=== PATIENT | male | born 1935 | race Caucasian/White ===

== ENCOUNTER 2018-01-05 09:30 | Day surgery (SDC) | payer MEDICARE, SELFPAY ==
--- NOTE | 2018-01-04 12:53 | W.PIPPEYE ---
History of Present Illness Chief Complaint: Progressive decreased vision, both eyes Narrative: The patient is an 82-year-old male who presented with complaints of progressive decreased vision in both eyes at both distance and near. He has difficulty reading and watching television. On examination he was noted to have visual acuity of 20/50 in each eye in the presence of moderate nuclear and cortical cataracts OU. He also has significant disc cupping OU. The option of cataract surgery was offered to the patient and he wished to proceed. The patient desires cataract surgery in both eyes on the same day. The risks of bilateral sequential same-day cataract surgery were discussed with the patient. Understanding the risks, he wished to proceed. [facility] Medical History Nuclear cataract of both eyes (Acute) Cortical cataract of both eyes (Acute) Social History Smoking/Tobacco Use Status: Never Meds Home Medications Medication Instructions Recorded Confirmed Type levothyroxine 88 mcg PO DAILY 12/31/17 12/31/17 History aspirin 325 mg PO DAILY 01/01/18 01/01/18 History Allergies Allergy/AdvReac Type Severity Reaction Status Date / Time No Known Allergies Allergy Unverified 06/07/14 00:18 Exam OCULAR EXAM:: Visual acuity at distance: 20/50 right eye, 20/50 left eye. Pupils: Pupils equal, round, and reactive without afferent pupillary defect IOP: 16 OD, 15 OS Extraocular Motility: Normal Pertinent Slit Lamp Findings: Pupils dilate to 5 mm OU. 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 2+ nuclear with 3+ cortical cataract is present OD. 2+ nuclear/cortical cataract is present OS. 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 Dilated Funduscopic Examination: Disc cupping is 0.85 OD, 0.7 OS. The optic nerves have good color. Retinal vasculature shows marketed AV nicking. The right macula is normal. There is a trace epiretinal membrane in the left eye with mild pigmentary changes. Peripheral retina is normal OU. BRIGHTNESS ACUITY TESTING (BAT):: Off right eye 20/50, left eye 20/50. Low: Right eye 20/60, left eye 20/25. Medium: Right eye 20/80, left eye 20/40. High: Right eye 20/125, left eye 20/60. Assessment and Plan (1) Cortical cataract of both eyes: Current visit: No Status: Acute Assessment: Visually significant bilateral cortical cataracts with desire for bilateral sequential same-day cataract surgery Plan: Bilateral sequential same-day cataract surgery under local anesthesia with MAC (2) Nuclear cataract of both eyes: Current visit: No Status: Acute Assessment: Visually significant bilateral nuclear cataracts with desire for bilateral sequential same-day cataract surgery Plan: Bilateral sequential same-day cataract surgery under local anesthesia with MAC Note: NOTE:: The details of the planned surgery, including the risks, indications,limitations,expectations,outcome and possible complications were explained to the patient. The patient understands the complications including, but not limited to: infection, hemorrhage, posterior dislocation of the lens or nuclear fragments which may require the intervention of a vitreoretinal surgeon, possible loss of the eye, or from anesthetic complications. The patient has been made aware of the option of not having surgery, that vision following surgery may not be equal to that prior to surgery, and that the planned surgery may not achieve the intended results. Following this discussion, which the patient appeared to understand, the patient wishes to proceed with cataract surgery with lens implantation of the affected eye to improve and maximize vision. In addition, the risks of bilateral same-day sequential cataract surgery was discussed with the patient, and understanding the risks he wished to proceed. Intracameral moxifloxacin will be used for antibiotic prophylaxis, as well as a postoperative topical combination of moxifloxacin/dexamethasone.
[2018-01-05 09:53] VITALS: BP 133/74; PULSE 73; RESP 16; TEMP 35.6; O2SAT 94
[2018-01-05] MEDS: Tetracaine 0.5% 4 ML BTL OU ×4 (10:03→11:03)
[2018-01-05] MEDS: Lactated Ringers 1,000 ML 30 ML IV (10:35)
[2018-01-05] MEDS: Lidocaine 2% Jelly 6 ML SYR ×2 (11:03→11:49)
[2018-01-05] MEDS: Balanced Salt Soln.-PLUS 500 ML BAG ×2 (11:12→11:48)
[2018-01-05] MEDS: Lidocaine 1% Pres-Free 5 ML VIAL ×2 (11:12→11:48)
[2018-01-05] MEDS: Povidone-Iodine Ophth 30 ML BTL ×2 (11:20→11:49)
--- NOTE | 2018-01-05 12:08 | W.PM.DSUDISC ---
Discharge Plan Discharge Details Reason For Visit: CATARACT OU Attending Provider: Onel De La Cruz Primary Care Provider: Philip Manning Home Meds and New Rx's Prescriptions: No Action levothyroxine 88 mcg Capsule 88 mcg PO DAILY RF: 0 aspirin 325 mg Tablet,Delayed Release (Dr/Ec) 325 mg PO DAILY RF: 0 Discharge Instructions Stand Alone Forms: Post-op Topical Cataract, Kassie Hugo (DSU) DS: Diagnosis Discharge Diagnosis (1) Cortical cataract of both eyes: Status: Resolved (2) Nuclear cataract of both eyes: Status: Resolved (3) Status post cataract extraction and insertion of intraocular lens of right eye: Status: Chronic (4) Status post cataract extraction and insertion of intraocular lens of left eye: Status: Chronic
--- NOTE | 2018-01-05 12:09 | W.PM.OP ---
Date of service: 01/05/18 Time of Service: 12:09 Operative Note PRE-OP DIAGNOSIS: Cataract, both eyes POST-OP DIAGNOSIS: same PROCEDURE: Immediately sequential bilateral cataract extraction using phacoemulsification with intraocular lens implants SURGEON: Onel De La Cruz ANESTHESIA: MAC and local (sub-tenon's anesthetic infiltration) PATHOLOGY: none sent COMPLICATIONS: None Patient was transported to: same day Patient's condition: stable Implants: Harshad and Harshad Vision / [employer] Tecnis ZCB00 Indications: Progressive decreased vision due to cataract, both eyes Procedure Description: CATARACT SURGERY OPERATIVE REPORT PREOPERATIVE DIAGNOSIS: Bilateral nuclear/cortical cataract, symptomatic, with desire for same day immediately sequential bilateral cataract surgery POSTOPERATIVE DIAGNOSIS: Same OPERATION: Immediately sequential bilateral cataract extraction using phacoemulsification with posterior chamber intraocular lens implant, both eyes IOL OS: IOL Pullboat Engineer/Model: J&J Vision / ANGELICA Tecnis ZCB00 IOL Power: + 23.50 diopters IOL Serial Number: [id number] Optic Diameter: 6.0mm Haptic/Overall Diameter: 13.0mm PHACO INFO OS: Chalo Centurion Vision System with OZil and Active Fluidics Cumulative Dispersed Energy (CDE): 7.03 seconds IOL OD: IOL Pullboat Engineer/Model: J&J Vision / ANGELICA Tecnis ZCB00 IOL Power: + 23.50 diopters IOL Serial Number: [id number] Optic Diameter: 6.0mm Haptic/Overall Diameter: 13.0mm PHACO INFO OD: Chalo [employer]ion Vision System with OZil and Active Fluidics Cumulative Dispersed Energy (CDE): 4.07 seconds SURGEON: Onel De La Cruz MD, N[place]HOLE ANESTHESIA: Monitored Anesthesia Care (MAC), with local sub-tenon's anesthetic infiltration COMPLICATIONS: None SPECIMENS: None INDICATIONS FOR PROCEDURE: The patient is an 82-year-old male with history of bilateral nuclear and cortical cataracts. He was noted to have significant symptoms related to his cataracts and desired cataract surgery and attempt to improve and maximize his vision. In addition, he desired bilateral same-day sequential cataract surgery. Understanding the risks inherent in bilateral same-day surgery, he wished to proceed. PROCEDURE: The correct surgical eye(s) were identified and marked as the left and right eye and the pupils were dilated in the preoperative area using mydriatics and cycloplegics. The dilated pupil size was 5.5 mm in each eye. The patient elected to proceed without IV or oral sedation. The patient was brought to the operating room where cardiopulmonary monitoring was instituted and surgical time-out was performed, confirming the correct operative eye sequence and IOL power, which happens to be the same for each eye. Topical anesthesia was administered and ophthalmic povidone-iodine 5% was instilled into the conjunctival fornices of the left eye. Lidocaine gel was applied to the cornea and the tiarra-ocular area was prepped with Betadine 10% solution and draped in the usual sterile fashion for intraocular surgery. Steri-strips were used to cover the lashes and lid margins and an adhesive eye drape was placed. Care was taken to isolate the lashes and lid margins under the Steri-strips and adhesive eye drape. A lid speculum was placed between the lids of the operative eye and the Walter-Lam operating microscope was maneuvered into position. Ravinder scissors were then used to make a conjunctival buttonhole approximately 6mm posterior to the limbus in the inferonasal quadrant. Blunt dissection was carried out to expose bare sclera, and a blunt-tipped sub-tenon?s anesthesia cannula was introduced and passed posteriorly along the globe where non-preserved plain lidocaine was injected into posterior sub-Tenon?s space. A sideport knife was used to make a paracentesis port at the 12:00 postion and the anterior chamber was filled with Healon GV. A 2.4mm keratome knife was used to create a half-thickness groove at the limbus and then to construct a three-plane near-clear corneal tunnel extending 2.0mm into clear cornea at the 3:00 position. A flap was raised on the anterior capsule and capsulorhexis forceps were used to complete a continuous curvilinear capsulorhexis of 5.0mm. Balanced salt solution was then used to perform cortical cleaving hydrodissection and nuclear hydrodelineation until the lens could be freely rotated within the capsular bag. The lens nucleus was then disassembled and removed within the capsular bag and iris plane using phacoemulsification. Residual cortical material was removed using the 45-degree angled silicone I/A tip with 0.3mm port. The posterior capsule was carefully polished to remove as much residual lens epithelial cells as safely possible. The capsular bag was then inflated and the anterior chamber deepened with viscoelastic. The lens implant described above was inserted into the capsular bag using the ANGELICA [place] Injector. A Kuglen hook was used to dial the IOL into position. Residual viscoelastic was then removed first from posterior to the IOL, then from the anterior chamber using the I/A handpiece. The lens implant was noted to center nicely within the capsular bag. The incisions were stromally hydrated, and the anterior chamber was reformed using BSS. Then 0.4cc of moxifloxacin 1.5mg/ml were injected into the capsular bag and anterior chamber. The incisions were checked with a Weck spear and found to be secure. Several drops of ophthalmic povidone-iodine 5% were then applied to the eye followed by two drops of Imprimis combination moxifloxacin/dexamethasone solution. The drapes were removed and a clear plastic protective eye shield was placed over the eye. Attention was then directed to the right eye, where an entirely new set of instruments, medications, viscoelatics, fluids, drapes, gowns, gloves were used as if it was a completely different I have a completely different patient. Topical anesthesia was administered to the right eye and ophthalmic povidone-iodine 5% was instilled into the conjunctival fornices. Lidocaine gel was applied to the cornea and the tiarra-ocular area was prepped with Betadine 10% solution and draped in the usual sterile fashion for intraocular surgery. Steri-strips were used to cover the lashes and lid margins and an adhesive eye drape was placed. Care was taken to isolate the lashes and lid margins under the Steri-strips and adhesive eye drape. A lid speculum was placed between the lids of the right ye and the Walter-Lam operating microscope was maneuvered into position. Ravinder scissors were then used to make a conjunctival buttonhole approximately 6mm posterior to the limbus in the inferonasal quadrant. Blunt dissection was carried out to expose bare sclera, and a blunt-tipped sub-tenon?s anesthesia cannula was introduced and passed posteriorly along the globe where non-preserved plain lidocaine was injected into posterior sub-Tenon?s space. A sideport knife was used to make a paracentesis port at the 7:00 postion and the anterior chamber was filled with Healon GV. A 2.4mm keratome knife was used to create a half-thickness groove at the limbus and then to construct a three-plane near-clear corneal tunnel extending 2.0mm into clear cornea at the 10;00 position. A flap was raised on the anterior capsule and capsulorhexis forceps were used to complete a continuous curvilinear capsulorhexis of 5.0. 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 Balanced salt solution was then used to perform cortical cleaving hydrodissection and nuclear hydrodelineation until the lens could be freely rotated within the capsular bag. The lens nucleus was then disassembled and removed within the capsular bag and iris plane using phacoemulsification. Residual cortical material was removed using the 45-degree angled silicone I/A tip with 0.3mm port. The posterior capsule was carefully polished to remove as much residual lens epithelial cells as safely possible. The capsular bag was then inflated and the anterior chamber deepened with viscoelastic. The lens implant described above was inserted into the capsular bag using the ANGELICA [place] Injector. A Kuglen hook was used to dial the IOL into position. Residual viscoelastic was then removed first from posterior to the IOL, then from the anterior chamber using the I/A handpiece. The lens implant was noted to center nicely within the capsular bag. The incisions were stromally hydrated, and the anterior chamber was reformed using BSS. Then 0.4cc of moxifloxacin 1.5mg/ml were injected into the capsular bag and anterior chamber. The incisions were checked with a Weck spear and found to be secure. Several drops of ophthalmic povidone-iodine 5% were then applied to the eye followed by two drops of Imprimis combination moxifloxacin/dexamethasone solution. The drapes were removed and a clear plastic protective eye shield was placed over the eye. The patient was then returned to Same Day Surgery in stable condition.
--- NOTE | 2018-01-05 12:13 | ROE_ITS ---
Date of service: 01/05/18 Time of Service: 12:09 Operative Note PRE-OP DIAGNOSIS: Cataract, both eyes POST-OP DIAGNOSIS: same PROCEDURE: Immediately sequential bilateral cataract extraction using phacoemulsification with intraocular lens implants SURGEON: Onel De La Cruz ANESTHESIA: MAC and local (sub-tenon's anesthetic infiltration) PATHOLOGY: none sent COMPLICATIONS: None Patient was transported to: same day Patient's condition: stable Implants: Harshad and Harshad Vision / [employer] Tecnis ZCB00 Indications: Progressive decreased vision due to cataract, both eyes Procedure Description: CATARACT SURGERY OPERATIVE REPORT PREOPERATIVE DIAGNOSIS: Bilateral nuclear/cortical cataract, symptomatic, with desire for same day immediately sequential bilateral cataract surgery POSTOPERATIVE DIAGNOSIS: Same OPERATION: Immediately sequential bilateral cataract extraction using phacoemulsification with posterior chamber intraocular lens implant, both eyes IOL OS: IOL Bowling Ball Mold Assembler/Model: J&J Vision / ANGELICA Tecnis ZCB00 IOL Power: + 23.50 diopters IOL Serial Number: [id number] Optic Diameter: 6.0mm Haptic/Overall Diameter: 13.0mm PHACO INFO OS: Chalo [employer] Vision System with OZil and Active Fluidics Cumulative Dispersed Energy (CDE): 7.03 seconds IOL OD: IOL Bowling Ball Mold Assembler/Model: J&J Vision / ANGELICA Tecnis ZCB00 IOL Power: + 23.50 diopters IOL Serial Number: [id number] Optic Diameter: 6.0mm Haptic/Overall Diameter: 13.0mm PHACO INFO OD: Chalo [employer] Vision System with OZil and Active Fluidics Cumulative Dispersed Energy (CDE): 4.07 seconds SURGEON: Onel De La Cruz MD, NICHOLE ANESTHESIA: Monitored Anesthesia Care (MAC), with local sub-tenon's anesthetic infiltration COMPLICATIONS: None SPECIMENS: None INDICATIONS FOR PROCEDURE: The patient is an 82-year-old male with history of bilateral nuclear and cortical cataracts. He was noted to have significant symptoms related to his cataracts and desired cataract surgery and attempt to improve and maximize his vision. In addition, he desired bilateral same-day sequential cataract surgery. Understanding the risks inherent in bilateral same-day surgery, he wished to proceed. PROCEDURE: The correct surgical eye(s) were identified and marked as the left and right eye and the pupils were dilated in the preoperative area using mydriatics and cycloplegics. The dilated pupil size was 5.5 mm in each eye. The patient elected to proceed without IV or oral sedation. The patient was brought to the operating room where cardiopulmonary monitoring was instituted and surgical time-out was performed, confirming the correct operative eye sequence and IOL power, which happens to be the same for each eye. Topical anesthesia was administered and ophthalmic povidone-iodine 5% was instilled into the conjunctival fornices of the left eye. Lidocaine gel was applied to the cornea and the tiarra-ocular area was prepped with Betadine 10% solution and draped in the usual sterile fashion for intraocular surgery. Steri -strips were used to cover the lashes and lid margins and an adhesive eye drape was placed. Care was taken to isolate the lashes and lid margins under the Steri -strips and adhesive eye drape. A lid speculum was placed between the lids of the operative eye and the Walter-Lam operating microscope was maneuvered into position. Ravinder scissors were then used to make a conjunctival buttonhole approximately 6mm posterior to the limbus in the inferonasal quadrant. Blunt dissection was carried out to expose bare sclera, and a blunt-tipped sub-tenon? s anesthesia cannula was introduced and passed posteriorly along the globe where non-preserved plain lidocaine was injected into posterior sub-Tenon?s space. A sideport knife was used to make a paracentesis port at the 12:00 postion and the anterior chamber was filled with Healon GV. A 2.4mm keratome knife was used to create a half-thickness groove at the limbus and then to construct a three-plane near-clear corneal tunnel extending 2.0mm into clear cornea at the 3:00 position. A flap was raised on the anterior capsule and capsulorhexis forceps were used to complete a continuous curvilinear capsulorhexis of 5.0mm. Balanced salt solution was then used to perform cortical cleaving hydrodissection and nuclear hydrodelineation until the lens could be freely rotated within the capsular bag. The lens nucleus was then disassembled and removed within the capsular bag and iris plane using phacoemulsification. Residual cortical material was removed using the 45-degree angled silicone I/A tip with 0.3mm port. The posterior capsule was carefully polished to remove as much residual lens epithelial cells as safely possible. The capsular bag was then inflated and the anterior chamber deepened with viscoelastic. The lens implant described above was inserted into the capsular bag using the ANGELICA [place] Injector. A Kuglen hook was used to dial the IOL into position. Residual viscoelastic was then removed first from posterior to the IOL, then from the anterior chamber using the I/A handpiece. The lens implant was noted to center nicely within the capsular bag. The incisions were stromally hydrated , and the anterior chamber was reformed using BSS. Then 0.4cc of moxifloxacin 1.5mg/ml were injected into the capsular bag and anterior chamber. The incisions were checked with a Weck spear and found to be secure. Several drops of ophthalmic povidone-iodine 5% were then applied to the eye followed by two drops of Imprimis combination moxifloxacin/dexamethasone solution. The drapes were removed and a clear plastic protective eye shield was placed over the eye. Attention was then directed to the right eye, where an entirely new set of instruments, medications, viscoelatics, fluids, drapes, gowns, gloves were used as if it was a completely different I have a completely different patient. Topical anesthesia was administered to the right eye and ophthalmic povidone- iodine 5% was instilled into the conjunctival fornices. Lidocaine gel was applied to the cornea and the tiarra-ocular area was prepped with Betadine 10% solution and draped in the usual sterile fashion for intraocular surgery. Steri -strips were used to cover the lashes and lid margins and an adhesive eye drape was placed. Care was taken to isolate the lashes and lid margins under the Steri -strips and adhesive eye drape. A lid speculum was placed between the lids of the right ye and the Walter-Alm operating microscope was maneuvered into position. Ravinder scissors were then used to make a conjunctival buttonhole approximately 6mm posterior to the limbus in the inferonasal quadrant. Blunt dissection was carried out to expose bare sclera, and a blunt-tipped sub-tenon? s anesthesia cannula was introduced and passed posteriorly along the globe where non-preserved plain lidocaine was injected into posterior sub-Tenon?s space. A sideport knife was used to make a paracentesis port at the 7:00 postion and the anterior chamber was filled with Healon GV. A 2.4mm keratome knife was used to create a half-thickness groove at the limbus and then to construct a three-plane near-clear corneal tunnel extending 2.0mm into clear cornea at the 10;00 position. A flap was raised on the anterior capsule and capsulorhexis forceps were used to complete a continuous curvilinear capsulorhexis of 5.0. 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 Balanced salt solution was then used to perform cortical cleaving hydrodissection and nuclear hydrodelineation until the lens could be freely rotated within the capsular bag. The lens nucleus was then disassembled and removed within the capsular bag and iris plane using phacoemulsification. Residual cortical material was removed using the 45-degree angled silicone I/A tip with 0.3mm port. The posterior capsule was carefully polished to remove as much residual lens epithelial cells as safely possible. The capsular bag was then inflated and the anterior chamber deepened with viscoelastic. The lens implant described above was inserted into the capsular bag using the ANGELICA [place] Injector. A Kuglen hook was used to dial the IOL into position. Residual viscoelastic was then removed first from posterior to the IOL, then from the anterior chamber using the I/A handpiece. The lens implant was noted to center nicely within the capsular bag. The incisions were stromally hydrated , and the anterior chamber was reformed using BSS. Then 0.4cc of moxifloxacin 1.5mg/ml were injected into the capsular bag and anterior chamber. The incisions were checked with a Weck spear and found to be secure. Several drops of ophthalmic povidone-iodine 5% were then applied to the eye followed by two drops of Imprimis combination moxifloxacin/dexamethasone solution. The drapes were removed and a clear plastic protective eye shield was placed over the eye. The patient was then returned to Same Day Surgery in stable condition.
[2018-01-05 13:05] VITALS: BP 116/66; PULSE 70; RESP 20; TEMP 37.2; O2SAT 94
== END 2018-01-05 13:01 | disposition home or self-care (01) ==
LOC: SUR 09:32
PROVIDERS: PCP Family Medicine Adult Medicine; Visit Provider Ophthalmology
PROC: (CPT 66984; principal; 2018-01-05 12:30)
DX: H25.813 Combined forms of age-related cataract, bilateral (principal); I10 Essential (primary) hypertension
CPT/HCPCS: 66984; V2632

== ENCOUNTER 2018-03-13 13:28 | Emergency (ER) | payer MEDICARE, SELFPAY ==
[2018-03-13 13:34] VITALS: BP 139/89; PULSE 83; RESP 24; TEMP 36.5; O2SAT 97
--- NOTE | 2018-03-13 13:45 | DI.RAD_ITS ---
SYMPTOMS/DIAGNOSIS: SHORTNESS OF BREATH, COUGHING X 3 WEEKS CHEST X-RAY, AP AND LATERAL: Comparison is 02/07/12. The heart size and pulmonary vasculature are within normal limits. The patient has an aortic valve replacement. 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 No evidence of a superimposed pneumonia or congestive heart failure is seen. No gross effusions or pneumothoraces are identified. Degenerative changes are seen in the spine. IMPRESSION: No acute pulmonary process.
--- NOTE | 2018-03-13 13:54 | ED.GENADUL_ITS ---
Discharge Plan Disposition Patient Disposition: HOME Discharge Details Chief Complaint: Chest Pain Primary Care Provider: Philip Manning ED Provider: Carlyn Lucas Home Meds and New Rx's Prescriptions: Continued levothyroxine 88 mcg Capsule 88 mcg PO DAILY RF: 0 aspirin 325 mg Tablet,Delayed Release (Dr/Ec) 325 mg PO DAILY RF: 0 ciprofloxacin HCl 500 mg Tablet 1 tab PO DAILY RF: 0 prednisone 10 mg Tablets,Dose Pack RF: 0 Breo Ellipta 100-25 mcg/dose Blister With Device 1 inh INHALATION DAILY RF: 0 Discharge Data Discharge Date/Time-TO BE ENTERED AT DEPARTURE: 03/13/18 18:28 Medical Decision Making <Dimitrios Najera NP - Last Filed: 03/22/18 21:45> Patient presenting to the emergency department for chief complaint of chest pain. Patient states that this is been going on now for a couple days now. He reports that he took some antacid this morning thinking it would help his symptoms but this did not improve. Patient was encouraged by family members to come to the emergency department for evaluation. Patient does state that he is recently been not been on prednisone for his pulmonary fibrosis but denies any difficulty breathing compared to baseline. Physical exam is unremarkable and nondiagnostic but plan to draw troponin and rule out ACS.. There is concern for this being more of a gastritis and GERD type issue given the patient has been on prednisone for multiple days now and has history of gastritis. Patient given GI cocktail pending results Review of labs show a nonspecific leukocytosis and electrolyte abnormalities along with an increase of BUN/creatinine may be attributed to some dehydration the patient states he has not been eating or drinking as much since the onset of what he initially thought was heartburn. Chest x-ray shows no acute abnormalities. Patient was agreeable to second troponin. Patient ordered a 500 mL bolus for concern of dehydration. Pending repeat troponin test care of patient was signed out to Carlyn CATES. Patient did state some improvement after GI cocktail and reduction of discomfort. ECG Data Attestation: I personally reviewed and interpreted this ECG (s) as follows: Prior ECG tracings: available for review Interpretation: sinus rhythm , rate 69, RBBB, no acute ischemic ST changes <LOAN Yan - Last Filed: 03/14/18 00:08> Care was transition to myself rom Arturo Najera NP with repeat troponin pending. Initial laboratory workup significant for possible dehydration, unknown baseline for the patient. He has history of pulmonary fibrosis, aortic valve replacement. He initially reported some neck that he had been having symptoms for the past few days. However, will speak with family currently this is been waxing and waning over the past several months. Sounds to be much increased with food intake. Has been symptom-free since being here. Was given bolus while here. Patient is also begun on a recent prednisone course for his pulmonary fibrosis. [employer] was concerned that htis may have been associated with g astritis, GERD increasing from prednisone. He does report that this is been helping with his cough and shortness of breath. He is on home oxygen. Per [employer], initial EKG was significant for right bundle branch block which is unchanged from previous. Repeat troponin remains less than 0.02. I reevaluated the patient and spoke with the patient is family regarding concerns, laboratory evaluation. Again, we went over the history and I agree with [employer] assessment that this is likely stemming from gastric source. He reports that he has discussed beginning omeprazole with his primary care as they have been concerned with this previously. He has not done this as of yet. Advised that he begin the omeprazole. Encouraged hydration. He was given very strict return precautions and advised to follow-up with his primary care next week. I did advise if symptoms persist he may need a EGD versus continued cardiac workup. All other questions and concerns were addressed and they are in agreement with this plan. He is able to return with new or worsening symptoms HPI <Dimitrios Najera NP - Last Filed: 03/22/18 21:45> General Mode of arrival: ambulatory . Date/Time Provider Initiated Documentation: 03/13/18 13:45 . Limitations to Documentation: no limitations . Information obtained by: patient . History of Present Illness 82 year old M presents to the emergency department with the chief complaint of chest pain, heartburn, described as mild, with intensity rated at 1. Quality is described as burning and aching, and is localized to the chest. Patient reports no radiation. Patient started experiencing this day(s) (2) and it has been constant. No relieving factors improve symptom(s), Patient did receive the following treatments prior to arrival, other (Antacid) Related Data Home Medications Medication Instructions Recorded Confirmed levothyroxine 88 mcg PO DAILY 12/31/17 03/13/18 aspirin 325 mg PO DAILY 01/01/18 03/13/18 Breo Ellipta 1 inh INHALATION DAILY 03/13/18 03/13/18 ciprofloxacin HCl 1 tab PO DAILY 03/13/18 03/13/18 prednisone 03/13/18 Allergies Allergy/AdvReac Type Severity Reaction Status Date / Time No Known Allergies Allergy Unverified 03/13/18 14:17 General Stated Complaint: Chest Pain SHAHRIAR: 2 Review of Systems <Dimitrios Najera NP - Last Filed: 03/22/18 21:45> Constitutional Denies chills, Denies fever(s) and Reports malaise Cardiovascular Reports as per HPI, Reports chest pain, Denies chest pain with activity, Denies syncope, Denies irregular heart rhythm, Denies palpitations and Reports dyspnea on exertion Respiratory Denies chest congestion, Denies excessive phlegm production and Reports dyspnea on exertion Gastrointestinal Denies abdominal pain, Reports heartburn, Denies nausea and Denies vomiting Neurologic Denies syncope Psychiatric Denies anxiety Endocrine Denies palpitations PFSH <Dimitrios Najera NP - Last Filed: 03/22/18 21:45> Medical History Hypothyroidism (Chronic) Pulmonary fibrosis (Acute) Hypertension (Chronic) Cortical cataract of both eyes (Resolved) Nuclear cataract of both eyes (Resolved) Surgical History Aortic valve replaced (Acute) Status post cataract extraction and insertion of intraocular lens of left eye (Chronic 01/05/18) Status post cataract extraction and insertion of intraocular lens of right eye (Chronic 01/05/18) Social History Smoking/Tobacco Use Status: Never Exam <Dimitrios Najera NP - Last Filed: 03/22/18 21:45> Const General: cooperative, healthy appearing, comfortable, no acute distress, not diaphoretic and not ill appearing Nutritional Appearance: average body habitus Orientation: alert, awake and oriented x3 Limitations: mental status not altered Neck Neck: normal visual inspection, full ROM, trachea midline, supple and no anterior neck swelling Thyroid: thyroid normal Carotids: normal carotid upstroke and no bruits Chest Chest: normal inspection of the chest Resp Effort & Inspection: normal respiratory effort, able to speak in complete sentences, respiratory effort not decreased, no grunting and not labored Auscultation: rhonchi right upper and right lower Cardio Jugular venous pressure: no JVD Palpation: normal PMI Rate: regular rate Rhythm: regular rhythm Heart Sounds: S1 normal, S2 normal, no click, no gallops, no murmurs and no rubs Bruits: no abdominal aortic bruits and no carotid bruits Pulses: radial pulses present bilaterally 2+ GI Inspection: normal to inspection Palpation: soft, no aortic enlargement, no pulsatile masses and nontender Auscultation: normal bowel sounds Skin General skin exam: no rashes or lesions noted Neuro General: alert, awake, oriented x3, tone normal and moves all extremities Course <Dimitrios Najera NP - Last Filed: 03/22/18 21:45> Vital Signs Temperature 36.5 C 03/13/18 13:34 Pulse 83 03/13/18 13:34 Respiratory Rate 24 03/13/18 13:34 Blood Pressure 139/89 03/13/18 13:34 Pulse Oximetry 97 03/13/18 13:34 Temperature 36.5 C 03/13/18 13:34 Temperature Source Temporal Artery Scan 03/13/18 13:34 Pulse 83 03/13/18 13:34 Respiratory Rate 24 03/13/18 13:34 Blood Pressure 139/89 03/13/18 13:34 Pulse Oximetry 97 03/13/18 13:34 Oxygen Delivery Method Nasal Cannula 03/13/18 13:34 Oxygen Flow Rate 2 03/13/18 13:34 Sign Out <Dimitrios Najera NP - Last Filed: 03/22/18 21:45> Sign Out Data: Sign Out Comment: Patient signed out to Carlyn CATES for follow-up of second troponin, and reassessment and disposition as needed. High concern of gastritis/heartburn due to prednisone use and patient stating not taking meds with food. Otherwise patient states asymptomatic at time of signout Last updated by Dimitrios Najera NP at 03/13/18 16:42
[2018-03-13 14:03] LABS: Abs Immature Grans 0.07 k/cumm (0.0-0.09); Absolute Basophil Count 0.01 k/cumm (0.0-0.2); Absolute Eosinophil Count 0.01 k/cumm (0.0-0.7); Absolute Neutrophil Count 11.49 k/cumm (1.2-6.7); Basophils % 0.1; Eosinophils % 0.1; HCT 46.2 % (40.0-50.0); HGB 14.5 g/dL (13.5-17.5); Immature Grans % 0.5; Lymphocytes % 6.3; Mean Corp. HGB Concentration 31.4 g/dL (32.0-36.0); Mean Corpuscular Hemoglobin 27.9 pg (27.0-33.0); Mean Platelet Volume 8.7 fL (8.0-11.0); Monocytes % 3.1; Neutrophils % 89.9; Platelet Count 361 x1000/uL (130-400); RBC 5.19 m/cumm (4.50-6.00); RBC Distribution Width 15.2 % (11.8-14.1); White Blood Cell Count 12.78 k/cumm (4.4-10.8)
[2018-03-13 14:05] LABS: Absolute Lymphocyte Count 0.81 k/cumm (1.2-3.4)
[2018-03-13 14:16] LABS: INR 1.1 (0.9-1.1); Prothrombin Time 10.6 sec (9.3-11.0)
[2018-03-13 14:23] LABS: ALT 26 U/L (12-78); AST 27 U/L (15-37); Albumin 2.9 g/dL (3.4-5.0); Alkaline Phosphatase 140 U/L (46-116); Anion Gap 6.1 mmol/L (3-11); BUN 34 mg/dL (7-18); Bilirubin, Total 0.3 mg/dL (0.2-1.0); CO2 31.9 mmol/L (21.0-32.0); CREATININE 1.33 mg/dL (0.70-1.30); Calcium 8.9 mg/dL (8.5-10.1); Chloride 97 mmol/L (98-107); Estimated GFR 51.48 (mL/min/1.73m2); Glucose 139 mg/dL (70-100); NT-proBNP 312 pg/mL; Potassium 5.2 mmol/L (3.5-5.1); Sodium 135 mmol/L (136-145)
[2018-03-13 14:28] LABS: Troponin I < 0.02 ng/mL (0.00-0.06)
--- NOTE | 2018-03-13 14:34 | NUR.NOTE ---
patient medicated per [employer] order Nursing Note:
[2018-03-13 15:24] VITALS: PULSE 72; RESP 20; O2SAT 96
[2018-03-13 15:30] VITALS: PULSE 68; RESP 15; O2SAT 95
[2018-03-13 15:31] VITALS: BP 108/66; PULSE 66; PULSE 82; RESP 19; O2SAT 96
--- NOTE | 2018-03-13 15:34 | NUR.NOTE ---
patient reports chest burning is improved from intervention Nursing Note:
[2018-03-13 15:40] VITALS: PULSE 68; RESP 26; O2SAT 96
[2018-03-13] MEDS: Normal Saline 500 ML IV (16:36)
--- NOTE | 2018-03-13 16:37 | NUR.NOTE ---
patient mediicated per MD order Nursing Note:
[2018-03-13 17:57] LABS: Troponin I < 0.02 ng/mL (0.00-0.06)
[2018-03-13 18:15] VITALS: BP 151/83; PULSE 80; RESP 18; O2SAT 96
--- NOTE | 2018-03-13 18:16 | NUR.NOTE ---
IV dc'd per PA order, patient to be discharged home with daughter Nursing Note:
== END 2018-03-13 18:28 | disposition home or self-care (01) ==
PROVIDERS: Nurse Practitioner Family; Emergency Provider Physician Assistant; PCP Family Medicine Adult Medicine
DX: R07.9 Chest pain, unspecified (principal); I45.10 Unspecified right bundle-branch block; I10 Essential (primary) hypertension
CPT/HCPCS: 36415; 80053; 93005; 96360; 99285; 71046; 83735; 83880; 84484; 85025; 85610; 85730; 93010; 99284

== ENCOUNTER 2019-12-31 07:50 | Emergency (ER) | payer MEDICARE, SELFPAY ==
[2019-12-31 07:57] VITALS: BP 174/90; PULSE 78; RESP 20; TEMP 36.4; O2SAT 96
--- NOTE | 2019-12-31 08:13 | ED.GENADUL_ITS ---
Discharge Plan Disposition Patient Disposition: AGAINST MEDICAL ADVICE Condition: Stable Discharge Details Clinical Impression: Epistaxis Primary Care Provider: Philip Manning ED Provider: Rajinder Grajeda Home Meds and New Rx's Prescriptions: No Action aspirin 325 mg tablet,delayed release (DR/EC) 81 mg PO DAILY RF: 0 omeprazole 20 mg capsule,delayed release(DR/EC) 20 mg PO DAILY RF: 0 Stiolto Respimat 2.5-2.5 mcg/actuation Mist 1 spray INHALATION DAILY RF: 0 baclofen 5 mg tablet 5 mg PO DAILY RF: 0 levothyroxine 88 mcg Capsule 88 mcg PO DAILY RF: 0 ciprofloxacin HCl 500 mg Tablet 1 tab PO DAILY RF: 0 prednisone 10 mg Tablets,Dose Pack 10 mg PO DAILY RF: 0 Medical Decision Making 84 yo male on aspirin no other blood thinners comes in after he started to have spontaneous epistaxis out of the right nare this morning aroud 630. Denies any trauma, fevers, chest pain, headache or dyspnea. Has bright red blood coming out of the right nare and entire anterior nare is hyperemic. After 15 minutes of holding pressure had no relief and did not feel afrin was going to control the bleed so after discussion and consent I placed a rhino rocket with successful cessation of bleeding, will monitor here. shortly after placing rhino rocket he started to have oozing out of the left nose, no visible bleeding noted on exam but even after pressure and nose blowing had definitive bleeding coming out of the left nose. He consents to having another rhino rocket placed in other nose, will have nursing place on tele and will evaluate for anemic and thromboyctopenia. BP now 127/[address] rivera from ENT at [facility] who recommends observing in the ED and attempting removal of one rhino rocket and if successful can be d/c'd, but if unsuccessful to call back. Will continue to monitor remains hd stable patient still had oozing from the left nare after removal. I recommended I replace the packing but he declined and is requesting d/c. He does not want to wait for me to speak with ENT and doesn't want another packing, he understands risks of leaving including and disability that could be permanent and has the capacity to make his own decisions. HE understands if bleeding doesn't stop or if he changes his mind he should be seen in the emergency department Differential Diagnosis Differential Diagnosis: epistaxis, anterior nosebleed, posterior nosebleed HPI General Mode of arrival: ambulatory . Date/Time Provider Initiated Documentation: 12/31/19 07:57 . Limitations to Documentation: no limitations . Information obtained by: patient . History of Present Illness 84 year old M presents to the emergency department with the chief complaint of nosebleed, described as moderate, No relieving factors improve symptom(s), No exacerbating factors reported . Patient did receive the following treatments prior to arrival, none Related Data Home Medications Medication Instructions Recorded Confirmed levothyroxine 88 mcg PO DAILY 12/31/17 12/31/19 ciprofloxacin HCl 1 tab PO DAILY 03/13/18 12/31/19 prednisone 10 mg PO DAILY 03/13/18 12/31/19 aspirin 325 mg tablet,delayed 81 mg PO DAILY tab 02/22/19 12/31/19 release baclofen 5 mg PO DAILY 12/31/19 12/31/19 omeprazole 20 mg PO DAILY 12/31/19 12/31/19 tiotropium-olodaterol [Stiolto 1 spray INHALATION DAILY 12/31/19 12/31/19 Respimat] Allergies Allergy/AdvReac Type Severity Reaction Status Date / Time No Known Allergies Allergy Unverified 12/31/19 08:13 General Stated Complaint: Epistaxis SHAHRIAR: 2 Review of Systems All systems reviewed & are unremarkable except as noted in HPI and below Constitutional Constitutional: Denies chills and Denies fever(s) Cardiovascular Cardiovascular: Denies chest pain and Denies dyspnea Respiratory Respiratory: Denies cough and Denies dyspnea Gastrointestinal Gastrointestinal: Denies abdominal pain, Denies nausea and Denies vomiting Musculoskeletal Musculoskeletal: Denies joint swelling [facility] Medical History (Updated 12/31/19 @ 12:17 by Rajinder Grajeda MD) Cortical cataract of both eyes Hypertension Hypothyroidism Nuclear cataract of both eyes Pulmonary fibrosis Surgical History (Updated 02/22/19 @ 09:46 by Roselyn Harrell RN, RN) Aortic valve replaced (~05/21/16) History of lung biopsy (~2005) Status post cataract extraction and insertion of intraocular lens of left eye (01/05/18) Status post cataract extraction and insertion of intraocular lens of right eye (01/05/18) Family History (Updated 02/22/19 @ 09:48 by Roselyn Harrell RN, RN) Father No problems noted. Mother Myocardial infarction Social History (Updated 02/22/19 @ 09:49 by Roselyn Harrell RN, RN) Smoking/Tobacco Use Status: Former Tobacco Use Quit Date: 02/17/09 Smoking risk assessment performed?: Yes Drug use: Never Do you feel safe at home: Yes Do you feel safe in your relationship?: Yes Exam Const General: no acute distress Orientation: alert HENMT Head: normal to inspection Ears: external ears normal General nose exam: epistaxis Mouth: moist mucous membranes Eyes General: appearance normal, both eyes and all related structures Neck Neck: normal visual inspection Resp Effort & Inspection: normal respiratory effort and able to speak in complete sentences Cardio Rate: regular rate Skin General skin exam: no rashes or lesions noted Neuro General: patient alert and patient oriented x3 Extrem General: normal to inspection Psych Mental Status: mental status grossly normal Course Vital Signs Vital signs: Vital Signs Temperature 36.4 C L 12/31/19 07:57 Pulse 78 12/31/19 07:57 Respiratory Rate 12/31/19 07:57 Blood Pressure 174/90 H 12/31/19 07:57 Pulse Oximetry 96 12/31/19 07:57 Temperature 36.4 C L 12/31/19 07:57 Temperature Source Skin 12/31/19 07:57 Pulse 78 12/31/19 07:57 Respiratory Rate 12/31/19 07:57 Blood Pressure 174/90 H 12/31/19 07:57 Blood Pressure Position Sitting 12/31/19 07:57 Pulse Oximetry 96 12/31/19 07:57 Oxygen Delivery Method Room Air 12/31/19 07:57 Oxygen Flow Rate 0 12/31/19 07:57 Procedures Epistaxis Control Time Out Performed: Yes Nostril: right Direct Inspection: yes Clots Removed by: blowing nose Device Inserted: other (rhino rocket 7.5cm)
[2019-12-31] MEDS: Tranexamic Acid 1,000 MG/10 ML VIAL 1000 MG (08:20)
[2019-12-31 09:16] LABS: Abs Immature Grans 0.03 10^3/uL (0.0-0.06); Absolute Basophil Count 0.09 10^3/uL (0.0-0.2); Absolute Eosinophil Count 0.37 10^3/uL (0.0-0.7); Absolute Lymphocyte Count 1.54 10^3/uL (1.2-3.4); Absolute Monocyte Count 0.89 10^3/uL (0.1-0.8); Absolute Neutrophil Count 5.51 10^3/uL (1.2-6.7); Basophils % 1.1; Eosinophils % 4.4; HCT 49.1 % (40.0-50.0); HGB 15.5 g/dL (13.5-17.5); Immature Grans % 0.4; Lymphocytes % 18.3; MCH 30.2 pg (27.0-33.0); MCHC 31.6 % (32.0-36.0); MCV 95.7 fL (80-95); MPV 9.3 fL (8.0-11.0); Monocytes % 10.6; Neutrophils % 65.2; Nucleated RBC 0 %; Platelet Count 244 10^3/uL (130-400); RBC 5.13 10^6/uL (4.36-5.78); RDW 12.6 % (11.8-14.1); WBC 8.43 10^3/uL (4.4-10.8)
[2019-12-31 09:34] LABS: INR 1.1 (0.9-1.1); PTT Activated 23.9 sec (21.0-27.5); Prothrombin Time 10.7 sec (9.3-11.0)
[2019-12-31] MEDS: Oxymetazolone 0.05% SPRAY 15 ML BTL NS (11:49)
[2019-12-31 12:30] VITALS: BP 125/80; PULSE 75; RESP 16; O2SAT 95
== END 2019-12-31 13:00 | disposition left against medical advice (07) ==
PROVIDERS: Emergency Provider Emergency Medicine; PCP Family Medicine Adult Medicine
DX: R04.0 Epistaxis (principal); I10 Essential (primary) hypertension; Z53.29 Procedure and treatment not carried out because of patient's decision for other reasons; Z79.82 Long term (current) use of aspirin
CPT/HCPCS: 30901; 36415; 99283; 85025; 85610; 85730; 99281

== ENCOUNTER 2021-03-30 02:15 | Outpatient (CLI) | payer MEDICARE, SELFPAY ==
[2021-03-30 08:39] LABS: HCT 52.8 % (40.0-50.0); HGB 16.5 g/dL (13.5-17.5); MCH 29.7 pg (27.0-33.0); MCHC 31.3 % (32.0-36.0); MPV 9.6 fL (8.0-11.0); Platelet Count 157 10^3/uL (130-400); RBC 5.56 10^6/uL (4.36-5.78); RDW 13.2 % (11.8-14.1); RDW-SD 46.1 fL; WBC 9.82 10^3/uL (4.4-10.8)
[2021-03-30 09:43] LABS: ALT 33 U/L (16-63); AST 33 U/L (15-37); Albumin 3.5 g/dL (3.4-5.0); Alkaline Phosphatase 138 U/L (46-116); Anion Gap 4.8 mmol/L (3-11); BUN 22 mg/dL (7-18); Bilirubin, Total 0.6 mg/dL (0.2-1.0); CO2 33.2 mmol/L (21.0-32.0); CREATININE 0.9 mg/dL (0.70-1.30); Calcium 8.8 mg/dL (8.5-10.1); Calculated LDL 141 mg/dL (<100); Chloride 103 mmol/L (98-107); Cholesterol 226 mg/dL (<200); Glucose 83 mg/dL (74-106); HDL Cholesterol 69 mg/dL (40-60); Potassium 4.2 mmol/L (3.5-5.1); Sodium 141 mmol/L (136-145); TSH (W/Ref FT4) 5.81 uIU/mL (0.36-3.74); Total Protein 7.3 g/dL (6.4-8.2); Triglyceride 84 mg/dL (<150)
[2021-03-30 10:02] LABS: FREE T4 1.12 ng/dL (0.76-1.46)
== END 2021-03-30 02:16 | disposition home or self-care (01) ==
LOC: LBO 02:15
PROVIDERS: PCP Nurse Practitioner; Visit Provider Nurse Practitioner
DX: I10 Essential (primary) hypertension (principal); E03.9 Hypothyroidism, unspecified; E78.2 Mixed hyperlipidemia
CPT/HCPCS: 36415; 80053; 80061; 85027; 84439; 84443

== ENCOUNTER 2021-09-19 15:24 | Outpatient (REF) | payer MEDICARE, SELFPAY ==
[2021-09-19 20:18] LABS: ALT 24 U/L (16-63); AST 28 U/L (15-37); Albumin 3.3 g/dL (3.4-5.0); Alkaline Phosphatase 136 U/L (46-116); Anion Gap 3.8 mmol/L (3-11); BUN 29 mg/dL (7-18); Bilirubin, Total 0.3 mg/dL (0.2-1.0); CO2 30.2 mmol/L (21.0-32.0); CREATININE 1.4 mg/dL (0.70-1.30); Calcium 8.7 mg/dL (8.5-10.1); Chloride 103 mmol/L (98-107); Estimated GFR 48.16 (mL/min/1.73m2); Glucose 163 mg/dL (74-106); Potassium 4.8 mmol/L (3.5-5.1); Sodium 137 mmol/L (136-145); TSH (W/Ref FT4) 0.51 uIU/mL (0.36-3.74); Total Protein 6.8 g/dL (6.4-8.2)
== END 2021-09-19 15:25 | disposition home or self-care (01) ==
LOC: LBN 15:24
PROVIDERS: PCP Nurse Practitioner; Visit Provider Nurse Practitioner
DX: E03.9 Hypothyroidism, unspecified (principal); I10 Essential (primary) hypertension; E78.00 Pure hypercholesterolemia, unspecified; K52.9 Noninfective gastroenteritis and colitis, unspecified; D64.9 Anemia, unspecified; J84.10 Pulmonary fibrosis, unspecified
CPT/HCPCS: 80053; 84443

== ENCOUNTER 2021-10-22 08:09 | Inpatient (IN) | payer MEDICARE, SELFPAY ==
[2021-10-22] VITALS (55 sets, daily range): BP systolic 103–133; BP diastolic 62–87; PULSE 77–185; RESP 1–54; TEMP 35.6–37.2; O2SAT 90–99
--- NOTE | 2021-10-22 08:00 | RT.EKG_ITS ---
APPROVED REPORT Exam: Resting ECG Reason for Exam: sob Patient Location: E HR:109 bpm ECG Measurements Heart Rate 109 AXIS MN 162 P 21 QRSd 134 QRS -12 QT 367 T 30 QTc 463 Conclusion Sinus tachycardia. Atrial premature complexes.. Left atrial enlargement. Right bundle branch block-old
--- NOTE | 2021-10-22 08:26 | ED.GENADUL_ITS ---
Discharge Plan Disposition Patient Disposition: [facility] INPATIENT Condition: Stable Discharge Details Clinical Impression: Pneumonia Admit Date/Time: 10/22/21 12:27 Admit Provider: Autumn Keller Attending Provider: Autumn Keller Primary Care Provider: Josie Singh ED Provider: Rosalinda Barrientos Medical Decision Making 86-year-old male presents to the ER with chief complaint of cough shortness of breath which is worsened over the last couple of days. Patient reports productive cough. He does have some scattered expiratory wheezes bilaterally, he is got some 3+ pitting edema to his bilateral lower extremities which he reports is chronic for him. Denies any chest pain or abdominal pain. He also has a history of chronic diarrhea. Past medical history includes pulmonary fibrosis, hiatal hernia with GERD, anemia, hyperlipidemia, hypothyroidism, aortic valve replacement, hypertension. Cardiac work-up ordered including serial troponins, proBNP due to pitting edema of the lower extremities and shortness of breath, chest x-ray and COVID testing. CBC shows no leukocytosis, absolute neutrophils 6.89, carbon dioxide 33.0 BUN 24 creatinine 1.2 GFR 58, glucose 148, proBNP is 1921, COVID is pending at this time. Initial troponin is slightly elevated 73. 40 mg furosemide IV ordered due to the proBNP greater than thousand. Azithromycin and Rocephin IV ordered. Will consider admission for pneumonia and CHF. Discussed results with patient and family who verbalized understanding. I did discuss my recommendation for admission for IV antibiotics and further care due to his comorbidities elevated troponin and pulmonary fibrosis. CT chest noted below, questionable fungal balls see impression. 11:00: Hospitalist paged [phone]: Spoke with Dr. Keller regarding patient who will come eval patient in ED after second troponin. Medical Records Medical records reviewed: Yes I reviewed the patient's medical records. Imaging Data Radiologic Study: Imaging: X-Ray Radiologist's impression: Clinical indication: Shortness of breath TECHNIQUE: Imaging protocol: Radiologic exam of the chest. Views: 1 view. COMPARISON: CR XR CHEST 2V PA LATERAL 03/13/2018 1:58 PM FINDINGS: Lungs: Scattered hazy airspace infiltrates are seen in the mid lungs bilaterally and right lower lung, more pronounced since the prior study. There is redemonstration of bilateral pulmonary fibrosis. Pleural spaces: Calcified pleural plaque is noted at the left lung base. There is a small right pleural effusion or pleural thickening. No evidence of pneumothorax. There is biapical pleural thickening. Heart/Mediastinum: The heart size is borderline mildly enlarged. Bones/joints: Sternotomy wires are again noted. IMPRESSION: 1. Pulmonary fibrotic changes with worsening opacities in the mid lungs and right lower lung concerning for superimposed pneumonia since the prior study. 2. Small right pleural effusion or pleural thickening. Thank you for allowing us to participate in the care of your patient. Dictated and Authenticated by: Kevin Hooper MD Radiologic Study #2: Imaging: CT Scan Radiologist's impression: XR PORTABLE CHEST AP 10/22/2021 8:32 AM FINDINGS: Lungs: Subpleural and basilar predominant honeycombing throughout both lungs. Reticular abnormalities and traction bronchiectasis. Several solid opacities identified within the areas of honeycombing within the lung base with index 2.1 x 1.9 cm opacity noted on series 3, image 439. Findings are suggestive of fungal balls. Pleural spaces: Unremarkable. No pneumothorax. No pleural effusion. Heart: Coronary artery calcifications present. The heart appears borderline enlarged. No pericardial effusion. Lymph nodes: Prominent mediastinal lymph nodes. Index 1.3 x 1 cm precarinal node noted on series 3, image 215. Evaluation for hilar adenopathy is limited in the absence of IV contrast. No axillary adenopathy. Vasculature: Moderate atherosclerotic calcification of the aorta and its branches. Dilated pulmonary arteries with the main pulmonary artery measuring 3.6 cm in diameter. Diaphragm: Large hiatal hernia. Bones/joints: Mild compression deformities of T8 and L1. Soft tissues: Unremarkable. IMPRESSION: 1. Interstitial lung disease with usual interstitial pneumonitis (UIP) pattern. Differential diagnosis for etiology includes idiopathic pulmonary fibrosis or secondary underlying systemic diseases such as connective tissue disease. 2. Scattered solid opacities identified within areas of honeycombing in the lung bases suggestive of fungal balls, possibly aspergillomas. 3. Nonspecific prominent mediastinal lymph nodes. 4. Mild compression deformities of T8 and L1. 5. Dilated pulmonary arteries which can be seen in the setting of pulmonary hypertension. Thank you for allowing us to participate in the care of your patient. Dictated and Authenticated by: Abe Sanchez MD Lab Data Lab results reviewed: Yes I reviewed the patient's lab results. Labs: 10/22/21 10:45 Blood Blood Culture - Pending 10/22/21 08:58 Blood Blood Culture - Pending Laboratory Tests Range/Units 10/22/21 10/22/21 10/22/21 08:54 08:54 08:58 WBC (4.4-10.8) 10^3/uL 8.30 RBC (4.36-5.78) 10^6/uL 5.26 Hgb (13.5-17.5) g/dL 15.7 Hct (40.0-50.0) % 50.0 MCV (80-95) fL 95 MCH (27.0-33.0) pg 29.8 MCHC (32.0-36.0) % 31.4 L RDW (11.8-14.1) % 14.8 H Plt Count (130-400) 10^3/uL 142 MPV (8.0-11.0) fL 9.5 Immature Gran % 0.0 Neutrophils % 74.0 Band Neutrophils % 9 Lymphocytes % 7.0 Monocytes % 9.0 Eosinophils % 1.0 Basophils % 0.0 Nucleated RBC % (0.0-0.3) % 0.0 Absolute Neutrophils (1.2-6.7) 10^3/uL 6.89 H Absolute Lymphocytes (1.2-3.4) 10^3/uL 0.58 L Absolute Monocytes (0.1-0.8) 10^3/uL 0.75 Absolute Eosinophils (0.0-0.7) 10^3/uL 0.08 Absolute Basophils (0.0-0.2) 10^3/uL 0.00 RBC Morphology Normal Sodium (136-145) mmol/L 139 Potassium (3.5-5.1) mmol/L 4.0 Chloride (98-107) mmol/L 102 Carbon Dioxide (21.0-32.0) mmol/L 33.0 H Anion Gap (3-11) mmol/L 4.0 BUN (7-18) mg/dL 24 H Creatinine (0.70-1.30) mg/dL 1.2 Est GFR (CKD-EPI 2020) (mL/min/1.73m2) 58.89 Glucose (74-106) mg/dL 148 H Calcium (8.5-10.1) mg/dL 8.7 Total Bilirubin (0.2-1.0) mg/dL 1.2 H AST (15-37) U/L 41 H ALT (16-63) U/L 34 Alkaline Phosphatase (46-116) U/L 122 H Troponin I (<or=60) ng/L NT-Pro-B Natriuret Pep (<300) pg/mL Total Protein (6.4-8.2) g/dL 7.5 Albumin (3.4-5.0) g/dL 3.1 L COVID-19 Source Nasopharynx SARS-CoV-2 (PCR) (Negative) Negative Influenza Type A (PCR) (Negative) Negative Influenza Type B (PCR) (Negative) Negative RSV (PCR) (Negative) Negative Range/Units 10/22/21 08:58 WBC (4.4-10.8) 10^3/uL RBC (4.36-5.78) 10^6/uL Hgb (13.5-17.5) g/dL Hct (40.0-50.0) % MCV (80-95) fL MCH (27.0-33.0) pg MCHC (32.0-36.0) % RDW (11.8-14.1) % Plt Count (130-400) 10^3/uL MPV (8.0-11.0) fL Immature Gran % Neutrophils % Band Neutrophils % Lymphocytes % Monocytes % Eosinophils % Basophils % Nucleated RBC % (0.0-0.3) % Absolute Neutrophils (1.2-6.7) 10^3/uL Absolute Lymphocytes (1.2-3.4) 10^3/uL Absolute Monocytes (0.1-0.8) 10^3/uL Absolute Eosinophils (0.0-0.7) 10^3/uL Absolute Basophils (0.0-0.2) 10^3/uL RBC Morphology Sodium (136-145) mmol/L Potassium (3.5-5.1) mmol/L Chloride (98-107) mmol/L Carbon Dioxide (21.0-32.0) mmol/L Anion Gap (3-11) mmol/L BUN (7-18) mg/dL Creatinine (0.70-1.30) mg/dL Est GFR (CKD-EPI 2020) (mL/min/1.73m2) Glucose (74-106) mg/dL Calcium (8.5-10.1) mg/dL Total Bilirubin (0.2-1.0) mg/dL AST (15-37) U/L ALT (16-63) U/L Alkaline Phosphatase (46-116) U/L Troponin I (<or=60) ng/L 73 H* NT-Pro-B Natriuret Pep (<300) pg/mL 1921 H Total Protein (6.4-8.2) g/dL Albumin (3.4-5.0) g/dL COVID-19 Source SARS-CoV-2 (PCR) (Negative) Influenza Type A (PCR) (Negative) Influenza Type B (PCR) (Negative) RSV (PCR) (Negative) HPI General Mode of arrival: wheelchair . Date/Time Provider Initiated Documentation: 10/22/21 08:09 . Limitations to Documentation: no limitations . Information obtained by: patient, RN notes reviewed and old records reviewed . HPI Narrative: 86-year-old male presents to the ER with chief complaint of cough shortness of breath which is worsened over the last couple of days. Patient reports productive cough. He does have some scattered expiratory wheezes bilaterally, he is got some 3+ pitting edema to his bilateral lower extremities which he reports is chronic for him. Denies any chest pain or abdominal pain. He also has a history of chronic diarrhea. Past medical history includes pulmonary fibrosis, hiatal hernia with GERD, anemia, hyperlipidemia, hypothyroidism, aortic valve replacement, hypertension. Related Data Home Medications Medication Instructions Recorded Confirmed omeprazole 20 mg capsule,delayed 20 mg PO DAILY #90 caps 04/16/21 10/22/21 release levothyroxine 100 mcg tablet 100 mcg PO DAILY #90 tabs 04/19/21 10/22/21 prednisone 20 mg tablet 20 mg PO DAILY 06/14/21 10/22/21 sulfamethoxazole 800 1 tab PO .COMPLEX Prophylaxis 06/14/21 10/22/21 mg-trimethoprim 160 mg tablet Oxygen 09/19/21 calcium polycarbophil 625 mg 625 mg PO TID 10/22/21 10/22/21 tablet (FiberCon) tiotropium 2.5 mcg-olodaterol 2.5 2 puff inhalation DAILY 10/22/21 10/22/21 mcg/actuation mist for inhalation (Stiolto Respimat) Previous Rx's Medication Instructions Recorded omeprazole 20 mg capsule,delayed 20 mg PO DAILY #90 caps 04/16/21 release levothyroxine 100 mcg tablet 100 mcg PO DAILY #90 tabs 04/19/21 Allergies Allergy/AdvReac Type Severity Reaction Status Date / Time No Known Allergies Allergy Verified 10/22/21 08:25 General Stated Complaint: RespSymp SHAHRIAR: 2 Review of Systems All systems reviewed & are unremarkable except as noted in HPI and below Cardiovascular Cardiovascular: Reports dyspnea Respiratory Respiratory: Reports cough, Reports excessive phlegm production and Reports dyspnea PFSH All Active Problems (Updated 10/22/21 @ 09:15 by Rosalinda Barrientos NP) Pneumonia (Acute) Pulmonary fibrosis, unspecified (Acute ~07/2021) 08/09/21 Dr Cam Pulmonology, [facility] Chronic diarrhea (Acute ~03/2021) 04/12/21 [facility]. Oscar WANG Sciatica (Acute) Hiatal hernia with GERD without esophagitis (Acute) Carpal tunnel syndrome (Acute) Mixed hyperlipidemia (Acute) Testicular hypofunction (Acute) Anemia (Chronic) Sensorineural hearing loss of both ears (Acute) Hypothyroidism (Chronic) Pulmonary fibrosis (Acute) Aortic valve replaced (Acute ~05/21/16) Hypertension (Chronic) Status post cataract extraction and insertion of intraocular lens of left eye (Chronic 01/05/18) Status post cataract extraction and insertion of intraocular lens of right eye (Chronic 01/05/18) Optic disc cupping (Chronic) Epiretinal membrane (ERM) of left eye (Chronic) Hypertensive retinopathy, grade 2 (Chronic) Medical History Cortical cataract of both eyes Nuclear cataract of both eyes Surgical History H/O colonoscopy (~12/2019) Heart valve replaced (~05/2016) Aortic valve History of lung biopsy (~2005) Family History Father Heart attack Social History Smoking/Tobacco Use Status: Former Tobacco Use Quit Date: 02/17/09 Tobacco: How many years used: 3 Smoking risk assessment performed?: Yes Alcohol Intake: never Drug use: Never Substance use type: does not use Adopted: No Foster care: No Household members: family Housing: house Number of Children: 4 number of grandchildren: 17 Communication Needs: Hard of Hearing Do you need help understanding health information?: Often Sexually active: No What is your relationship status?: Panel score (0-1 are the most socially isolated patients): 0 Ceci/Yazidism: Buddhist Do you feel safe at home: Yes Do you feel safe in your relationship?: Yes Exam Narrative Exam Narrative: Constitutional: Alert and oriented x3. Appears stated age. Normal body habitus. Head: Normocephalic, no trauma. Eyes: Pupils PERRL, Red reflex noted, EOM's intact. Eyelids symmetrical without lesions, discharge, or swelling. ENT: Bilateral TM's WNL, External ear normal to inspection, no mastoid TTP, swelling, or erythema, Nasal turbinates WNL, no nasal discharge. Normal dentition, Posterior pharynx WNL, no exudate. Chest: RRR, Normal S1, S2, distal pulses intact. Resp: Scattered expiratory wheezes bilaterally. Abdomen: Soft, non-distended, Normoactive bowel sounds all 4 quads. Musculoskeletal: 5/5 strength to all four extremities. Skin: No suspicious rashes or lesions. Capillary refill less than 2 sec. bilateral 3+ pitting edema in the lower extremities. Neurologic: Cranial nerves II-XII intact. Alert and oriented x 3. Motor: No deficits noted. Sensory: Intact bilaterally all 4 extremities. Reflexes: DTR's intact bilaterally.. Hematologic/Lymphatic: No ecchymosis, no lymphadenopathy. Course Vital Signs Vital signs: Vital Signs Temperature 37.2 C 10/22/21 08:19 Pulse 108 H 10/22/21 08:19 Respiratory Rate 10/22/21 08:19 Blood Pressure 133/86 10/22/21 08:19 Pulse Oximetry 90 L 10/22/21 08:19 Temperature 37.2 C 10/22/21 08:19 Temperature Source Temporal Artery Scan 10/22/21 08:19 Pulse 108 H 10/22/21 08:19 Respiratory Rate 10/22/21 08:19 Blood Pressure 133/86 10/22/21 08:19 Blood Pressure Position Sitting 10/22/21 08:19 Pulse Oximetry 90 L 10/22/21 08:19 Oxygen Delivery Method Nasal Cannula 10/22/21 08:19 Oxygen Flow Rate 3 10/22/21 08:19 Lab/Test Results Lab/Test Results: 10/22/21 08:24 Blood Blood Culture - Pending 10/22/21 08:24 Blood Blood Culture - Pending
--- NOTE | 2021-10-22 08:52 | DI.RAD_ITS ---
Exam(s) XR PORTABLE CHEST AP EXAM: XR PORTABLE CHEST AP CLINICAL HISTORY: SOB, PUI, Productive cough TECHNIQUE: 2D digital imaging was performed. COMPARISON: CR XR CHEST 2V PA LATERAL from 03/13/2018 FINDINGS: LUNGS: There are underlying fibrotic changes. There are superimposed infiltrates seen in both upper and lower lobes. There is significant left apical pleural thickening. Pleural plaques are are noted at the diaphragm. HEART: Aortic valve prosthesis. Heart size within normal limits. AORTA: Normal. BONES: Unremarkable for age. Soft tissues: Unremarkable. IMPRESSION: Bilateral infiltrates superimposed on chronic fibrotic changes. DATA REPOSITORY: RADIATION DOSE DELIVERED:
[2021-10-22] MEDS: methylPREDNISolone SUCC 125 MG VIAL IVP (09:07)
[2021-10-22] MEDS: Albuterol/Ipratropium 3 ML UPD VIAL UPD ×4 (09:07→23:47)
--- NOTE | 2021-10-22 09:09 | DI.VRAD_ITS ---
PROCEDURE INFORMATION: Exam: XR Chest Exam date and time: 10/22/2021 8:32 AM Age: 86 years old Clinical indication: Shortness of breath TECHNIQUE: Imaging protocol: Radiologic exam of the chest. Views: 1 view. COMPARISON: CR XR CHEST 2V PA LATERAL 03/13/2018 1:58 PM FINDINGS: Lungs: Scattered hazy airspace infiltrates are seen in the mid lungs bilaterally and right lower lung, more pronounced since the prior study. There is redemonstration of bilateral pulmonary fibrosis. Pleural spaces: Calcified pleural plaque is noted at the left lung base. There is a small right pleural effusion or pleural thickening. No evidence of pneumothorax. There is biapical pleural thickening. Heart/Mediastinum: The heart size is borderline mildly enlarged. Bones/joints: Sternotomy wires are again noted. IMPRESSION: 1. Pulmonary fibrotic changes with worsening opacities in the mid lungs and right lower lung concerning for superimposed pneumonia since the prior study. 2. Small right pleural effusion or pleural thickening. Dictated and Authenticated by: Kevin Hooper MD. Ordering:KATARNIA Tellez MD
[2021-10-22 09:12] LABS: Abs Immature Grans 0.04 10^3/uL (0.0-0.06); Absolute Monocyte Count 0.75 10^3/uL (0.1-0.8); HGB 15.7 g/dL (13.5-17.5); MCH 29.8 pg (27.0-33.0); MCHC 31.4 % (32.0-36.0); MCV 95 fL (80-95); MPV 9.5 fL (8.0-11.0); Platelet Count 142 10^3/uL (130-400); RBC 5.26 10^6/uL (4.36-5.78); RDW 14.8 % (11.8-14.1); RDW-SD 52.4 fL
[2021-10-22 09:29] LABS: ALT 34 U/L (16-63); AST 41 U/L (15-37); Albumin 3.1 g/dL (3.4-5.0); Alkaline Phosphatase 122 U/L (46-116); BUN 24 mg/dL (7-18); Bilirubin, Total 1.2 mg/dL (0.2-1.0); CREATININE 1.2 mg/dL (0.70-1.30); Calcium 8.7 mg/dL (8.5-10.1); Chloride 102 mmol/L (98-107); Estimated GFR 58.89 (mL/min/1.73m2); Glucose 148 mg/dL (74-106); Sodium 139 mmol/L (136-145); Total Protein 7.5 g/dL (6.4-8.2)
[2021-10-22] MEDS: Furosemide 40 MG/4 ML VIAL IVP (09:30)
[2021-10-22 09:33] LABS: Absolute Eosinophil Count 0.08 10^3/uL (0.0-0.7); Absolute Lymphocyte Count 0.58 10^3/uL (1.2-3.4); Absolute Neutrophil Count 6.89 10^3/uL (1.2-6.7); Bands % 9; Diff Comment Manual Differential; RBC Morphology Normal
[2021-10-22 09:36] LABS: NT-proBNP 1921 pg/mL (<300)
[2021-10-22 09:38] LABS: Troponin I 73 ng/L (<or=60)
[2021-10-22 09:47] LABS: COVID-19 PCR Negative (Negative); Influenza A PCR Negative (Negative); Influenza B PCR Negative (Negative); RSV PCR Negative (Negative)
[2021-10-22 09:49] LABS: Source Nasopharynx
--- NOTE | 2021-10-22 10:20 | DI.CT_ITS ---
Exam(s) CT CHEST WO EXAM: CT CHEST WO CLINICAL HISTORY: SOB, Hx of pulmonary fibrosis TECHNIQUE: Imaging Protocol: Axial computed tomography images with coronal and sagittal reformatted images were created and reviewed CONTRAST MATERIAL: Noncontrast COMPARISON: CR XR CHEST 2V PA LATERAL from 03/13/2018 CR,XR XR PORTABLE CHEST AP from 10/22/2021 FINDINGS: Tracheobronchial tree: Traction bronchiectasis. No mucous plugging. Mediastinum and Celeste: Prominent pulmonary arteries. Dilated pulmonary arteries consistent with pulmo nary hypertension. Pulmonary parenchyma: Severe fibrotic changes with honeycombing bilaterally, greater peripherally as well as traction bronchiectasis. Focal areas of scarring peripherally in the upper lobes. Nodules s een in the bilateral lower lobes, right greater than left within cystic spaces could represent fungus balls. The largest measures 2.1 cm. Pleura: No effusion or pneumothorax. Calcified pleural plaques bilaterally. Heart: The left atrium is mildly dilated. coronary artery calcifications are seen. Aorta: Thoracic aorta non-dilated. Atherosclerotic changes. Aortic valve prosthesis. Upper abdomen: Moderate size hiatal hernia. Lymph nodes: Mildly prominent. Could be reactive. Bones: Sternal wires. Degenerative changes in the thoracic spine. Mild midthoracic and lower thorac ic compression fractures. Tubes, Catheters, and Lines: None Soft tissues: Unremarkable. IMPRESSION: Changes of severe pulmonary fibrosis with traction bronchiectasis. The cystic spaces are greatest in the lower lobes where there are multiple nodules seen, greatest in the right lower lobe which could resent aspergillomas. RADIATION DOSE DELIVERED: 462.04mGy.cm Total DLP DATA REPOSITORY: All CT scans at this facility are submitted to the National Radiology Data Registry (NRDR) Dose Index Registry (DIR) with the [employer] (A[employer]). RADIATION OPTIMIZATION: All CT scans at this facility use at least one of these dose optimization te chniques: automated exposure control; mA and/or kV adjustment per patient size (includes targeted exa ms where dose is matched to clinical indication); or iterative reconstruction.
[2021-10-22] MEDS: AZITHROMYCIN 500 MG in Normal Saline 250 ML 250 MG IVPB (10:38)
--- NOTE | 2021-10-22 10:53 | DI.VRAD_ITS ---
PROCEDURE INFORMATION: Exam: CT Chest Without Contrast; Diagnostic Exam date and time: 10/22/2021 10:15 AM Age: 86 years old Clinical indication: Shortness of breath; Patient HX: HX of pulmonary fibrosis TECHNIQUE: Imaging protocol: Diagnostic computed tomography of the chest without contrast. 3D rendering (Not supervised by radiologist): MIP and/or 3D reconstructed images were created by the technologist. Radiation optimization: All CT scans at this facility use at least one of these dose optimization techniques: automated exposure control; mA and/or kV adjustment per patient size (includes targeted exams where dose is matched to clinical indication); or iterative reconstruction. COMPARISON: XR PORTABLE CHEST AP 10/22/2021 8:32 AM FINDINGS: Lungs: Subpleural and basilar predominant honeycombing throughout both lungs. Reticular abnormalities and traction bronchiectasis. Several solid opacities identified within the areas of honeycombing within the lung base with index 2.1 x 1.9 cm opacity noted on series 3, image 439. Findings are suggestive of fungal balls. Pleural spaces: Unremarkable. No pneumothorax. No pleural effusion. Heart: Coronary artery calcifications present. The heart appears borderline enlarged. No pericardial effusion. Lymph nodes: Prominent mediastinal lymph nodes. Index 1.3 x 1 cm precarinal node noted on series 3, image 215. Evaluation for hilar adenopathy is limited in the absence of IV contrast. No axillary adenopathy. Vasculature: Moderate atherosclerotic calcification of the aorta and its branches. Dilated pulmonary arteries with the main pulmonary artery measuring 3.6 cm in diameter. Diaphragm: Large hiatal hernia. Bones/joints: Mild compression deformities of T8 and L1. Soft tissues: Unremarkable. IMPRESSION: 1. Interstitial lung disease with usual interstitial pneumonitis (UIP) pattern. Differential diagnosis for etiology includes idiopathic pulmonary fibrosis or secondary underlying systemic diseases such as connective tissue disease. 2. Scattered solid opacities identified within areas of honeycombing in the lung bases suggestive of fungal balls, possibly aspergillomas. 3. Nonspecific prominent mediastinal lymph nodes. 4. Mild compression deformities of T8 and L1. 5. Dilated pulmonary arteries which can be seen in the setting of pulmonary hypertension. Dictated and Authenticated by: Abe Sanchez MD. Ordering:KATARINA Tellez MD
[2021-10-22 12:22] LABS: Troponin I 72 ng/L (<or=60)
[2021-10-22 12:27] LABS: Lab Add On Test DONE
[2021-10-22 13:00] LABS: Procalcitonin 0.1 ng/mL
--- NOTE | 2021-10-22 13:08 | HPE_ITS ---
Date of service: 10/22/21 Time of Service: 13:09 Assessment and Plan Assessment and plan (1) Pneumonia: Status: Acute Assessment and plan: while procalcitonin is negative, the patient appears to have purulent sputum and findings of PNA (possibly fungal) on CT. Before receiving antifungal medications, he is already feeling better. Will hold off on starting voriconazole until evaluation by pulmonology tomorrow. Will continue ceftriaxone initiated in the ED, substitute azithromycin with doxycycline (the patient had previously had diarrhea on azithromycin). Increase prednisone to 40 mg PO daily (normally on 20 mg PO daily). Will check urine for strep and legionella, sputum for mycoplasma, as well as obtain Fungitell, aspergillus PCR, sputum culture. Encourage pulmonary toilet. 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 Echo in 07/08 w/ preserved LVEF and well functioning bioprosthetic aortic valve. Will need a repeat echo, but not available at our facility next week. Could be done as outpatient. keep on tele. S/p furosemide 40 mg IV x 1 in the ED - will monitor UOP. (4) Chronic respiratory failure with hypoxia: Status: Chronic Assessment and plan: As above (5) Pulmonary fibrosis, unspecified: Status: Chronic Assessment and plan: As above Increase dose of prednisone to 40 mg PO daily. (6) Hypothyroidism: Status: Chronic Assessment and plan: Check TSH. Continue levothyroxine at outpatient dose. (7) DVT prophylaxis: Status: Acute Assessment and plan: SC enoxaparin (8) Discharge planning issues: Status: Acute Assessment and plan: DNR/DNI as per my conversation with the patient witnessed by his daughter History of Present Illness History of Present Illness Chief Complaint: shortness of breath and productive cough Narrative: Mr Galindo is an 86 year old male with PMHx of chronic hypoxic respiratory failure due to pulmonary fibrosis, normally on 3L of O2 prn, as well as h/o bioprosthetic AVR ([facility] [place]), hypothyroidism, GERD, who presented to [facility] ED today c/o shortness of breath for about 24-48 hrs, accompanied by productive cough with creamy/yellow sputum. He denies fevers/chills. A couple of children residing at his house were sick about a week ago. 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 He notes that his lower extremities became swollen about a year ago. He does not think that he has had an ultrasound of his legs. He did have an echo at [facility] [place] in 07/08, showing LVEF of 70-75% without segmental wall motion abnormalities, RV was normal in size. RV function was normal. His bioprosthetic aortic valve appeared to be functioning normally. There was no evidence of pulmonary hypertension on that echo. In the ED, he was noted to require his baseline 3L of O2 by [place]. He did appear tachypneic and tachycardic (though HRs of 180s recorded in the ED were an error - T waves were being interpreted as QRSs by the software). He has been in sinus arrhythmia. He denied chest pain. He received solumedrol, empiric azithromycin/ceftriaxone, and bronchodilators with significant improvement in his sx. He also received furosemide 40 mg IV x 1. His noncontrast CT of the c hest is c/w interstitial lung disease as well as scattered pulmonary opacities within areas of honeycombing with possibility of fungal balls. Dilated pulmonary arteries were also noted. [facility]ista dmission was requested. The patient does see pulmonology at [facility]. Review of Systems All systems reviewed & are unremarkable except as noted in HPI and below PFSH All Active Problems (Updated 10/22/21 @ 15:32 by Autumn Keller MD) Edema of both lower extremities (Acute) Discharge planning issues (Acute) DVT prophylaxis (Acute) Chronic respiratory failure with hypoxia (Chronic) Pneumonia (Acute) Pulmonary fibrosis, unspecified (Chronic ~07/2021) 08/09/21 Dr Cam Pulmonology, [facility] Chronic diarrhea (Acute ~03/2021) 04/12/21 [facility]. Oscar WANG Sciatica (Acute) Hiatal hernia with GERD without esophagitis (Acute) Carpal tunnel syndrome (Acute) Mixed hyperlipidemia (Acute) Testicular hypofunction (Acute) Anemia (Chronic) Sensorineural hearing loss of both ears (Acute) Hypothyroidism (Chronic) Pulmonary fibrosis (Acute) Aortic valve replaced (Acute ~05/21/16) Hypertension (Chronic) Status post cataract extraction and insertion of intraocular lens of left eye (Chronic 01/05/18) Status post cataract extraction and insertion of intraocular lens of right eye (Chronic 01/05/18) Optic disc cupping (Chronic) Epiretinal membrane (ERM) of left eye (Chronic) Hypertensive retinopathy, grade 2 (Chronic) Medical History (Updated 10/22/21 @ 15:32 by Autumn Keller MD) Cortical cataract of both eyes Malaria Nuclear cataract of both eyes Surgical History (Updated 10/22/21 @ 15:09 by Autumn Keller MD) H/O colonoscopy (~12/2019) H/O esophagogastroduodenoscopy Heart valve replaced (~05/2016) Aortic valve History of lung biopsy (~2005) Family History (Updated 10/22/21 @ 15:10 by Autumn Keller MD) Father Heart attack Mother Heart attack Daughter Cancer Hodgkin's Lymphoma Grandson Cancer synovial sarcoma Social History (Updated 10/22/21 @ 15:11 by Autumn Keller MD) Smoking/Tobacco Use Status: Former Tobacco Use Quit Date: 02/17/09 Tobacco: How many years used: 3 Smoking risk assessment performed?: Yes Alcohol Intake: never Drug use: Never Substance use type: does not use Adopted: No Foster care: No Household members: family Housing: house Number of Children: 4 number of grandchildren: 17 Communication Needs: Hard of Hearing Do you need help understanding health information?: Often Sexually active: No What is your relationship status?: Panel score (0-1 are the most socially isolated patients): 0 Ceci/Zoroastrianism: Tenriism Do you feel safe at home: Yes Do you feel safe in your relationship?: Yes Meds Allergies and Home Medications Allergies Allergy/AdvReac Type Severity Reaction Status Date / Time No Known Allergies Allergy Verified 10/22/21 08:25 Home Medications Medication Instructions Recorded Confirmed Type omeprazole 20 mg capsule,delayed 20 mg PO DAILY #90 caps 04/16/21 10/22/21 Rx release levothyroxine 100 mcg tablet 100 mcg PO DAILY #90 tabs 04/19/21 10/22/21 Rx prednisone 20 mg tablet 20 mg PO DAILY 06/14/21 10/22/21 History sulfamethoxazole 800 1 tab PO .COMPLEX Prophylaxis 06/14/21 10/22/21 History mg-trimethoprim 160 mg tablet Oxygen 09/19/21 History calcium polycarbophil 625 mg 625 mg PO DIRECTED 10/22/21 10/22/21 History tablet (FiberCon) guaifenesin 600 mg tablet, 600 mg PO BID PRN PRN Cough 10/22/21 10/22/21 History extended release 12 hr (Mucinex) tiotropium 2.5 mcg-olodaterol 2.5 2 puff inhalation DAILY 10/22/21 10/22/21 History mcg/actuation mist for inhalation (Stiolto Respimat) Exam Narrative Exam Narrative: General: Very pleasant elderly male who is not having respiratory distress at the time of my exam, receiving nebulizer treatment, A&Ox3, NAD Neurological: A&Ox3, no focal deficits Psychiatric: Appropriate speech pattern/content Skin: Visible skin intact HEENT: Atraumatic, normocephalic, EOMI, dry MM, clear oropharynx, no submandibular or cervical lymphadenopathy, no goiter, + distended neck veins Cardiovascular: RRR with occasional pauses, no m/r/g Lungs: crackles about 1/2 up of B lung cooper Gastrointestinal: soft, nontender, nondistended Genitourinary: deferred Extremities: 2+ BLE pitting edema up to the knees. Results Imaging Additional studies: CXR: Bilateral infiltrates superimposed on chronic fibrotic changes. CT chest w/o contrast: 1. Interstitial lung disease with usual interstitial pneumonitis (UIP) pattern. Differential diagnosis for etiology includes idiopathic pulmonary fibrosis or secondary underlying systemic diseases such as connective tissue disease. 2. Scattered solid opacities identified within areas of honeycombing in the lung bases suggestive of fungal balls, possibly aspergillomas. 3. Nonspecific prominent mediastinal lymph nodes. 4. Mild compression deformities of T8 and L1. 5. Dilated pulmonary arteries which can be seen in the setting of pulmonary hypertension. EKG: ST, RBBB, HR 109, no acute ischemia Labs Result diagrams: 10/22/21 08:54 10/22/21 08:54 Labs: Laboratory Results - last 24 hr 10/22/21 10/22/21 10/22/21 08:54 08:54 08:58 WBC 8.30 RBC 5.26 Hgb 15.7 Hct 50.0 MCV 95 MCH 29.8 MCHC 31.4 L RDW 14.8 H Plt Count 142 MPV 9.5 Immature Gran % 0.0 Neutrophils % 74.0 Band Neutrophils % 9 Lymphocytes % 7.0 Monocytes % 9.0 Eosinophils % 1.0 Basophils % 0.0 Nucleated RBC % 0.0 Absolute Neutrophils 6.89 H Absolute Lymphocytes 0.58 L Absolute Monocytes 0.75 Absolute Eosinophils 0.08 Absolute Basophils 0.00 RBC Morphology Normal Sodium 139 Potassium 4.0 Chloride 102 Carbon Dioxide 33.0 H Anion Gap 4.0 BUN 24 H Creatinine 1.2 Est GFR (CKD-EPI 2020) 58.89 Glucose 148 H Calcium 8.7 Total Bilirubin 1.2 H AST 41 H ALT 34 Alkaline Phosphatase 122 H Troponin I NT-Pro-B Natriuret Pep Total Protein 7.5 Albumin 3.1 L Procalcitonin COVID-19 Source Nasopharynx SARS-CoV-2 (PCR) Negative Influenza Type A (PCR) Negative Influenza Type B (PCR) Negative RSV (PCR) Negative Add-On Test Request 10/22/21 10/22/21 10/22/21 08:58 11:55 11:55 WBC RBC Hgb Hct MCV MCH MCHC RDW Plt Count MPV Immature Gran % Neutrophils % Band Neutrophils % Lymphocytes % Monocytes % Eosinophils % Basophils % Nucleated RBC % Absolute Neutrophils Absolute Lymphocytes Absolute Monocytes Absolute Eosinophils Absolute Basophils RBC Morphology Sodium Potassium Chloride Carbon Dioxide Anion Gap BUN Creatinine Est GFR (CKD-EPI 2020) Glucose Calcium Total Bilirubin AST ALT Alkaline Phosphatase Troponin I 73 H* 72 H* NT-Pro-B Natriuret Pep 1921 H Total Protein Albumin Procalcitonin COVID-19 Source SARS-CoV-2 (PCR) Influenza Type A (PCR) Influenza Type B (PCR) RSV (PCR) Add-On Test Request DONE 10/22/21 11:55 WBC RBC Hgb Hct MCV MCH MCHC RDW Plt Count MPV Immature Gran % Neutrophils % Band Neutrophils % Lymphocytes % Monocytes % Eosinophils % Basophils % Nucleated RBC % Absolute Neutrophils Absolute Lymphocytes Absolute Monocytes Absolute Eosinophils Absolute Basophils RBC Morphology Sodium Potassium Chloride Carbon Dioxide Anion Gap BUN Creatinine Est GFR (CKD-EPI 2020) Glucose Calcium Total Bilirubin AST ALT Alkaline Phosphatase Troponin I NT-Pro-B Natriuret Pep Total Protein Albumin Procalcitonin 0.1 COVID-19 Source SARS-CoV-2 (PCR) Influenza Type A (PCR) Influenza Type B (PCR) RSV (PCR) Add-On Test Request Last Vital Signs Temp 37.2 C 10/22/21 08:19 Pulse 96 H 10/22/21 12:45 Resp 25 H 10/22/21 12:45 BP 103/68 10/22/21 12:45 Pulse Ox 97 10/22/21 11:31
[2021-10-22] MEDS: Enoxaparin 40 MG/0.4 ML SYR SC (14:15)
[2021-10-22] MEDS: Normal Saline Flush 10 ML SYR IVP ×2 (15:25→20:56)
[2021-10-22] MEDS: Normal Saline 500 ML 30 ML IV (15:25)
[2021-10-22] MEDS: guaiFENesin 600 MG TABCR PO (20:56)
[2021-10-23] VITALS (8 sets, daily range): BP systolic 112–141; BP diastolic 63–91; PULSE 80–100; RESP 15–20; TEMP 36.5–36.8; O2SAT 94–98
--- NOTE | 2021-10-23 | DI.US_ITS ---
Exam(s) US EXTREMITY VENOUS BI EXAM: US EXTREMITY VENOUS BI CLINICAL HISTORY: edema BLEs, rule out DVT. TECHNIQUE: Bilateral lower extremity venous ultrasound performed using grayscale, color-flow, and sp ectral Doppler analysis. COMPARISON: No exams were available for comparison FINDINGS: The bilateral common femoral, femoral and popliteal veins demonstrate normal compressibility, augment ation, and color Doppler. The posterior tibial veins are patent. The saphenofemoral junctions are unr emarkable. There is no evidence of a Coughlin's cyst. Bilateral lower extremity edema. IMPRESSION: 1. No evidence of a right lower extremity DVT. 2. No evidence of a left lower extremity DVT. DATA REPOSITORY:
[2021-10-23] MEDS: Levothyroxine 100 MCG TAB PO (05:32)
[2021-10-23] MEDS: Albuterol/Ipratropium 3 ML UPD VIAL UPD ×3 (05:32→23:53)
[2021-10-23 06:30] LABS: HCT 43.7 % (40.0-50.0); HGB 13.8 g/dL (13.5-17.5); MCH 29.7 pg (27.0-33.0); MCHC 31.6 % (32.0-36.0); MCV 94 fL (80-95); MPV 10.7 fL (8.0-11.0); Platelet Count 148 10^3/uL (130-400); RBC 4.65 10^6/uL (4.36-5.78); RDW-SD 51.9 fL; WBC 8.67 10^3/uL (4.4-10.8)
[2021-10-23 06:51] LABS: Anion Gap 7.9 mmol/L (3-11); BUN 33 mg/dL (7-18); CO2 28.1 mmol/L (21.0-32.0); CREATININE 1.3 mg/dL (0.70-1.30); Calcium 8.5 mg/dL (8.5-10.1); Chloride 103 mmol/L (98-107); Glucose 167 mg/dL (74-106); Magnesium 1.8 mg/dL (1.8-2.4); PHOSPHORUS 3.4 mg/dL (2.6-4.7); Potassium 3.9 mmol/L (3.5-5.1); Sodium 139 mmol/L (136-145); TSH 0.23 uIU/mL (0.36-3.74)
[2021-10-23 07:20] LABS: Absolute Lymphocyte Count 0.35 10^3/uL (1.2-3.4); Absolute Monocyte Count 0.35 10^3/uL (0.1-0.8); Absolute Neutrophil Count 7.98 10^3/uL (1.2-6.7); Bands % 2; Diff Comment Manual Differential; RBC Morphology Normal
[2021-10-23] MEDS: DOXYCYCLINE 100 MG in Normal Saline 100 ML IVPB ×2 (08:16→20:24)
[2021-10-23] MEDS: cefTRIAXone 2 GM/50 ML BAG IVPB (08:16)
[2021-10-23] MEDS: predniSONE 20 MG TAB 40 MG PO (08:17)
[2021-10-23] MEDS: Omeprazole 20 MG CAPCR PO (08:17)
[2021-10-23] MEDS: guaiFENesin 600 MG TABCR PO ×2 (08:17→20:25)
[2021-10-23] MEDS: Tiotropium/Olodaterol 10 PUFF INHALER 2 PUFF IH (09:05)
[2021-10-23] MEDS: Sulfameth/Trimeth DS TAB 1 TAB PO (09:47)
--- NOTE | 2021-10-23 14:56 | W.PM.PROGNOT ---
Date of Service Date of service: 10/23/21 Time of Service: 14:56 Assessment and Plan Assessment and plan (1) Pneumonia: Status: Acute Assessment and plan: Present on admission, improving. Discussed with Dr Segura: will continue current abx, steroids, nebs. Will not start antifungals at this time. Will need repeat imaging to ensure resolution of disease and will need fungal studies follow up. No indication for bronchoscopy at this time. Check exercise oximetry. Encourage pulmonary toilet. 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 Obtaining POCUS echo today. Echo in 07/08 w/ preserved LVEF and well functioning bioprosthetic aortic valve. Will need a repeat formal echo, but not available at our facility next week. Could be done as outpatient. keep on tele. S/p furosemide 40 mg IV x 1 in the ED, appears near euvolemic at this time. (4) Chronic respiratory failure with hypoxia: Status: Chronic Assessment and plan: As above On 2L of O2 by [place] at this time, which is actually better than his baseline of 3L. Will check ambulatory pulse ox. (5) Pulmonary fibrosis, unspecified: Status: Chronic Assessment and plan: As above Continue prednisone 40 mg daily. Will need a taper on d/c. Follow up with pulmonology as outpatient. (6) Hypothyroidism: Status: Chronic Assessment and plan: TSH low - effectively hyperthyroid. WIll hold synthroid and have TSH rechecked in 2 weeks. (7) DVT prophylaxis: Status: Acute Assessment and plan: SC enoxaparin (8) Discharge planning issues: Status: Acute Assessment and plan: DNR/DNI as per my conversation with the patient witnessed by his daughter Anticipate discharge home tomorrow. Subjective Subjective Interval history since last seen: Ashly feels quite a bit better today. He is less short of breath. No dizziness, chest pain, nausea. Evaluated by pulmonology: will not require bronchoscopy or antifungal coverage since he is doing so much better. Exam Narrative Exam Narrative: General: A&Ox3, NAD, sitting comfortably in a chair, no dyspnea/tachypnea, on 2L of O2 by [place] HEENT: EOMI, MMM Cardiovascular: RRR with occasional pauses, no m/r/g Lungs: crackles about 1/2 up of B lung cooper Gastrointestinal: soft, nontender, nondistended Genitourinary: deferred Extremities: 2+ BLE pitting edema up to the knees. Objective Last Vital Signs Temp 36.8 C 10/23/21 09:38 Pulse 100 H 10/23/21 09:38 Resp 18 10/23/21 09:38 BP 122/69 10/23/21 09:38 Pulse Ox 96 10/23/21 09:38 Laboratory Results - last 24 hr 10/23/21 10/23/21 05:28 05:28 WBC 8.67 RBC 4.65 Hgb 13.8 Hct 43.7 MCV 94 MCH 29.7 MCHC 31.6 L RDW 15.0 H Plt Count 148 MPV 10.7 Immature Gran % 0.0 Neutrophils % 90.0 Band Neutrophils % 2 Lymphocytes % 4.0 Monocytes % 4.0 Eosinophils % 0.0 Basophils % 0.0 Nucleated RBC % 0.0 Absolute Neutrophils 7.98 H Absolute Lymphocytes 0.35 L Absolute Monocytes 0.35 Absolute Eosinophils 0.00 Absolute Basophils 0.00 RBC Morphology Normal Sodium 139 Potassium 3.9 Chloride 103 Carbon Dioxide 28.1 Anion Gap 7.9 BUN 33 H Creatinine 1.3 Est GFR (CKD-EPI 2020) 53.50 Glucose 167 H Calcium 8.5 Phosphorus 3.4 Magnesium 1.8 TSH 0.23 L
[2021-10-23] MEDS: Enoxaparin 40 MG/0.4 ML SYR SC (15:37)
--- NOTE | 2021-10-23 16:12 | PDOC.CMIN ---
- If Service Date Differs Date of service: 10/23/21 Time of Service: 16:12 Care Management Initial Assess REASON FOR HOSPITALIZATION:: Pneumonia, ILD, CHF, R/O aspergiollomas PAST MEDICAL HISTORY/PAST SURGICAL HISTORY:: Medical History (Updated 10/22/21 @ 15:32 by Autumn Keller MD). Cortical cataract of both eyes. Malaria. Nuclear cataract of both eyes. Surgical History (Updated 10/22/21 @ 15:09 by Autumn Keller MD). H/O colonoscopy (~12/2019). H/O esophagogastroduodenoscopy. Heart valve replaced (~05/2016). Aortic valve. History of lung biopsy (~2005) PREVIOUS FUNCTIONAL STATUS/SOCIAL/FAMILY SUPPORTS:: Oniel is and resides in [place], alone, though his daughter lives next door. He is independent at baseline in the community. CURRENT FUNCTIONAL STATUS:: Oniel was lying in bed, his daughter in a chair at his bedside. Dr. Garza was present, preparing for a point of care ultrasound. CM continues to follow. Has patient been provided with info about the portal/API?: Yes Did the patient sign up for the portal?: Yes CODE STATUS:: DNR/DNI INSURANCE COVERAGE / FINANCIAL ISSUES:: Medicare. AARP CURRENT HOME/COMMUNITY SERVICES/EQUIPMENT:: Baseline 3L O2. PRIMARY CARE PHYSICIAN:: Josie Singh POTENTIAL DISCHARGE NEEDS:: Follow up appointments. PATIENT/FAMILY EDUCATION NEEDS:: Review discharge instructions, discuss Ask Me Three. ANTICIPATED BARRIERS TO DISCHARGE:: None identified. TRANSPORTATION:: Via private vehicle with daughter. PLAN:: Oniel continues to be closely monitored and treated; CM continues to follow. No additional services anticipated at this time, Oniel will return home, follow up with outpatient providers and transport via private vehicle with his daughter.
--- NOTE | 2021-10-23 17:26 | W.PULMCON ---
General Date Of Service Date of service: 10/23/21 Time of Service: 12:15 Reason for Consult: Abnormal chest CT Assessment and Plan Assessment and plan (1) Hypersensitivity pneumonitis: Status: Acute (2) Pneumonia: Status: Acute (3) Chronic respiratory failure with hypoxia: Status: Chronic Assessment and plan: This is an 86 yo man with Grant's Lung chronic hypersensitivity pneumonitis and presumed progression on chronic steroids who is admitted for a pneumonia. He feels remarkably better with antibiotic treatment. I do not think that he does have a fungal infection as with the increase in steroid dosing he would have most certainly worsened. It is possible this is a fibrosis ball as can be seen in these scenarios. Clinically he has a pneumonia as he has improved with treatment. I would continue with a 7 day total course to cover CAP. I do not see a role for the chronic steroids as this increases his risks for infection. He may be eligible for OFEV, although we will ahve to discuss this further as an outpatient as he does have chronic diarrhea and we will have to see if can tolerate the OFEV as diarrhea is the most common side effect. I will order of him to have both PFT's and a repeat chest CT prior to our visit so I can have a better grasp of the extent of his pulmonary disease. Per his family and himself he is at his baseline and likely ready for discharge tomorrow. Pneumonia - can be discharged on Levaquin (total 7 day course) - I will follow up on serologies Grant's Lung - I will order chest CT and PFT's to be done prior to our follow up - wean prednisone: 40mg for 3 more days, 30mg for 3 days, 20mg for 3 days, 10mg until his visit with me - he can stop Bactrim when below 20mg of prednisone - he would like to transition care to my clinic out of ease - an appointment as been arranged with me in 6 weeks time Chronic hypoxic respiratory failure - 3LPM at night and as needed during the day - O2 sats >88% are ok History of Present Illness Narrative: This is an 86 yo man with a history of Grant's lung with progressive fibrosis on chronic prednisone who is admitted for a pneumonia. 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 Aldana) to increase his prednisone from 10mg (chronically) to 20mg. He tells me that he did not notice any improvements in his breathing with this increase and cannot really say if the prednisone affects his breathing much at all chronically. He has not had a chest CT or PFT's in a very long time, so I am unable to comment on what his baseline lung function or degree of fibrotic disease is. Per the patient he should be on 3LPM with sleep and exertion. He tells me that typically his oxygen is low 90's even without oxygen as long as he takes him time with tasks. 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 He has never been tried on anti-fibrotic therapy. They are unsure what kind of work up has been completed i nthe past but know that he has never undergone bronchoscopy. I was consulted due to an abnormal chest CT and concern for a possible fungus ball. His chest CT shows significant fibrotic lung disease that greatly affects the upper lobes, consistent with a hypersensitivity process. There are consolidations that are present within these areas of fibrosis which may represent infection, but may also be fibrosis balls. There is certainly more typical appearing pneumonia in the RLL. He has several serologies, including fungal serologies pending. Today he states that he is feeling 300% better than from hen he first came in. He has a good appetite, is breathing better and feels as though he is ready and able to go home. Review of Systems All systems reviewed & are unremarkable except as noted in HPI and below PFSH All Active Problems (Updated 10/23/21 @ 17:39 by Marla Segura MD) Hypersensitivity pneumonitis (Acute) Edema of both lower extremities (Acute) Discharge planning issues (Acute) DVT prophylaxis (Acute) Chronic respiratory failure with hypoxia (Chronic) Pneumonia (Acute) Pulmonary fibrosis, unspecified (Chronic ~07/2021) 08/09/21 Dr Cam Pulmonology, [facility] Chronic diarrhea (Acute ~03/2021) 04/12/21 [facility]. Oscar WANG Sciatica (Acute) Hiatal hernia with GERD without esophagitis (Acute) Carpal tunnel syndrome (Acute) Mixed hyperlipidemia (Acute) Testicular hypofunction (Acute) Anemia (Chronic) Sensorineural hearing loss of both ears (Acute) Hypothyroidism (Chronic) Pulmonary fibrosis (Acute) Aortic valve replaced (Acute ~05/21/16) Hypertension (Chronic) Status post cataract extraction and insertion of intraocular lens of left eye (Chronic 01/05/18) Status post cataract extraction and insertion of intraocular lens of right eye (Chronic 01/05/18) Optic disc cupping (Chronic) Epiretinal membrane (ERM) of left eye (Chronic) Hypertensive retinopathy, grade 2 (Chronic) Medical History (Updated 10/23/21 @ 17:39 by Marla Segura MD) Cortical cataract of both eyes Malaria Nuclear cataract of both eyes Surgical History (Updated 10/22/21 @ 15:09 by Autumn Keller MD) H/O colonoscopy (~12/2019) H/O esophagogastroduodenoscopy Heart valve replaced (~05/2016) Aortic valve History of lung biopsy (~2005) Family History (Updated 10/22/21 @ 15:10 by Autumn Keller MD) Father Heart attack Mother Heart attack Daughter Cancer Hodgkin's Lymphoma Grandson Cancer synovial sarcoma Social History (Updated 10/22/21 @ 15:11 by Autumn Keller MD) Smoking/Tobacco Use Status: Former Tobacco Use Quit Date: 02/17/09 Tobacco: How many years used: 3 Smoking risk assessment performed?: Yes Alcohol Intake: never Drug use: Never Substance use type: does not use Adopted: No Foster care: No Household members: family Housing: house Number of Children: 4 number of grandchildren: 17 Communication Needs: Hard of Hearing Do you need help understanding health information?: Often Sexually active: No What is your relationship status?: Panel score (0-1 are the most socially isolated patients): 0 Ceci/Christian: Confucianism Do you feel safe at home: Yes Do you feel safe in your relationship?: Yes Visit Medication and Allergies Active Medications Generic Name Dose Route Start Last Admin Trade Name Freq PRN Reason Stop Dose Admin Acetaminophen 0 mg 10/22/21 12:29 Acetaminophen 325 Mg Tab PO Q4H PRN PRN Al Hydrox/Mg Hydrox/Simethicone 30 ml 10/22/21 12:29 Mylanta Suspension 30 Ml Cup PO Q2H PRN PRN Albuterol Sulfate 2.5 mg 10/22/21 12:29 Albuterol 2.5 Mg/3 Ml Inh Soln Vial UPD Q2H PRN PRN Albuterol/Ipratropium 3 ml 10/22/21 12:00 10/23/21 14:04 Albuterol/Ipratropium 3 Ml Upd Vial UPD Not Given Q6H [facility] Calcium Polycarbophil 625 mg 10/24/21 08:30 Calcium Polycarbophil 625 Mg Tab PO [id number] MARIBEL Device 1 each 10/22/21 15:00 Inhaler, Assist Device MC DIRECTED [facility] Dimethicone/Zinc Oxide 0 gm 10/22/21 12:23 Chantal Protect Cream 142 Gm Tube TP PRN PRN Docusate Sodium 100 mg 10/22/21 12:29 Docusate Sodium 100 Mg Cap PO TID PRN PRN Enoxaparin Sodium 40 mg 10/22/21 14:00 10/23/21 15:37 Enoxaparin 40 Mg/0.4 Ml Syr SC 40 mg Q24H MARIBEL Administration Guaifenesin 600 mg 10/22/21 20:00 10/23/21 08:17 Guaifenesin 600 Mg Tabcr PO 600 mg BID MARIBEL Administration Sodium Chloride 500 mls @ 0 mls/hr 10/22/21 12:29 10/22/21 15:25 Saline 500ml Bag IV 30 mls/hr PRN PRN Administration As Directed Doxycycline Hyclate 100 mg/ 100 mls @ 100 mls/hr 10/23/21 08:00 10/23/21 09:47 Sodium Chloride IVPB Infused Q12H [facility] Infusion Ceftriaxone Sodium/Dextrose 2 gm in 50 mls @ 100 mls/hr 10/23/21 08:30 10/23/21 08:16 Rocephin IVPB 100 mls/hr DAILY [facility] Administration IV Miscellaneous Supplies 1 each 10/22/21 12:30 Iv Access IV DIRECTED [facility] Lactobacillus Acidophilus/Casei 1 cap 10/23/21 08:30 10/23/21 08:17 L. Acidophilus, Casei, Rhamnosus Cap PO 1 cap DAILY MARIBEL Administration Magnesium Hydroxide 30 ml 10/22/21 12:29 Milk Of Magnesia 30 Ml Cup PO DAILY PRN PRN Omeprazole 20 mg 10/23/21 07:30 10/23/21 08:17 Omeprazole 20 Mg Capcr PO 20 mg DAILY@0730 MARIBEL Administration Prednisone 40 mg 10/23/21 08:30 10/23/21 08:17 Prednisone 20 Mg Tab PO 40 mg DAILY MARIBEL Administration Sodium Chloride 0 ml 10/22/21 12:29 10/22/21 20:56 Normal Saline Flush 10 Ml Syr IVP 10 ml PRN PRN Administration Tiotropium [place]/Olodaterol 2 puff 10/23/21 08:30 10/23/21 09:05 Tiotropium/Olodaterol 10 Puff Inhaler IH 2 inh DAILY MARIBEL Administration Trimethoprim/Sulfamethoxazole 1 tab 10/23/21 08:30 10/23/21 09:47 Sulfameth/Trimeth Ds Tab PO 1 tab TuThSa@0830 MARIBEL Administration Allergies No Known Allergies Allergy (Verified 10/22/21 08:25) Exam Narrative Exam Narrative: Gen: NAD, normal respiratory effort, well-nourished HENT: PERRL, nasal turbinates normal without erythema or inflammation, moist oral mucosa, Mallampati 2, No LAD or JVD Chest: No respiratory distress, normal appearance of chest, clear to auscultation bilaterally, left crackles, nowheezes, normal inspiratory effort, good air movement Heart: regular rate and rhythym, no murmurs, rubs or gallops Abdomen: Non-distended, soft, non tender Extremities: No clubbing, edema, cyanosis, rashes Neuro: AAOx3 , non focal Psych: cooperative, appropriate mental affect Results Last Vital Signs Temp 36.6 C 10/23/21 15:31 Pulse 80 10/23/21 15:31 Resp 20 10/23/21 15:31 BP 141/80 H 10/23/21 15:31 Pulse Ox 96 10/23/21 15:31 Labs Result diagrams: 10/23/21 05:28 10/23/21 05:28 Labs: Laboratory Results - last 24 hr 10/23/21 10/23/21 05:28 05:28 WBC 8.67 RBC 4.65 Hgb 13.8 Hct 43.7 MCV 94 MCH 29.7 MCHC 31.6 L RDW 15.0 H Plt Count 148 MPV 10.7 Immature Gran % 0.0 Neutrophils % 90.0 Band Neutrophils % 2 Lymphocytes % 4.0 Monocytes % 4.0 Eosinophils % 0.0 Basophils % 0.0 Nucleated RBC % 0.0 Absolute Neutrophils 7.98 H Absolute Lymphocytes 0.35 L Absolute Monocytes 0.35 Absolute Eosinophils 0.00 Absolute Basophils 0.00 RBC Morphology Normal Sodium 139 Potassium 3.9 Chloride 103 Carbon Dioxide 28.1 Anion Gap 7.9 BUN 33 H Creatinine 1.3 Est GFR (CKD-EPI 2020) 53.50 Glucose 167 H Calcium 8.5 Phosphorus 3.4 Magnesium 1.8 TSH 0.23 L
--- NOTE | 2021-10-23 18:03 | W.POCUS ---
Pocus Exam Limited Cardiac Exam DATE OF EXAM: 10/23/21 TIME OF EXAM: 18:03 PROVIDER THAT PERFORMED THE STUDY: Michele Garza REASON FOR EXAM: Congestive heart failure VISUALIZED STRUCTURES: four chambers, left atrium, left ventricle, LVOT, right atrium, right ventricle, aortic valve, mitral valve, Interventricular septum and IVC VIEW OBTAINED: Apical 4-Chamber, Parasternal long-axis, Parasternal short-axis and Subxiphoid PERTINENT FINDINGS/IMPRESSION: IVC inspiratory collapsability (IVC 1.63 cm w/ 65% collapsibility) and Other normal LV size and systolic function w/ concentric LVH, normal RV size and systolic function, no pericaridal effusion, evidence for grade I diastolic dysfunction ; No pericardial effusion, No RV dilation and No RV dysfunction Exam complete
[2021-10-23 18:54] LABS: Legionella Ag Detection Urine Negative (Negative)
[2021-10-23] MEDS: Normal Saline Flush 10 ML SYR IVP (20:25)
[2021-10-24] VITALS (7 sets, daily range): BP systolic 137–155; BP diastolic 75–91; PULSE 65–98; RESP 1–22; TEMP 36–36.7; O2SAT 94–97
[2021-10-24] MEDS: Albuterol/Ipratropium 3 ML UPD VIAL UPD ×2 (05:55→12:00)
[2021-10-24 06:03] LABS: Abs Immature Grans 0.06 10^3/uL (0.0-0.06); Absolute Basophil Count 0.03 10^3/uL (0.0-0.2); Absolute Eosinophil Count 0.01 10^3/uL (0.0-0.7); Absolute Lymphocyte Count 0.51 10^3/uL (1.2-3.4); Absolute Monocyte Count 1.04 10^3/uL (0.1-0.8); Absolute Neutrophil Count 7.74 10^3/uL (1.2-6.7); Basophils % 0.3; Eosinophils % 0.1; HCT 43.6 % (40.0-50.0); HGB 14.1 g/dL (13.5-17.5); Immature Grans % 0.6; Lymphocytes % 5.4; MCH 30.1 pg (27.0-33.0); MCHC 32.3 % (32.0-36.0); MCV 93 fL (80-95); MPV 10.5 fL (8.0-11.0); Monocytes % 11.1; Neutrophils % 82.5; Platelet Count 148 10^3/uL (130-400); RBC 4.69 10^6/uL (4.36-5.78); RDW 14.8 % (11.8-14.1); RDW-SD 50.9 fL; WBC 9.39 10^3/uL (4.4-10.8)
[2021-10-24 06:20] LABS: Anion Gap 8.1 mmol/L (3-11); BUN 41 mg/dL (7-18); CO2 27.9 mmol/L (21.0-32.0); CREATININE 1.4 mg/dL (0.70-1.30); Calcium 8.8 mg/dL (8.5-10.1); Chloride 102 mmol/L (98-107); Estimated GFR 48.95 (mL/min/1.73m2); Glucose 135 mg/dL (74-106); Magnesium 1.8 mg/dL (1.8-2.4); Potassium 4.4 mmol/L (3.5-5.1); Sodium 138 mmol/L (136-145)
[2021-10-24 06:22] LABS: Hemoglobin A1C 6.4 % (<5.7)
[2021-10-24] MEDS: DOXYCYCLINE 100 MG in Normal Saline 100 ML IVPB (07:25)
[2021-10-24] MEDS: Normal Saline Flush 10 ML SYR IVP (07:26)
[2021-10-24] MEDS: Tiotropium/Olodaterol 10 PUFF INHALER 2 PUFF IH (07:57)
[2021-10-24] MEDS: Omeprazole 20 MG CAPCR PO (08:00)
[2021-10-24] MEDS: predniSONE 20 MG TAB 40 MG PO (08:01)
[2021-10-24] MEDS: cefTRIAXone 2 GM/50 ML BAG IVPB (08:01)
[2021-10-24] MEDS: guaiFENesin 600 MG TABCR PO (08:01)
[2021-10-24] MEDS: Calcium Polycarbophil 625 MG TAB PO (08:03)
--- NOTE | 2021-10-24 11:38 | DSE_ITS ---
Date of service: 10/24/21 Time of Service: 11:38 DS: Diagnosis Discharge Diagnosis (1) Hypersensitivity pneumonitis: Status: Acute (2) Pneumonia: Status: Acute (3) Chronic respiratory failure with hypoxia: Status: Chronic (4) Pulmonary fibrosis, unspecified: Status: Chronic (5) Edema of both lower extremities: Status: Acute (6) Prediabetes: Status: Acute (7) Iatrogenic hyperthyroidism: Status: Acute (8) Chronic diarrhea: Status: Acute (9) Chronic kidney disease, stage 3: Status: Acute Discharge Plan Disposition Patient Disposition: HOME Condition: Stable Discharge Details Reason For Visit: [place],ILD,CHF,?Aspergiollomas Admit Date/Time: 10/22/21 12:27 Admit Provider: Autumn Keller Attending Provider: Autumn Keller Primary Care Provider: Josie Singh [facility] Course Hospital Course: Mr Galindo is an 86 year old male with PMHx of chronic hypoxic respiratory failure on 3L of O2 prn and at night due to pulmonary fibrosis/hypersensitivity pneumonitis, who is steroid dependent, as well as h/o hypothyroidism on levothyroxine, and GERD, who was a patient on [facility] hospitalist service from 10/22/21 until 10/24/21 for acute bacterial pneumonia. He was treated with empiric ceftriaxone and doxycycline, steroids, bronchodilators. He also received a dose of furosemide 40 mg IV x 1 in the ED due to BLE edema. DVT was ruled out. The patient was evaluated by pulmonology on this admission due to possibility of a fungal pneumonia on CT. Due to the patient's rapid improvement without introduction of antifungal therapy, this was deferred. He was not felt to require a bronchoscopy. His sputum is growing yeast as well as normal rocky. Yeast is nonspecific and could reflect oral rocky contamination. Fungal studies are pending at the time of discharge. He is actually requiring less oxygen at the time of discharge as his baseline (2L of O2 by NC rather than 3L which is his baseline). He is being discharged on levofloxacin to complete a 1 week course of antibiotics. He is being discharged on a prednisone taper. He is instructed to stop taking bactrim once his prednisone dose reaches 10 mg. He is being discharged with a prescription for a nebulizer machine. His pulmonology care is being transferred to Dr Segura on discharge, and she will see him in the office in 6 weeks. His fungal studies will need to be followed up by PCP. Additionally, the patient was found to be prediabetic with an A1C of 6.4. He is being given information on dietary modifications, but is not being initiated on medications at this time. The patient did have a POCUS echocardiogram which revealed a preserved LVEF, normally functioning bioprosthetic aortic valve, and no evidence of pulmonary hypertension or RV dysfunction. His IVC was fully collapsible on the echo, and he did not appear fluid overloaded - therefore, he is not being discharged on diuretics. Finally, the patient had a TSH of 0.23. He was on levothyroxine 100 mcg daily at home. Levothyroixine is held on discharge; PCP is asked to repeat a TSH in 2-4 weeks prior to reinitiation of synthroid at a lower dose. Patient is stable for discharge home today. Care for patient as well as completion of his discharge summary on day of discharge took 60 minutes. Home Meds and New Rx's Prescriptions: New ipratropium-albuterol 0.5 mg-3 mg(2.5 mg base)/3 mL Solution For Nebulization 3 ml UPD Q6H Qty: 180 0RF Lactobacillus acidophilus Capsule 1,000 mmu cells PO DAILY Qty: 30 0RF levofloxacin 750 mg tablet 750 mg PO Q48H Qty: 2 0RF Rx Instructions: next dose 10/25/21 prednisone 10 mg tablet See Rx Instructions .ROUTE .COMPLEX Qty: 48 0RF Rx Instructions: 40 mg PO daily x 3 days, then 30 mg PO daily x 3 days, then 20 mg PO daily x 3 days, then 10 mg PO daily Continued omeprazole 20 mg capsule,delayed release(DR/EC) 20 mg PO DAILY Qty: 90 3RF (DME) Oxygen Tank See Rx Instructions .ROUTE Rx Instructions: As directed originally from Dr. Monroe, now Dr. Cam respiratory calcium polycarbophil [FiberCon] 625 mg Tablet 625 mg PO DIRECTED Rx Instructions: 3 times/week Stiolto Respimat 2.5-2.5 mcg/actuation Mist 2 puff INHALATION DAILY guaifenesin [Mucinex] 600 mg Tablet Extended Release 12hr 600 mg PO BID PRN PRN (Reason: Cough) Changed sulfamethoxazole-trimethoprim 800-160 mg tablet 1 tab PO .COMPLEX Qty: 12 0RF Rx Instructions: 1 tab PO 3 times per week; Stop once prednisone dose is 10 mg daily Discontinued levothyroxine 100 mcg tablet 100 mcg PO DAILY Qty: 90 3RF prednisone 20 mg tablet 20 mg PO DAILY Discharge Instructions Instructions: Levofloxacin (By mouth), Basic Carbohydrate Counting (DC), Meal Planning with Diabetes Exchanges (DC), Bacterial Pneumonia (DC), Prediabetes (DC) Additional Instructions: Return to the hospital with any worsening shortness of breath, with any fever, bleeding, chest pain. Finish your antibiotics (levofloxacin) as prescribed. Your first dose of levofloxacin should be tomorrow and the next one 48 hrs later. Follow prednisone taper instructions: 40 mg daily x 3 days, then 30 mg daily x 3 days, then 20 mg daily x 3 days, then 10 mg daily until your appointment with pulmonology (Dr Segura). Once your prednisone dose is 10 mg daily, you should stop taking bactrim. Do not take levothyroxine until your PCP tells you to resume it. Consider decreasing your carbohydrate intake. Stand Alone Forms: Nursing Discharge Form Referrals: Marla Segura MD [ [facility] STAFF PHYSICIAN] - 12/05/22 1:00 pm Josie Singh NP [Primary Care Provider] - Activity:: Activity as Tolerated Equipment/Supplies:: nebulizer machine Diet:: Carb Counting Discharge Orders Discharge Orders: Discharge Order (Routine); Ordered 10/24/21 Ordered By: Autumn Keller DS: Summary Time Spent with Patient providing and/or coordinating discharge services: Greater than 30 minutes Status at Discharge Functional status at discharge: independent ambulation Overall status at discharge: patient is progressing back to baseline Mental Status: mental status grossly normal Speech and Movement: speech and movement normal Mood: congruent mood Affect: normal affect Exam Narrative Exam Narrative: General: A&Ox3, NAD, sitting comfortably in a chair, no dyspnea/tachypnea, on RA when I came to see him. HEENT: EOMI, MMM Cardiovascular: RRR Lungs: basilar rales; overall better aeration B. Gastrointestinal: soft, nontender, nondistended Extremities: 1+ BLE pitting edema up to the knees, improved. Psych Mental Status: mental status grossly normal Speech and Movement: speech and movement normal Mood: congruent mood Affect: normal affect DS: Data Vitals/I&O Vitals and I&O: Vital Signs Temperature 36.0 C L 10/24/21 11:09 Temperature Source Tympanic 10/24/21 11:09 Pulse 88 10/24/21 11:09 Pulse Rhythm Regular 10/24/21 09:28 Pulse 99 H 10/22/21 12:45 Respiratory Rate 20 10/24/21 11:09 Respiratory Effort 10/24/21 09:28 Respiratory Depth Normal 10/24/21 09:28 Respiratory Pattern Normal 10/24/21 09:28 Blood Pressure 150/75 H 10/24/21 11:09 Blood Pressure Mean 76 10/22/21 12:45 Blood Pressure Position Sitting 10/22/21 08:19 Pulse Oximetry 94 10/24/21 11:09 Oxygen Delivery Method Nasal Cannula 10/24/21 11:09 Oxygen Flow Rate 2 10/24/21 11:09 Pain Level 0 10/24/21 11:09 Intake & Output 10/23/21 10/23/21 10/24/21 11:59 23:59 11:59 Intake Total 510 / 1580 1070 / 1580 540 / 540 Output Total 350 / 350 400 / 400 Balance 160 / 1230 1070 / 1230 140 / 140 Weight 77.7 kg 78 kg Intake: IV 160 / 780 620 / 780 100 / 100 Oral 350 / 800 450 / 800 440 / 440 Output: Urine 350 / 350 400 / 400 Other: Urine Color Dark Callie Yellow Urine Appearance Clear Clear Clear Urine Odor Normal Comment voided in toilet pT stated he voided in toilet. Voiding Methods Urinal Toilet Data Completed and Pending Completed studies during hospitalization [Text1]: CXR 10/22/21: Bilateral infiltrates superimposed on chronic fibrotic changes. CT chest: Changes of severe pulmonary fibrosis with traction bronchiectasis.? The cystic spaces are greatest in the lower lobes where there are multiple nodules seen, greatest in the right lower lobe which could resent aspergillomas. Venous dopplers BLEs 10/23/21: 1. No evidence of a right lower extremity DVT. 2. No evidence of a left lower extremity DVT. Labs on day of discharge: Labs from last 24 hours 10/24/21 10/24/21 10/24/21 05:21 05:21 05:21 WBC 9.39 RBC 4.69 Hgb 14.1 Hct 43.6 MCV 93 MCH 30.1 MCHC 32.3 RDW 14.8 H Plt Count 148 MPV 10.5 Immature Gran % 0.6 Neutrophils % 82.5 Lymphocytes % 5.4 Monocytes % 11.1 Eosinophils % 0.1 Basophils % 0.3 Nucleated RBC % 0.0 Absolute Neutrophils 7.74 H Absolute Lymphocytes 0.51 L Absolute Monocytes 1.04 H Absolute Eosinophils 0.01 Absolute Basophils 0.03 Sodium 138 Potassium 4.4 Chloride 102 Carbon Dioxide 27.9 Anion Gap 8.1 BUN 41 H Creatinine 1.4 H Est GFR (CKD-EPI 2020) 48.95 Glucose 135 H Hemoglobin A1c 6.4 H Calcium 8.8 Magnesium 1.8 Blastomyces Ag Result Blastomyces Ag Comment Urine Histoplasma Ag U Histoplasma Ag Index Urine Legionella Ag 10/23/21 10/23/21 10/22/21 18:10 18:10 15:50 WBC RBC Hgb Hct MCV MCH MCHC RDW Plt Count MPV Immature Gran % Neutrophils % Lymphocytes % Monocytes % Eosinophils % Basophils % Nucleated RBC % Absolute Neutrophils Absolute Lymphocytes Absolute Monocytes Absolute Eosinophils Absolute Basophils Sodium Potassium Chloride Carbon Dioxide Anion Gap BUN Creatinine Est GFR (CKD-EPI 2020) Glucose Hemoglobin A1c Calcium Magnesium Blastomyces Ag Result Pending Blastomyces Ag Comment Pending Urine Histoplasma Ag Pending U Histoplasma Ag Index Pending Urine Legionella Ag Negative Preliminary micro results at discharge 10/22/21 08:58 Blood Culture - Preliminary Blood NO GROWTH 48 HOURS 10/22/21 15:50 Sputum Culture - Preliminary Sputum Normal Rocky Fungus 10/22/21 10:45 Blood Culture - Preliminary Blood NO GROWTH 24 HOURS PFSH All Active Problems (Updated 10/24/21 @ 11:47 by Autumn Keller MD) Chronic kidney disease, stage 3 (Acute) Iatrogenic hyperthyroidism (Acute) Prediabetes (Acute) Pulmonary nodules (Acute) Hypersensitivity pneumonitis (Acute) Edema of both lower extremities (Acute) Discharge planning issues (Acute) DVT prophylaxis (Acute) Chronic respiratory failure with hypoxia (Chronic) Pneumonia (Acute) Pulmonary fibrosis, unspecified (Chronic ~07/2021) 08/09/21 Dr Cam Pulmonology, [facility] Chronic diarrhea (Acute ~03/2021) 04/12/21 [facility]. Oscar WANG Sciatica (Acute) Hiatal hernia with GERD without esophagitis (Acute) Carpal tunnel syndrome (Acute) Mixed hyperlipidemia (Acute) Testicular hypofunction (Acute) Anemia (Chronic) Sensorineural hearing loss of both ears (Acute) Hypothyroidism (Chronic) Pulmonary fibrosis (Acute) Aortic valve replaced (Acute ~05/21/16) Hypertension (Chronic) Status post cataract extraction and insertion of intraocular lens of left eye (Chronic 01/05/18) Status post cataract extraction and insertion of intraocular lens of right eye (Chronic 01/05/18) Optic disc cupping (Chronic) Epiretinal membrane (ERM) of left eye (Chronic) Hypertensive retinopathy, grade 2 (Chronic) Medical History (Updated 10/24/21 @ 11:47 by Autumn Keller MD) Cortical cataract of both eyes Malaria Nuclear cataract of both eyes Surgical History (Updated 10/22/21 @ 15:09 by Autumn Keller MD) H/O colonoscopy (~12/2019) H/O esophagogastroduodenoscopy Heart valve replaced (~05/2016) Aortic valve History of lung biopsy (~2005) Family History (Updated 10/22/21 @ 15:10 by Autumn Keller MD) Father Heart attack Mother Heart attack Daughter Cancer Hodgkin's Lymphoma Grandson Cancer synovial sarcoma Social History (Updated 10/22/21 @ 15:11 by Autumn Keller MD) Smoking/Tobacco Use Status: Former Tobacco Use Quit Date: 02/17/09 Tobacco: How many years used: 3 Smoking risk assessment performed?: Yes Alcohol Intake: never Drug use: Never Substance use type: does not use Adopted: No Foster care: No Household members: family Housing: house Number of Children: 4 number of grandchildren: 17 Communication Needs: Hard of Hearing Do you need help understanding health information?: Often Sexually active: No What is your relationship status?: Panel score (0-1 are the most socially isolated patients): 0 Ceci/Taoist: Pentecostal Do you feel safe at home: Yes Do you feel safe in your relationship?: Yes
[2021-10-24 15:09] LABS: Streptococcus Pneumoniae Ag, U Negative (Negative)
--- NOTE | 2021-10-24 16:55 | PDOC.CMDIS ---
- If Service Date Differs Date of service: 10/24/21 Time of Service: 16:55 LACE Index Scoring Tool - Questions: Length of Stay (in days): 2 Acuity (Admit via E.D.?): Yes Comorbidities: Chronic Pulmonary Disease E.D. Visits: 1 - Answers: Total Score: 8 Risk of Readmission: Low Risk Care Management Discharge Reason for Hospitalization: Pneumonia, ILD, CHF, R/O aspergiollomas Discharge Plan: Oniel will return home, with new prescriptions and directions for steroid taper. He will follow up with outpatient providers including his PCP and pulmonology and transport via private vehicle with his daughter, no additional services anticipated at this time. Patient/Family Education Needs: Review discharge instructions, discuss Ask Me Three.
[2021-10-25 01:03] LABS: Fungitell Qualitative Positive (Negative); Fungitell Quantitative Value 109 pg/mL (<60 pg/mL)
[2021-10-26 13:35] LABS: Blastomyces Ag Result Not Detected; Blastomyces Ag Value Not Detected
[2021-10-26 18:30] LABS: Mycoplasma Pneumoniae PCR Negative; Specimen source sputum
== END 2021-10-24 13:43 | disposition home or self-care (01) | DRG 194 ==
LOC: ER 12:47 → MS 13:06
PROVIDERS: Student in an Organized Health Care Education/Training Program; Admitting Provider Internal Medicine; Emergency Provider Registered Nurse Emergency; PCP Nurse Practitioner; Visit Provider Internal Medicine
DX: J18.9 Pneumonia, unspecified organism (principal); J96.11 Chronic respiratory failure with hypoxia; J67.0 Farmer's lung; J84.10 Pulmonary fibrosis, unspecified; Z95.3 Presence of xenogenic heart valve; E03.9 Hypothyroidism, unspecified; Z66 Do not resuscitate; Z99.81 Dependence on supplemental oxygen; K21.9 Gastro-esophageal reflux disease without esophagitis; K52.9 Noninfective gastroenteritis and colitis, unspecified; M54.30 Sciatica, unspecified side; K44.9 Diaphragmatic hernia without obstruction or gangrene; E78.2 Mixed hyperlipidemia; D64.9 Anemia, unspecified; H90.3 Sensorineural hearing loss, bilateral; H35.039 Hypertensive retinopathy, unspecified eye; Z87.891 Personal history of nicotine dependence; R73.03 Prediabetes; N18.30 Chronic kidney disease, stage 3 unspecified; I50.9 Heart failure, unspecified; Z79.51 Long term (current) use of inhaled steroids
CPT/HCPCS: 93308; 36415; 71250; 80048; 80053; 84145; 87040; 87305; 87449; 87637; 93005; 94618; 94640; 96365; 96367; 96375; 99285; J1650; 71045; 83036; 83735; 83880; 84100; 84443; 84484; 85025; 87070; 87205; 87385; 87581; 87899; 93010; 93970; 94664; 94667; 99223; 99233; 99239; J0456; J0696; J1940; J2930; J7512; J7620

== ENCOUNTER 2021-10-26 02:04 | Outpatient (CLI) | payer MEDICARE, SELFPAY ==
--- NOTE | 2021-11-09 16:51 | W.PFT ---
Date of service: 10/26/21 Time of Service: 15:11 Pulmonary Function Test Result Requesting Provider [place] Indications: Chronic HP Interpretation Spirometry: There is no airflow limitation. Ther eis no significant bronchodilator response. Lung Volumes: There is moderate restrictive lung disease. Diffusion Capacity: The diffusion is reduced. Airway Pressure: Normal airways resistance. Impression Moderate restrictive lung disease with a reduced diffuing capactity which is consistent with interstitial lung disease. Clinical Correlation therefore is recommended.
== END 2021-10-26 02:05 | disposition home or self-care (01) ==
LOC: RT 02:04
PROVIDERS: PCP Nurse Practitioner; Visit Provider Student in an Organized Health Care Education/Training Program
DX: J98.4 Other disorders of lung (principal); J67.8 Hypersensitivity pneumonitis due to other organic dusts
CPT/HCPCS: 94060; 94726; 94729

== ENCOUNTER 2021-11-01 09:00 | Inpatient (IN) | payer MEDICARE, SELFPAY ==
[2021-11-01] VITALS (47 sets, daily range): BP systolic 118–180; BP diastolic 76–121; PULSE 77–101; RESP 4–33; TEMP 36.3–36.7; O2SAT 88–96
--- NOTE | 2021-11-01 08:45 | RT.EKG_ITS ---
APPROVED REPORT Exam: Resting ECG Reason for Exam: DYSPNEA Patient Location: E HR:91 bpm ECG Measurements Heart Rate 91 AXIS KS 167 P 32 QRSd 144 QRS -14 QT 407 T 32 QTc 501 Conclusion Sinus rhythm...normal P axis, V-rate 60- 99 Supraventricular bigeminy...bigeminy string>4 w/ SV complexes Left atrial enlargement...P, P'>60mS, <-0.15mV V1 Right bundle branch block...QRSd>120, terminal axis(90,270) ST elevation secondary to IVCD...Multiple VCG criteria. Sinus. RBBB. No STEMI. No significant change from previous. I have reviewed and interpreted ECG and agree with software generated interpretation.
--- NOTE | 2021-11-01 09:30 | DI.RAD_ITS ---
Exam(s) XR PORTABLE CHEST AP EXAM: XR PORTABLE CHEST AP CLINICAL HISTORY: sob, r/o acute disease TECHNIQUE: 2D digital imaging was performed of the chest. One image was obtained. An AP view was ob tained. COMPARISON: CR XR CHEST 2V PA LATERAL from 03/13/2018 CR,XR XR PORTABLE CHEST AP from 10/22/2021 FINDINGS: MEDIASTINUM: Normal. HEART: Normal. There is a prosthetic valve. PULMONARY VASCULATURE: Normal. LUNGS: There are overall pulmonary chronic fibrotic changes in the lungs. Compared to the examinatio n from 10/22/2021 there do appear to be increased markings in the right lung base. No focal consolidat ing infiltrates are seen. PLEURAL SPACE: No pleural effusion or pneumothorax. BONE:Within normal limits for the patient's age. Sternal wires are present. OTHER FINDINGS:Normal. IMPRESSION: Increased lung markings in the right base compared to 10/22/2021. This is superimposed upon diffuse ch ronic pulmonary fibrosis. DATA REPOSITORY: RADIATION DOSE DELIVERED:
[2021-11-01 09:33] LABS: Absolute Eosinophil Count 0.05 10^3/uL (0.0-0.7); Absolute Lymphocyte Count 1.07 10^3/uL (1.2-3.4); Absolute Monocyte Count 0.54 10^3/uL (0.1-0.8); Absolute Neutrophil Count 14.87 10^3/uL (1.2-6.7); Basophils % 0.2; Eosinophils % 0.3; HCT 48.4 % (40.0-50.0); HGB 15.4 g/dL (13.5-17.5); Immature Grans % 1.2; Lymphocytes % 6.4; MCH 29.7 pg (27.0-33.0); MCHC 31.8 % (32.0-36.0); MCV 93 fL (80-95); Monocytes % 3.2; Neutrophils % 88.7; Platelet Count 188 10^3/uL (130-400); RBC 5.18 10^6/uL (4.36-5.78); RDW 14.5 % (11.8-14.1); RDW-SD 50.4 fL; WBC 16.77 10^3/uL (4.4-10.8)
[2021-11-01 09:40] LABS: Absolute Basophil Count 0.03 10^3/uL (0.0-0.2)
--- NOTE | 2021-11-01 09:41 | NUR.NOTE ---
Nursing Note: patient states feeling weak in the right arm, Md aware.
[2021-11-01] MEDS: methylPREDNISolone SUCC 125 MG VIAL IVP (09:48)
--- NOTE | 2021-11-01 09:53 | ED.GENADUL_ITS ---
Discharge Plan Disposition Patient Disposition: [facility] INPATIENT Condition: Fair Discharge Details Clinical Impression: Acute and chronic respiratory failure with hypoxia, COVID-19 Admit Date/Time: 11/01/21 11:59 Admit Provider: Michele Garza Attending Provider: Michele Garza Primary Care Provider: Josie Singh ED Provider: Myra Aponte Discharge Data Discharge Date/Time-TO BE ENTERED AT DEPARTURE: 11/01/21 12:59 Medical Decision Making 86-year-old male with a history of COPD, and chronic hypoxic respiratory failure on 3 L nasal cannula oxygen as needed and at night due to pulmonary fibrosis and hypersensitivity pneumonitis who is steroid-dependent with a history of hypothyroidism, GERD recently admitted to the hospital last week for pneumonia now presents for increasing shortness of breath and weakness after testing positive for COVID 4 days ago. Patient appears comfortable and nontoxic. He is speaking in full sentences. Oxygen saturation 92% on 4 L nasal cannula. He has wheezing and rhonchi through out. He has 1+ pitting edema bilateral lower extremities. Symptom presentation may be secondary to superimposed COVID on recent lab data requiring increasing respiratory support. We will continue on nasal cannula at this time as he appears to be breathing comfortably. We will give a DuoNeb and Solu-Medrol IV. Will obtain screening labs, portable chest x-ray. Labs and imaging reviewed. White blood cell count 16. Lactate 1.6. Magnesium 1.6, will replete. Troponin negative. COVID result positive. Chest x-ray reviewed and notes findings consistent with pulmonary fibrosis with increased lung markings in the right lung base. He is already taking Bactrim and Levaquin for recent pneumonia. We will hold on additional antibiotics at this time. Will consider CT chest to rule out PE. Case discussed with Dr. Dior who accepts patient for admission. Remdesivir [address] chest ordered which was negative for PE. Medical Records Medical records reviewed: Yes I reviewed the patient's medical records. Imaging Data Radiologic Study: Radiologist's impression: XR PORTABLE CHEST AP CLINICAL HISTORY:? sob, r/o acute disease TECHNIQUE:? 2D digital imaging was performed of the chest. One image was obtained.? An AP view was obtained. COMPARISON:? CR XR CHEST 2V PA ? LATERAL from 03/13/2018 CR,XR XR PORTABLE CHEST AP from 10/22/2021 FINDINGS: MEDIASTINUM: Normal.? HEART: Normal. There is a prosthetic valve. PULMONARY VASCULATURE: Normal. LUNGS: There are overall pulmonary chronic fibrotic changes in the lungs.? Compared to the examination from 10/22/2021 there do appear to be increased markings in the right lung base.? No focal consolidating infiltrates are seen. ? PLEURAL SPACE: No pleural effusion or pneumothorax. BONE:Within normal limits for the patient's age. Sternal wires are present. OTHER FINDINGS:Normal.? IMPRESSION: Increased lung markings in the right base compared to 10/22/2021.? This is superimposed upon diffuse chronic pulmonary fibrosis.? CT CHEST PE CTA CLINICAL HISTORY: ? sob, r/o PE. TECHNIQUE:? Imaging Protocol:? Axial CT angiography was performed with multi- slice acquisition and multi-planar and/or 3D reconstructions. CONTRAST MATERIAL:? Intravenous: Omnipaque 350 contrast volume:75 mL COMPARISON:? CT CT CHEST WO from 10/22/2021 FINDINGS: Tracheobronchial tree: Patent where visualized. Pulmonary parenchyma: There are now bilateral diffuse ground-glass opacities in the lungs predominantly involving the bases.? There is again seen diffuse bilateral chronic pulmonary fibrosis.? Confluent opacities are stable in the lower lobes.? Pulmonary Arteries: No evidence of filling defect to suggest pulmonary emboli. Mediastinum and Celeste: No dominant adenopathy or fluid collection.? The esophagus is unremarkable.? There is a large hiatal hernia present. Visualized thyroid gland: Unremarkable.? Pleura: Pleural calcifications are again seen bilaterally.? No pleural effusion is present.? There is no pneumothorax.? Heart: Coronary artery calcifications are present.? There is cardiomegaly.? No pericardial effusion.? There is an aortic valve replacement. Aorta: Thoracic aorta non-dilated. No evidence of dissection. There is atherosclerosis. Upper abdomen:? Unremarkable. Soft tissues: Unremarkable.? Bones: Within normal limits for the patient's age. IMPRESSION: 1. No evidence of pulmonary embolism, thoracic aortic dissection or aneurysm. 2. Bilateral diffuse ground-glass opacities which are new compared to the examination from 10/22/2021.? The findings would be consistent with atypical infections including COVID-19. 3. Results of this exam have been verbally communicated with provider. Lab Data Lab results reviewed: Yes I reviewed the patient's lab results. Labs: 11/01/21 11:30 Blood Blood Culture - Pending 11/01/21 11:25 Blood Blood Culture - Pending Laboratory Tests Range/Units 11/01/21 11/01/21 11/01/21 09:20 09:20 09:25 WBC (4.4-10.8) 10^3/uL 16.77 H RBC (4.36-5.78) 10^6/uL 5.18 Hgb (13.5-17.5) g/dL 15.4 Hct (40.0-50.0) % 48.4 MCV (80-95) fL 93 MCH (27.0-33.0) pg 29.7 MCHC (32.0-36.0) % 31.8 L RDW (11.8-14.1) % 14.5 H Plt Count (130-400) 10^3/uL 188 MPV (8.0-11.0) fL 10.0 Immature Gran % 1.2 Neutrophils % 88.7 Lymphocytes % 6.4 Monocytes % 3.2 Eosinophils % 0.3 Basophils % 0.2 Nucleated RBC % (0.0-0.3) % 0.0 Absolute Neutrophils (1.2-6.7) 10^3/uL 14.87 H Absolute Lymphocytes (1.2-3.4) 10^3/uL 1.07 L Absolute Monocytes (0.1-0.8) 10^3/uL 0.54 Absolute Eosinophils (0.0-0.7) 10^3/uL 0.05 Absolute Basophils (0.0-0.2) 10^3/uL 0.03 VBG Lactate (0.6-1.4) mmol/L Sodium (136-145) mmol/L 136 Potassium (3.5-5.1) mmol/L 3.7 Chloride (98-107) mmol/L 100 Carbon Dioxide (21.0-32.0) mmol/L 31.7 Anion Gap (3-11) mmol/L 4.3 BUN (7-18) mg/dL 22 H Creatinine (0.70-1.30) mg/dL 1.1 Est GFR (CKD-EPI 2020) (mL/min/1.73m2) 65.38 Glucose (74-106) mg/dL 75 Calcium (8.5-10.1) mg/dL 8.6 Magnesium (1.8-2.4) mg/dL 1.6 L Total Bilirubin (0.2-1.0) mg/dL 0.3 AST (15-37) U/L 45 H ALT (16-63) U/L 38 Alkaline Phosphatase (46-116) U/L 142 H Troponin I (<or=60) ng/L 59 Total Protein (6.4-8.2) g/dL 7.2 Albumin (3.4-5.0) g/dL 2.4 L COVID-19 Source Not Applicable SARS-CoV-2 (PCR) (Negative) Positive A Influenza Type A (PCR) (Negative) Negative Influenza Type B (PCR) (Negative) Negative RSV (PCR) (Negative) Negative Range/Units 11/01/21 11:30 WBC (4.4-10.8) 10^3/uL RBC (4.36-5.78) 10^6/uL Hgb (13.5-17.5) g/dL Hct (40.0-50.0) % MCV (80-95) fL MCH (27.0-33.0) pg MCHC (32.0-36.0) % RDW (11.8-14.1) % Plt Count (130-400) 10^3/uL MPV (8.0-11.0) fL Immature Gran % Neutrophils % Lymphocytes % Monocytes % Eosinophils % Basophils % Nucleated RBC % (0.0-0.3) % Absolute Neutrophils (1.2-6.7) 10^3/uL Absolute Lymphocytes (1.2-3.4) 10^3/uL Absolute Monocytes (0.1-0.8) 10^3/uL Absolute Eosinophils (0.0-0.7) 10^3/uL Absolute Basophils (0.0-0.2) 10^3/uL VBG Lactate (0.6-1.4) mmol/L 1.6 H Sodium (136-145) mmol/L Potassium (3.5-5.1) mmol/L Chloride (98-107) mmol/L Carbon Dioxide (21.0-32.0) mmol/L Anion Gap (3-11) mmol/L BUN (7-18) mg/dL Creatinine (0.70-1.30) mg/dL Est GFR (CKD-EPI 2020) (mL/min/1.73m2) Glucose (74-106) mg/dL Calcium (8.5-10.1) mg/dL Magnesium (1.8-2.4) mg/dL Total Bilirubin (0.2-1.0) mg/dL AST (15-37) U/L ALT (16-63) U/L Alkaline Phosphatase (46-116) U/L Troponin I (<or=60) ng/L Total Protein (6.4-8.2) g/dL Albumin (3.4-5.0) g/dL COVID-19 Source SARS-CoV-2 (PCR) (Negative) Influenza Type A (PCR) (Negative) Influenza Type B (PCR) (Negative) RSV (PCR) (Negative) ECG Data Attestation: I personally reviewed and interpreted this ECG (s) as follows: Interpretation: Rate of 91, sinus, right bundle branch block, no stemi, no significant change from previous EKG. HPI General Mode of arrival: ambulatory . Date/Time Provider Initiated Documentation: 11/01/21 09:03 . Limitations to Documentation: no limitations . Information obtained by: patient . HPI Narrative: Patient is an 86-year-old male with a history of COPD, and chronic hypoxic respiratory failure on 3 L nasal cannula oxygen as needed and at night due to pulmonary fibrosis and hypersensitivity pneumonitis who is steroid-dependent with a history of hypothyroidism, GERD recently admitted to the hospital last week for pneumonia now presents for increasing shortness of breath and weakness after testing positive for COVID 4 days ago. Patient states he is vaccinated for COVID. Patient states his entire family has COVID now. Patient states he was up walking to the bathroom this morning when he felt increasing shortness of breath and weakness. He states he is usually on oxygen as needed 2 to 3 L but has been on 3 L continuously for the past 2 weeks since diagnosed with pneumonia. He states he is still taking antibiotics. He states he has had intermittent productive cough. He denies any fever, chest pain, abdominal pain, vomiting, diarrhea. He states he has been eating and drinking. Related Data Home Medications Medication Instructions Recorded Confirmed omeprazole 20 mg capsule,delayed 20 mg PO DAILY #90 caps 04/16/21 11/01/21 release Oxygen 09/19/21 11/01/21 calcium polycarbophil 625 mg 625 mg PO DIRECTED 10/22/21 11/01/21 tablet (FiberCon) guaifenesin 600 mg tablet, 600 mg PO BID PRN PRN Cough 10/22/21 11/01/21 extended release 12 hr (Mucinex) tiotropium 2.5 mcg-olodaterol 2.5 2 puff inhalation DAILY 10/22/21 11/01/21 mcg/actuation mist for inhalation (Stiolto Respimat) Lactobacillus acidophilus 1,000 mmu cells PO DAILY #30 caps 10/24/21 11/01/21 ipratropium 0.5 mg-albuterol 3 mg 3 ml UPD Q6H shortness of breath 10/24/21 11/01/21 (2.5 mg base)/3 mL nebulization or breathing #180 mL soln levofloxacin 750 mg tablet 750 mg PO Q48H #2 tabs 10/24/21 11/01/21 prednisone 10 mg tablet See Rx Instructions .Route 10/24/21 11/01/21 .COMPLEX #48 tabs sulfamethoxazole 800 1 tab PO .COMPLEX Prophylaxis #12 10/24/21 11/01/21 mg-trimethoprim 160 mg tablet tabs nirmatrelvir 150 mg-ritonavir 100 See Rx Instructions PO PER PKG DIR 10/29/21 11/01/21 mg tablets in a dose pack (EUA) 5 days #20 dose pk (Paxlovid) Previous Rx's Medication Instructions Recorded omeprazole 20 mg capsule,delayed 20 mg PO DAILY #90 caps 04/16/21 release Lactobacillus acidophilus 1,000 mmu cells PO DAILY #30 caps 10/24/21 ipratropium 0.5 mg-albuterol 3 mg 3 ml UPD Q6H shortness of breath 10/24/21 (2.5 mg base)/3 mL nebulization or breathing #180 mL soln levofloxacin 750 mg tablet 750 mg PO Q48H #2 tabs 10/24/21 prednisone 10 mg tablet See Rx Instructions .Route 10/24/21 .COMPLEX #48 tabs sulfamethoxazole 800 1 tab PO .COMPLEX Prophylaxis #12 10/24/21 mg-trimethoprim 160 mg tablet tabs nirmatrelvir 150 mg-ritonavir 100 See Rx Instructions PO PER PKG DIR 10/29/21 mg tablets in a dose pack (EUA) 5 days #20 dose pk (Paxlovid) Allergies Allergy/AdvReac Type Severity Reaction Status Date / Time No Known Allergies Allergy Verified 11/01/21 09:24 General Stated Complaint: SOB SHAHRIAR: 2 Review of Systems All systems reviewed & are unremarkable except as noted in HPI and below Constitutional Constitutional: Denies chills, Denies excessive sweating, Denies fatigue, Denies fever(s), Reports weakness and Denies weight loss Eyes Eyes: Reports system reviewed and no additional complaints, except as documented and Denies blurry vision ENT Ears, Nose, Mouth, and Throat: Denies vertigo, Denies dizziness, Denies otalgia, Denies nasal congestion, Denies sore throat and Denies throat swelling Cardiovascular Cardiovascular: Denies chest pain, Denies syncope, Denies rapid heart rate and Reports dyspnea Respiratory Respiratory: Denies chest congestion, Reports cough, Denies pain on inspiration and Reports dyspnea Gastrointestinal Gastrointestinal: Denies abdominal pain, Denies diarrhea and Denies vomiting Genitourinary Genitourinary: Denies hematuria, Denies dysuria and Denies flank pain Musculoskeletal Musculoskeletal: Denies back pain and Denies joint swelling Integumentary/Breasts Skin/Breast: Denies lesions and Denies rash Neurologic Neurologic: Denies behavioral changes, Denies confusion, Denies vertigo, Denies dizziness, Denies syncope, Denies localized weakness and Reports weakness Psychiatric Psychiatric: Denies behavioral changes, Denies confusion and Denies depression Endocrine Endocrine: Denies excessive sweating and Denies fatigue Hematologic/Lymphatic Hematologic/Lymphatic: Denies easy bruising and Denies lymphadenopathy Allergic/Immunologic Allergic/Immunologic: Denies throat swelling PFSH All Active Problems (Updated 11/01/21 @ 19:52 by Michele Garza MD) DVT prophylaxis (Acute) Acute and chronic respiratory failure with hypoxia (Acute) COVID-19 (Acute) Chronic kidney disease, stage 3 (Acute) Iatrogenic hyperthyroidism (Acute) Prediabetes (Acute) Pulmonary nodules (Acute) Hypersensitivity pneumonitis (Acute) Edema of both lower extremities (Acute) Chronic respiratory failure with hypoxia (Chronic) Pneumonia (Acute) Pulmonary fibrosis, unspecified (Chronic ~07/2021) 08/09/21 Dr Cam Pulmonology, [facility] Chronic diarrhea (Acute ~03/2021) 04/12/21 [facility]. Oscar WANG Sciatica (Acute) Hiatal hernia with GERD without esophagitis (Acute) Carpal tunnel syndrome (Acute) Mixed hyperlipidemia (Acute) Testicular hypofunction (Acute) Anemia (Chronic) Sensorineural hearing loss of both ears (Acute) Hypothyroidism (Chronic) Pulmonary fibrosis (Acute) Aortic valve replaced (Acute ~05/21/16) Hypertension (Chronic) Status post cataract extraction and insertion of intraocular lens of left eye (Chronic 01/05/18) Status post cataract extraction and insertion of intraocular lens of right eye (Chronic 01/05/18) Optic disc cupping (Chronic) Epiretinal membrane (ERM) of left eye (Chronic) Hypertensive retinopathy, grade 2 (Chronic) Medical History Cortical cataract of both eyes Malaria Nuclear cataract of both eyes Surgical History H/O colonoscopy (~12/2019) H/O esophagogastroduodenoscopy Heart valve replaced (~05/2016) Aortic valve History of lung biopsy (~2005) Family History Father Heart attack Mother Heart attack Daughter Cancer Hodgkin's Lymphoma Grandson Cancer synovial sarcoma Social History Smoking/Tobacco Use Status: Former Tobacco Use Quit Date: 02/17/09 Tobacco: How many years used: 3 Smoking risk assessment performed?: Yes Alcohol Intake: never Drug use: Never Substance use type: does not use Adopted: No Foster care: No Household members: family Housing: house Number of Children: 4 number of grandchildren: 17 Communication Needs: Hard of Hearing Do you need help understanding health information?: Often Sexually active: No What is your relationship status?: Panel score (0-1 are the most socially isolated patients): 0 Ceci/Congregation: Bahai Do you feel safe at home: Yes Do you feel safe in your relationship?: Yes Exam Const General: cooperative and no acute distress Orientation: alert, awake and oriented x3 HENMT Head: normal to inspection Ears: hearing grossly normal bilaterally and external ears normal General nose exam: external nose normal Face and sinus: normal facial exam Eyes General: appearance normal, both eyes and all related structures Eyelids: eyelids normal Pupils: PERRL EOM: EOM intact bilaterally Neck Neck: normal visual inspection Lymphatic: no lymphadenopathy noted Chest Chest: normal inspection of the chest Resp Effort & Inspection: normal respiratory effort and able to speak in complete sentences Auscultation: rhonchi upper bilaterally and lower bilaterally and wheezes expiratory wheezes and inspiratory wheezes Cardio Rate: regular rate Rhythm: regular rhythm GI Inspection: normal to inspection Palpation: soft, not firm, no guarding, no hepatosplenomegaly, no masses and nontender Auscultation: hypoactive bowel sounds Skin General skin exam: no rashes or lesions noted Neuro General: patient alert and patient awake Cognition: normal cognition Speech: speech normal Gait: normal gait Motor: muscle tone normal throughout Sensory Exam: no sensory deficits noted Extrem General: normal to inspection, full ROM, capillary refill normal and edema Laterality: bilateral (1+ pitting) Psych Appearance: grossly normal Mental Status: mental status grossly normal Speech and Movement: speech and movement normal Affect: normal affect Thought Process: normal Course Vital Signs Vital signs: Vital Signs Temperature 98.0 F 11/01/21 09:06 Pulse 95 H 11/01/21 09:06 Respiratory Rate 24 11/01/21 09:06 Blood Pressure 180/102 H 11/01/21 09:06 Pulse Oximetry 93 11/01/21 09:06 Temperature 98.0 F 11/01/21 09:06 Temperature Source Skin 11/01/21 09:06 Pulse 87 11/01/21 09:46 Pulse 89 11/01/21 09:46 Respiratory Rate 28 H 11/01/21 09:46 Respiratory Effort 11/01/21 09:17 Respiratory Depth Shallow 11/01/21 09:17 Respiratory Pattern Tachypnea 11/01/21 09:17 Blood Pressure 144/87 H 11/01/21 09:46 Blood Pressure Mean 101 11/01/21 09:46 Blood Pressure Position Supine 11/01/21 09:06 Pulse Oximetry 92 11/01/21 09:46 Oxygen Delivery Method Nasal Cannula 11/01/21 09:06 Oxygen Flow Rate 5 11/01/21 09:06 Lab/Test Results Lab/Test Results: Laboratory Tests Range/Units 11/01/21 09:20 WBC (4.4-10.8) 10^3/uL 16.77 H RBC (4.36-5.78) 10^6/uL 5.18 Hgb (13.5-17.5) g/dL 15.4 Hct (40.0-50.0) % 48.4 MCV (80-95) fL 93 MCH (27.0-33.0) pg 29.7 MCHC (32.0-36.0) % 31.8 L RDW (11.8-14.1) % 14.5 H Plt Count (130-400) 10^3/uL 188 MPV (8.0-11.0) fL 10.0 Immature Gran % 1.2 Neutrophils % 88.7 Lymphocytes % 6.4 Monocytes % 3.2 Eosinophils % 0.3 Basophils % 0.2 Nucleated RBC % (0.0-0.3) % 0.0 Absolute Neutrophils (1.2-6.7) 10^3/uL 14.87 H Absolute Lymphocytes (1.2-3.4) 10^3/uL 1.07 L Absolute Monocytes (0.1-0.8) 10^3/uL 0.54 Absolute Eosinophils (0.0-0.7) 10^3/uL 0.05 Absolute Basophils (0.0-0.2) 10^3/uL 0.03
[2021-11-01 09:57] LABS: ALT 38 U/L (16-63); AST 45 U/L (15-37); Albumin 2.4 g/dL (3.4-5.0); Alkaline Phosphatase 142 U/L (46-116); Anion Gap 4.3 mmol/L (3-11); BUN 22 mg/dL (7-18); Bilirubin, Total 0.3 mg/dL (0.2-1.0); CO2 31.7 mmol/L (21.0-32.0); CREATININE 1.1 mg/dL (0.70-1.30); Calcium 8.6 mg/dL (8.5-10.1); Chloride 100 mmol/L (98-107); Estimated GFR 65.38 (mL/min/1.73m2); Glucose 75 mg/dL (74-106); Magnesium 1.6 mg/dL (1.8-2.4); Potassium 3.7 mmol/L (3.5-5.1); Sodium 136 mmol/L (136-145); Total Protein 7.2 g/dL (6.4-8.2); Troponin I 59 ng/L (<or=60)
[2021-11-01] MEDS: Albuterol/Ipratropium 3 ML UPD VIAL UPD (09:59)
[2021-11-01] MEDS: Albuterol 2.5 MG/3 ML INH SOLN VIAL UPD (09:59)
[2021-11-01] MEDS: Normal Saline Flush 10 ML SYR (10:00)
[2021-11-01 10:09] LABS: Influenza A PCR Negative (Negative); Influenza B PCR Negative (Negative); RSV PCR Negative (Negative)
[2021-11-01] MEDS: MAGNESIUM SULFATE 1 GM/100 ML BAG IVPB (10:17)
[2021-11-01 10:35] LABS: COVID-19 PCR Positive (Negative)
[2021-11-01 11:35] LABS: Lactate 1.6 mmol/L (0.6-1.4)
--- NOTE | 2021-11-01 11:45 | DI.CT_ITS ---
Exam(s) CT CHEST PE CTA EXAM: CT CHEST PE CTA CLINICAL HISTORY: sob, r/o PE. TECHNIQUE: Imaging Protocol: Axial CT angiography was performed with multi-slice acquisition and mu lti-planar and/or 3D reconstructions. CONTRAST MATERIAL: Intravenous: Omnipaque 350 contrast volume:75 mL COMPARISON: CT CT CHEST WO from 10/22/2021 FINDINGS: Tracheobronchial tree: Patent where visualized. Pulmonary parenchyma: There are now bilateral diffuse ground-glass opacities in the lungs predominant ly involving the bases. There is again seen diffuse bilateral chronic pulmonary fibrosis. Confluent opacities are stable in the lower lobes. Pulmonary Arteries: No evidence of filling defect to suggest pulmonary emboli. Mediastinum and Celeste: No dominant adenopathy or fluid collection. The esophagus is unremarkable. Th ere is a large hiatal hernia present. Visualized thyroid gland: Unremarkable. Pleura: Pleural calcifications are again seen bilaterally. No pleural effusion is present. There is no pneumothorax. Heart: Coronary artery calcifications are present. There is cardiomegaly. No pericardial effusion. There is an aortic valve replacement. Aorta: Thoracic aorta non-dilated. No evidence of dissection. There is atherosclerosis. Upper abdomen: Unremarkable. Soft tissues: Unremarkable. Bones: Within normal limits for the patient's age. IMPRESSION: 1. No evidence of pulmonary embolism, thoracic aortic dissection or aneurysm. 2. Bilateral diffuse ground-glass opacities which are new compared to the examination from 10/22/2021. The findings would be consistent with atypical infections including COVID-19. 3. Results of this exam have been verbally communicated with provider. RADIATION DOSE DELIVERED: 300.24mGy.cm Total DLP DATA REPOSITORY: All CT scans at this facility are submitted to the National Radiology Data Registry (NRDR) Dose Index Registry (DIR) with the [employer] (A[employer]). RADIATION OPTIMIZATION: All CT scans at this facility use at least one of these dose optimization te chniques: automated exposure control; mA and/or kV adjustment per patient size (includes targeted exa ms where dose is matched to clinical indication); or iterative reconstruction.
[2021-11-01 12:28] LABS: Procalcitonin < 0.1 ng/mL
[2021-11-01 12:38] LABS: C-Reactive Protein 7.03 mg/dL (0.0-0.3)
[2021-11-01 12:40] LABS: Creatine Kinase 53 U/L (39-308); LDH 563 U/L (85-227)
[2021-11-01 12:42] LABS: Prothrombin Time 9.9 sec (9.3-11.0)
[2021-11-01] MEDS: Omnipaque 350 MG/ML 100 ML BTL IJ (12:47)
[2021-11-01 12:54] LABS: Ferritin 750 ng/mL (26-388)
[2021-11-01 12:56] LABS: D-Dimer 3264 ng/mlFEU (<500)
[2021-11-01 12:59] LABS: PTT Activated 25.4 sec (21.0-27.5)
[2021-11-01] MEDS: Normal Saline Flush 10 ML SYR IVP (13:15)
[2021-11-01] MEDS: REMDESIVIR 200 MG in Normal Saline 250 ML 250 MG IVPB (13:15)
[2021-11-01] MEDS: Enoxaparin 40 MG/0.4 ML SYR SC (13:15)
--- NOTE | 2021-11-01 13:31 | W.PM.HP.N ---
Date of service: 11/01/21 Time of Service: 13:31 Assessment and Plan Assessment and plan (1) COVID-19: Status: Acute Assessment and plan: cont. Remdesivir, hold prednisone while on dexamethasone, encourage use of IS and Acapella, supportive care w/ oxygen per nasal cannula; use CPAP at night (2) Pneumonia: Status: Acute Assessment and plan: empiric Rocephin, doxycycline pending workup. empiric voriconazole; repeat sputum culture and fungitell and atypical studies, encourage pulmonary toiletry (3) Acute and chronic respiratory failure with hypoxia: Status: Acute Assessment and plan: cont. home dose of Stiolto; use scheduled Combivent and prn albuterol MDI, supportive care w/ oxygen per nasal cannula; use CPAP at night to prevent atelectasis; encourage being out of bed and mobilization and use of IS/acapella (4) Pulmonary fibrosis, unspecified: Status: Chronic (5) Hypersensitivity pneumonitis: Status: Acute Assessment and plan: prednisone taper put on hold while he is being treated for his COVID pneumonia (6) Hiatal hernia with GERD without esophagitis: Status: Acute Assessment and plan: cont. omeprazole (7) DVT prophylaxis: Status: Acute Assessment and plan: enoxaparin 40 mg SC daily History of Present Illness History of Present Illness Chief Complaint: cough, dyspnea Narrative: Mr. Galindo is a 86-year-old muñoz with history of chronic hypoxic respiratory failure uses 3 L oxygen as needed and at night due to pulmonary fibrosis and hypersensitivity pneumonitis who is steroid-dependent also has history of hypothyroidism on levothyroxine and GERD who was hospitalized from 10/22/2021 to 10/24/2021 for what was felt to be an acute bacterial pneumonia. He is treat empirically with ceftriaxone and doxycycline and steroids and bronchodilators. CT of the chest demonstrates severe fibrotic changes with honeycombing bilaterally with traction bronchiectasis and nodules seen in both lower lobes right greater than left within cystic spaces suspicious for fungal balls. Largest measured 2.1 cm. He was seen by Dr. Marla Segura from pulmonary services. See her note from 10/23/2021 for details. Because the patient improved remarkably within 24 to 48 hours of beginning antibiotics and steroids and bronchodilators he was clinically felt to have a community-acquired pneumonia. It was recommended that he continue on 7-day course of antibiotic treatment to cover for commune acquired pneumonia and therefore was discharged home on Levaquin and 750 mg daily. It was also recommended that he be prophylaxed against PJP with Bactrim until his prednisone was tapered down below 20 mg a day. Is recommended go home on a prednisone taper of 40 mg daily for 3 more days then 30 mg daily for 3 days then 20 mg daily for 3 days then 10 mg daily until he could follow-up with Dr. Segura. She plan to follow-up as an outpatient with a follow-up CT scan of his chest and pulmonary function tests and to consider him for Ofev. In the interim patient got exposed to COVID-19 from his granddaughter and her children who live with him and care for him. Patient has been vaccinated but is only had 1 booster vaccine after his primary series. He was tested 4 days ago at home with a COVID test that was positive. He was prescribed Paxlovid. Despite this he has had increasing dyspnea at rest as well as w/ minimal ADL performance and he has had increased hypoxemia w/ SPO2 below 80% w/ activity. On arrival he was able to speak in complete sentences and was not using his accessory respiratory muscles and his SPO2 was 92% on 4 lpm NC. Workup in the ER included CXR that demonstrated increased lung marking in his right lung based superimposed on diffuse chronic pulmonary fibrosis when compared to prior images from 10/22/21. CTA of his chest did not show any PE or aneurysms but bilateral diffuse ground glass opacities new compared to his prior exam from 10/22/21. Labs were remarkable for WBC 16,700 w/ incr. PMN 14,800 , lactate of 1.6, procalcitonin <0.1, CRP 7.0, LDH 563, ferritin 750, Mg 1.6. Nasal PCR confirmed SARS-COV2. He was given DuoNeb treatment and Solumedrol 125 mg and he was started on Remdesivir 200 mg while in the ER. Patient is admitted to med/surg for treatment of COVID-19 pneumonia. He will be put empirically on Rocephin and doxycycline until concommittant bacterial infecition is ruled out. During his last admission, concern was raised for possible fungal lung infection d/t his chronic immunosuppresion on prednisone. His sputum grew rare growth of fungus. He had fungal studies done including blastomyces antigen, histoplasma antigen and aspergillus antigen all which were negative. However his B-1,3-D-Glucan was positive w/ quantitative value of 109. His mycoplasma and legionella studies were negative. He was not treated w/ antifungal last admission because he responded markedly w/ iv antibiotics and was sent home on 7 days of Levaquin. Pulmonary will be re-consulted, repeat fungal studies will be ordered and he will be empirically put on antifungals. As he has COVID and hypoxemia, he is not a candidate for bronchoscopy at present. he will be continued on bactrim DS for PJP prophylaxis. Review of Systems All systems reviewed & are unremarkable except as noted in HPI and below Constitutional Constitutional: Denies chills, Denies fever(s) and Reports lethargy ENT Ears, Nose, Mouth, and Throat: Reports system reviewed and no additional complaints, except as documented Cardiovascular Cardiovascular: Reports system reviewed and no additional complaints, except as documented and Reports dyspnea Respiratory Respiratory: Reports chest congestion, Reports cough, Reports hemoptysis (occasional flecks), Reports excessive phlegm production, Reports dyspnea and Reports wheezing Gastrointestinal Gastrointestinal: Reports system reviewed and no additional complaints, except as documented Genitourinary Genitourinary: Reports system reviewed and no additional complaints, except as documented Musculoskeletal Musculoskeletal: Reports system reviewed and no additional complaints, except as documented Neurologic Neurologic: Reports system reviewed and no additional complaints, except as documented Endocrine Endocrine: Reports system reviewed and no additional complaints, except as documented Hematologic/Lymphatic Hematologic/Lymphatic: Reports system reviewed and no additional complaints, except as documented Allergic/Immunologic Allergic/Immunologic: Reports system reviewed and no additional complaints, except as documented and Reports wheezing PFSH All Active Problems (Updated 11/01/21 @ 19:52 by Michele Garza MD) DVT prophylaxis (Acute) Acute and chronic respiratory failure with hypoxia (Acute) COVID-19 (Acute) Chronic kidney disease, stage 3 (Acute) Iatrogenic hyperthyroidism (Acute) Prediabetes (Acute) Pulmonary nodules (Acute) Hypersensitivity pneumonitis (Acute) Edema of both lower extremities (Acute) Chronic respiratory failure with hypoxia (Chronic) Pneumonia (Acute) Pulmonary fibrosis, unspecified (Chronic ~07/2021) 08/09/21 Dr Cam Pulmonology, [facility] Chronic diarrhea (Acute ~03/2021) 04/12/21 [facility]. P.Peitte GANG PUSHER Sciatica (Acute) Hiatal hernia with GERD without esophagitis (Acute) Carpal tunnel syndrome (Acute) Mixed hyperlipidemia (Acute) Testicular hypofunction (Acute) Anemia (Chronic) Sensorineural hearing loss of both ears (Acute) Hypothyroidism (Chronic) Pulmonary fibrosis (Acute) Aortic valve replaced (Acute ~05/21/16) Hypertension (Chronic) Status post cataract extraction and insertion of intraocular lens of left eye (Chronic 01/05/18) Status post cataract extraction and insertion of intraocular lens of right eye (Chronic 01/05/18) Optic disc cupping (Chronic) Epiretinal membrane (ERM) of left eye (Chronic) Hypertensive retinopathy, grade 2 (Chronic) Medical History Cortical cataract of both eyes Malaria Nuclear cataract of both eyes Surgical History H/O colonoscopy (~12/2019) H/O esophagogastroduodenoscopy Heart valve replaced (~05/2016) Aortic valve History of lung biopsy (~2005) Family History Father Heart attack Mother Heart attack Daughter Cancer Hodgkin's Lymphoma Grandson Cancer synovial sarcoma Social History Smoking/Tobacco Use Status: Former Tobacco Use Quit Date: 02/17/09 Tobacco: How many years used: 3 Smoking risk assessment performed?: Yes Alcohol Intake: never Drug use: Never Substance use type: does not use Adopted: No Foster care: No Household members: family Housing: house Number of Children: 4 number of grandchildren: 17 Communication Needs: Hard of Hearing Do you need help understanding health information?: Often Sexually active: No What is your relationship status?: Panel score (0-1 are the most socially isolated patients): 0 Ceci/Hoahaoism: Oriental Orthodox Do you feel safe at home: Yes Do you feel safe in your relationship?: Yes Meds Allergies and Home Medications Allergies Allergy/AdvReac Type Severity Reaction Status Date / Time No Known Allergies Allergy Verified 11/01/21 09:24 Home Medications Medication Instructions Recorded Confirmed Type omeprazole 20 mg capsule,delayed 20 mg PO DAILY #90 caps 04/16/21 11/01/21 Rx release Oxygen 09/19/21 11/01/21 History calcium polycarbophil 625 mg 625 mg PO DIRECTED 10/22/21 11/01/21 History tablet (FiberCon) guaifenesin 600 mg tablet, 600 mg PO BID PRN PRN Cough 10/22/21 11/01/21 History extended release 12 hr (Mucinex) tiotropium 2.5 mcg-olodaterol 2.5 2 puff inhalation DAILY 10/22/21 11/01/21 History mcg/actuation mist for inhalation (Stiolto Respimat) Lactobacillus acidophilus 1,000 mmu cells PO DAILY #30 caps 10/24/21 11/01/21 Rx ipratropium 0.5 mg-albuterol 3 mg 3 ml UPD Q6H shortness of breath 10/24/21 11/01/21 Rx (2.5 mg base)/3 mL nebulization or breathing #180 mL soln levofloxacin 750 mg tablet 750 mg PO Q48H #2 tabs 10/24/21 11/01/21 Rx prednisone 10 mg tablet See Rx Instructions .Route 10/24/21 11/01/21 Rx .COMPLEX #48 tabs sulfamethoxazole 800 1 tab PO .COMPLEX Prophylaxis #12 10/24/21 11/01/21 Rx mg-trimethoprim 160 mg tablet tabs nirmatrelvir 150 mg-ritonavir 100 See Rx Instructions PO PER PKG DIR 10/29/21 11/01/21 Rx mg tablets in a dose pack (EUA) 5 days #20 dose pk (Paxlovid) Exam Narrative Exam Narrative: Elderly white male in bed alert and oriented per space time circumstance in no acute respiratory distress able to speak in full sentences wearing nasal cannula 4 and half liters per minute No accessory respiratory muscle use HEENT oropharynx without exudate no evidence of thrush. Patient has upper and lower dentures. Neck supple no JVD normal carotid pulses Lungs with diffuse bilateral fine rales Heart is regular without appreciable murmur rub Abdomen soft nontender no organomegaly no bruits Extremities trace of pitting edema orders ankles no calf swelling or tenderness no peripheral cyanosis Neurologic exam grossly intact no focal motor or sensory deficits no focal cranial nerve deficits. Results Imaging Chest x-ray: report reviewed and image reviewed CT scan - chest: report reviewed and image reviewed Labs Result diagrams: 11/01/21 09:20 11/01/21 09:20 Labs: Laboratory Results - last 24 hr 11/01/21 11/01/21 11/01/21 09:20 09:20 09:25 WBC 16.77 H RBC 5.18 Hgb 15.4 Hct 48.4 MCV 93 MCH 29.7 MCHC 31.8 L RDW 14.5 H Plt Count 188 MPV 10.0 Immature Gran % 1.2 Neutrophils % 88.7 Lymphocytes % 6.4 Monocytes % 3.2 Eosinophils % 0.3 Basophils % 0.2 Nucleated RBC % 0.0 Absolute Neutrophils 14.87 H Absolute Lymphocytes 1.07 L Absolute Monocytes 0.54 Absolute Eosinophils 0.05 Absolute Basophils 0.03 PT INR APTT D-Dimer VBG Lactate Sodium 136 Potassium 3.7 Chloride 100 Carbon Dioxide 31.7 Anion Gap 4.3 BUN 22 H Creatinine 1.1 Est GFR (CKD-EPI 2020) 65.38 Glucose 75 Calcium 8.6 Magnesium 1.6 L Ferritin Total Bilirubin 0.3 AST 45 H ALT 38 Alkaline Phosphatase 142 H Lactate Dehydrogenase Creatine Kinase Troponin I 59 C-Reactive Protein Total Protein 7.2 Albumin 2.4 L Procalcitonin COVID-19 Source Not Applicable SARS-CoV-2 (PCR) Positive A Influenza Type A (PCR) Negative Influenza Type B (PCR) Negative RSV (PCR) Negative 11/01/21 11/01/21 11/01/21 11:30 11:30 11:30 WBC RBC Hgb Hct MCV MCH MCHC RDW Plt Count MPV Immature Gran % Neutrophils % Lymphocytes % Monocytes % Eosinophils % Basophils % Nucleated RBC % Absolute Neutrophils Absolute Lymphocytes Absolute Monocytes Absolute Eosinophils Absolute Basophils PT INR APTT D-Dimer VBG Lactate 1.6 H Sodium Potassium Chloride Carbon Dioxide Anion Gap BUN Creatinine Est GFR (CKD-EPI 2020) Glucose Calcium Magnesium Ferritin 750 H Total Bilirubin AST ALT Alkaline Phosphatase Lactate Dehydrogenase 563 H Creatine Kinase 53 Troponin I C-Reactive Protein Total Protein Albumin Procalcitonin < 0.1 COVID-19 Source SARS-CoV-2 (PCR) Influenza Type A (PCR) Influenza Type B (PCR) RSV (PCR) 11/01/21 11/01/21 11:30 11:30 WBC RBC Hgb Hct MCV MCH MCHC RDW Plt Count MPV Immature Gran % Neutrophils % Lymphocytes % Monocytes % Eosinophils % Basophils % Nucleated RBC % Absolute Neutrophils Absolute Lymphocytes Absolute Monocytes Absolute Eosinophils Absolute Basophils PT 9.9 INR 1.0 APTT 25.4 D-Dimer 3264 H VBG Lactate Sodium Potassium Chloride Carbon Dioxide Anion Gap BUN Creatinine Est GFR (CKD-EPI 2020) Glucose Calcium Magnesium Ferritin Total Bilirubin AST ALT Alkaline Phosphatase Lactate Dehydrogenase Creatine Kinase Troponin I C-Reactive Protein 7.03 H Total Protein Albumin Procalcitonin COVID-19 Source SARS-CoV-2 (PCR) Influenza Type A (PCR) Influenza Type B (PCR) RSV (PCR) Last Vital Signs Temp 36.7 C 11/01/21 09:06 Pulse 101 H 11/01/21 13:08 Resp 25 H 11/01/21 12:51 BP 122/82 11/01/21 12:16 Pulse Ox 95 11/01/21 12:51
[2021-11-01] MEDS: cefTRIAXone 1 GM/50 ML BAG IVPB (14:28)
[2021-11-01] MEDS: DOXYCYCLINE 100 MG in Normal Saline 100 ML IVPB (15:28)
[2021-11-01] MEDS: Famotidine 20 MG TAB PO (21:08)
[2021-11-01] MEDS: Ipratropium/Albuterol 4 GM 120 PUFF INH IH (21:15)
[2021-11-01 22:34] LABS: Legionella Ag Detection Urine Negative (Negative)
[2021-11-02] VITALS (16 sets, daily range): BP systolic 117–174; BP diastolic 74–139; PULSE 75–91; RESP 7–22; TEMP 29–36.9; O2SAT 90–97
[2021-11-02] MEDS: DOXYCYCLINE 100 MG in Normal Saline 100 ML IVPB ×2 (02:12→16:00)
[2021-11-02] MEDS: Normal Saline Flush 10 ML SYR IVP ×2 (02:13→15:03)
[2021-11-02] MEDS: Lactobacillus Acidophilus CAP 1 CAP PO (07:48)
[2021-11-02] MEDS: Omeprazole 20 MG CAPCR PO (07:48)
[2021-11-02] MEDS: Dexamethasone 4 MG TAB 6 MG PO (07:48)
[2021-11-02 08:08] LABS: Abs Immature Grans 0.12 10^3/uL (0.0-0.06); Absolute Basophil Count 0.02 10^3/uL (0.0-0.2); Absolute Lymphocyte Count 0.54 10^3/uL (1.2-3.4); Absolute Neutrophil Count 8.82 10^3/uL (1.2-6.7); Basophils % 0.2; HCT 46.7 % (40.0-50.0); Immature Grans % 1.2; Lymphocytes % 5.5; MCH 29.5 pg (27.0-33.0); MCHC 32.1 % (32.0-36.0); MCV 92 fL (80-95); MPV 10.2 fL (8.0-11.0); Monocytes % 3.1; Platelet Count 190 10^3/uL (130-400); RBC 5.09 10^6/uL (4.36-5.78); RDW 14.4 % (11.8-14.1)
[2021-11-02] MEDS: Ipratropium/Albuterol 4 GM 120 PUFF INH IH ×4 (08:22→21:12)
[2021-11-02 08:37] LABS: ALT 31 U/L (16-63); AST 34 U/L (15-37); Albumin 2.3 g/dL (3.4-5.0); Alkaline Phosphatase 108 U/L (46-116); Anion Gap 7.8 mmol/L (3-11); BUN 23 mg/dL (7-18); Bilirubin, Total 0.3 mg/dL (0.2-1.0); C-Reactive Protein 12.66 mg/dL (0.0-0.3); CO2 29.2 mmol/L (21.0-32.0); Calcium 8.4 mg/dL (8.5-10.1); Chloride 99 mmol/L (98-107); Creatine Kinase 37 U/L (39-308); Glucose 111 mg/dL (74-106); Magnesium 1.9 mg/dL (1.8-2.4); Potassium 4.4 mmol/L (3.5-5.1); Sodium 136 mmol/L (136-145); Total Protein 6.8 g/dL (6.4-8.2)
[2021-11-02] MEDS: Docusate Sodium 100 MG CAP PO (09:32)
[2021-11-02] MEDS: Polyethylene Glycol 3350 17 GM PACKET PO (09:32)
[2021-11-02] MEDS: Sulfameth/Trimeth DS TAB 1 TAB PO (10:27)
[2021-11-02 10:32] LABS: HBs Antibody, Qual Negative (See Note); HBs Antibody, Quant <3.1 mIU/mL (See Note); Hepatitis B Core Antibody Negative (Negative); Hepatitis B surface Ag Negative (Negative); Hepatitis C Ab w Rflx HCV PCR Negative (Negative)
[2021-11-02] MEDS: Tiotropium/Olodaterol 10 PUFF INHALER 2 PUFF IH (11:56)
[2021-11-02] MEDS: REMDESIVIR 100 MG in Normal Saline 250 ML 250 MG IVPB (12:23)
--- NOTE | 2021-11-02 13:29 | PDOC.CMIN ---
- If Service Date Differs Date of service: 11/02/21 Time of Service: 13:29 Care Management Initial Assess REASON FOR HOSPITALIZATION:: COVID Pneumonia PAST MEDICAL HISTORY/PAST SURGICAL HISTORY:: Medical History . Cortical cataract of both eyes. Malaria. Nuclear cataract of both eyes. Surgical History . H/O colonoscopy (~12/2019). H/O esophagogastroduodenoscopy. Heart valve replaced (~05/2016). Aortic valve. History of lung biopsy (~2005) PREVIOUS FUNCTIONAL STATUS/SOCIAL/FAMILY SUPPORTS:: Oniel is and resides in [place], alone, though his daughter lives next door. He is independent at baseline in the community. CURRENT FUNCTIONAL STATUS:: Oniel is currently on COVID precautions. CM continues to follow. Has patient been provided with info about the portal/API?: Yes Did the patient sign up for the portal?: Yes CODE STATUS:: DNR/DNI INSURANCE COVERAGE / FINANCIAL ISSUES:: Medicare. AARP CURRENT HOME/COMMUNITY SERVICES/EQUIPMENT:: Baseline 3L O2 PRIMARY CARE PHYSICIAN:: Josie Singh POTENTIAL DISCHARGE NEEDS:: Follow up appointments PATIENT/FAMILY EDUCATION NEEDS:: Review discharge instructions, discuss Ask Me Three. ANTICIPATED BARRIERS TO DISCHARGE:: None identified. TRANSPORTATION:: Via private vehicle with daughter. PLAN:: Oniel continues to be closely monitored and treated; CM continues to follow. No additional services anticipated at this time, Oniel will return home, follow up with outpatient providers and transport via private vehicle with his daughter.
[2021-11-02 14:34] LABS: Streptococcus Pneumoniae Ag, U Negative (Negative)
[2021-11-02] MEDS: Enoxaparin 40 MG/0.4 ML SYR SC (15:04)
[2021-11-02] MEDS: cefTRIAXone 1 GM/50 ML BAG IVPB (15:04)
--- NOTE | 2021-11-02 16:02 | PHA.REVIEW2 ---
Pharmacy Admission Review - Admission Clinical Review (Last Reviewed 11/01/21 @ 19:47 by Michele Garza MD) DVT prophylaxis (Acute) Acute and chronic respiratory failure with hypoxia (Acute) COVID-19 (Acute) Hypersensitivity pneumonitis (Acute) Pneumonia (Acute) Hiatal hernia with GERD without esophagitis (Acute) No Known Allergies Allergy (Verified 11/01/21 09:24) Resuscitation Status DNR/DNI Height 5 ft 9 in Weight 76.1 kg - Renal Dosing Renal Dosing: BUN 23 mg/dL (7-18) H 11/02/21 07:25 Creatinine 1.0 mg/dL (0.70-1.30) 11/02/21 07:25 Medications needing adjustments: Reviewed (crcl = 57. adjustments not needed) - Anticoagulation Anticoagulation: Hgb 15.0 g/dL (13.5-17.5) 11/02/21 07:25 Hct 46.7 % (40.0-50.0) 11/02/21 07:25 Plt Count 190 10^3/uL (130-400) 11/02/21 07:25 INR 1.0 (0.9-1.1) 11/01/21 11:30 Creatinine 1.0 mg/dL (0.70-1.30) 11/02/21 07:25 DVT Prophylaxis: Reviewed Medications: Enoxaparin Therapeutic Anticoagulation: N/A - Opiate Usage Evaluate Pain Scale/Pains Meds: N/A - Relevant Labs Sodium 136 mmol/L (136-145) 11/02/21 07:25 Potassium 4.4 mmol/L (3.5-5.1) 11/02/21 07:25 Chloride 99 mmol/L (98-107) 11/02/21 07:25 Magnesium 1.9 mg/dL (1.8-2.4) 11/02/21 07:25 C-Reactive Protein 12.66 mg/dL (0.0-0.3) H 11/02/21 07:25 Electrolytes, C-Reactive P, ESR: Reviewed - DM Control DM Control: Glucose 111 mg/dL (74-106) H 11/02/21 07:25 DM Control: N/A - Cardiac Review Cardiac Review: Troponin I 59 ng/L (<or=60) 11/01/21 09:20 BP, HR, EF%: Reviewed - Qtc Review QTc: Reviewed (QTc = 501 - caution with addition of QT-prolonging medications (casie w/voriconazole)) - IV to PO Switch IV Medications: Reviewed (continue IV meds for now) - Home Meds Home Med List reviewed: Reviewed - Current meds Current Medication Order Review: Reviewed Antibiotic Review - Pharmacy Antibiotic Review Pharmacy Antibiotic Activity: 48 hour review, Reviewed, no change (Pneumonia - empiric tx with doxycycline, ceftriaxone, voriconazole - in addition to 3 times weekly bactrim for PJP prophylaxis. pt is COVID positive - on remdesivir. Had Paxlovid. ) Relevant Labs: Relevant Labs 11/02/21 07:25 C-Reactive Protein 12.66 H
--- NOTE | 2021-11-02 17:04 | W.PM.PROGNOT ---
Date of Service Date of service: 11/02/21 Time of Service: 17:04 Assessment and Plan Assessment and plan (1) COVID-19: Status: Acute Assessment and plan: cont. Remdesivir, hold prednisone while on dexamethasone, encourage use of IS and Acapella, supportive care w/ oxygen per nasal cannula; use CPAP at night. In light of his worsening oxygen status, consider addition of Actemra Professional time spent interviewing and examining patient, discussion of goals of care with hospital team (care management, nursing and consulting professionals) was 30 minutes. (2) Pneumonia: Status: Acute Assessment and plan: empiric Rocephin, doxycycline pending workup. empiric voriconazole; repeat sputum culture and fungitell and atypical studies, encourage pulmonary toiletry (3) Acute and chronic respiratory failure with hypoxia: Status: Acute Assessment and plan: cont. home dose of Stiolto; use scheduled Combivent and prn albuterol MDI, supportive care w/ oxygen per nasal cannula; encourage mobilization and use of IS/acapella (4) Pulmonary fibrosis, unspecified: Status: Chronic (5) Hypersensitivity pneumonitis: Status: Acute Assessment and plan: prednisone taper put on hold while he is being treated for his COVID pneumonia (6) Hiatal hernia with GERD without esophagitis: Status: Acute Assessment and plan: cont. omeprazole (7) DVT prophylaxis: Status: Acute Assessment and plan: enoxaparin 40 mg SC daily Subjective Subjective Interval history since last seen: He has a decline to use CPAP but has been willing to use high flow nasal cannula. His O2 saturation was only in the high 80s on 5 L/min per nasal cannula. On 55% FiO2 and high flow nasal cannula at 40 L/min he has been made his oxygen saturation 97%. Cough is been minimally productive. Mr. Galindo is taken a realistic approach and feels that he is not sure that all these aggressive measures to prolong his life or necessary. While he does not wish to he also is indicated he does not wish to be prolonged on aggressive life support. In that light he does not want to use CPAP. Apparently his daughter uses CPAP and is familiar with it. Mr. Galindo also has been reluctant to do proning measures to improve his basilar atelectasis. For now he is willing to continue current medical treatment of his COVID-19 infection and pneumonia. Exam Narrative Exam Narrative: Ashly is sitting up in bed upright, eating dinner; he is able to talk in complete sentences w/out dyspnea but w/ any activity he gets dyspneic Lungs: bilateral diffuse rales and expiratory wheezing Heart: tachycardic and regular w/out murmur Abdomen: soft, nontender and nondistended Legs: no edema Objective Last Vital Signs Temp 36.4 C L 11/02/21 15:07 Pulse 75 11/02/21 15:07 Resp 20 11/02/21 15:07 BP 117/74 11/02/21 15:07 Pulse Ox 97 11/02/21 15:07 Laboratory Results - last 24 hr 11/01/21 11/01/21 11/01/21 11:30 13:47 13:47 WBC RBC Hgb Hct MCV MCH MCHC RDW Plt Count MPV Immature Gran % Neutrophils % Lymphocytes % Monocytes % Eosinophils % Basophils % Nucleated RBC % Absolute Neutrophils Absolute Lymphocytes Absolute Monocytes Absolute Eosinophils Absolute Basophils Sodium Potassium Chloride Carbon Dioxide Anion Gap BUN Creatinine Est GFR (CKD-EPI 2020) Glucose Calcium Magnesium Total Bilirubin AST ALT Alkaline Phosphatase Creatine Kinase C-Reactive Protein Total Protein Albumin Hep Bs Antigen Negative Hep Bs Antibody Negative Hep Bs Antibody, Quant <3.1 Hep B Core Total Ab Negative Hepatitis C Antibody Negative Urine Legionella Ag Negative Ur Strep pneumoniae Ag Negative 11/02/21 11/02/21 07:25 07:25 WBC 9.80 RBC 5.09 Hgb 15.0 Hct 46.7 MCV 92 MCH 29.5 MCHC 32.1 RDW 14.4 H Plt Count 190 MPV 10.2 Immature Gran % 1.2 Neutrophils % 90.0 Lymphocytes % 5.5 Monocytes % 3.1 Eosinophils % 0.0 Basophils % 0.2 Nucleated RBC % 0.0 Absolute Neutrophils 8.82 H Absolute Lymphocytes 0.54 L Absolute Monocytes 0.30 Absolute Eosinophils 0.00 Absolute Basophils 0.02 Sodium 136 Potassium 4.4 Chloride 99 Carbon Dioxide 29.2 Anion Gap 7.8 BUN 23 H Creatinine 1.0 Est GFR (CKD-EPI 2020) 73.30 Glucose 111 H Calcium 8.4 L Magnesium 1.9 Total Bilirubin 0.3 AST 34 ALT 31 Alkaline Phosphatase 108 Creatine Kinase 37 L C-Reactive Protein 12.66 H Total Protein 6.8 Albumin 2.3 L Hep Bs Antigen Hep Bs Antibody Hep Bs Antibody, Quant Hep B Core Total Ab Hepatitis C Antibody Urine Legionella Ag Ur Strep pneumoniae Ag
--- NOTE | 2021-11-02 21:49 | NUR.NOTE ---
Nursing Note: Pt refused CPAP this HS when offered to setup for patient. Pt ok with HFNC and tolerating settings fine, Sp02 93-95% with last few spot checks this shift. POC is to add continuous pulse oximetry once box becomes available this evening.
--- NOTE | 2021-11-02 23:21 | NUR.NOTE ---
Nursing Note: Continuous pulse oximetry applied. SP02 95%
[2021-11-03] VITALS (17 sets, daily range): BP systolic 124–138; BP diastolic 66–87; PULSE 61–100; RESP 20–24; TEMP 31–37.3; O2SAT 89–98
[2021-11-03] MEDS: DOXYCYCLINE 100 MG in Normal Saline 100 ML IVPB (01:38)
[2021-11-03] MEDS: Dexamethasone 4 MG TAB 6 MG PO (07:35)
[2021-11-03] MEDS: Omeprazole 20 MG CAPCR PO (07:35)
[2021-11-03] MEDS: Normal Saline Flush 10 ML SYR IVP ×2 (07:35→12:44)
[2021-11-03] MEDS: Lactobacillus Acidophilus CAP 1 CAP PO (07:35)
[2021-11-03] MEDS: Tiotropium/Olodaterol 10 PUFF INHALER 2 PUFF IH (07:39)
[2021-11-03] MEDS: Ipratropium/Albuterol 4 GM 120 PUFF INH IH ×4 (07:39→21:07)
[2021-11-03 08:37] LABS: Abs Immature Grans 0.11 10^3/uL (0.0-0.06); Absolute Basophil Count 0.01 10^3/uL (0.0-0.2); Absolute Neutrophil Count 11.46 10^3/uL (1.2-6.7); Basophils % 0.1; HCT 45.8 % (40.0-50.0); Immature Grans % 0.9; Lymphocytes % 3.2; MCH 29.5 pg (27.0-33.0); MCHC 32.8 % (32.0-36.0); MCV 90 fL (80-95); Monocytes % 3.5; Neutrophils % 92.3; Platelet Count 221 10^3/uL (130-400); RBC 5.08 10^6/uL (4.36-5.78); RDW 14.5 % (11.8-14.1); RDW-SD 47.8 fL; WBC 12.42 10^3/uL (4.4-10.8)
[2021-11-03 08:40] LABS: Absolute Monocyte Count 0.43 10^3/uL (0.1-0.8)
[2021-11-03 09:02] LABS: ALT 29 U/L (16-63); AST 31 U/L (15-37); Albumin 2.4 g/dL (3.4-5.0); Alkaline Phosphatase 126 U/L (46-116); Anion Gap 8.4 mmol/L (3-11); BUN 32 mg/dL (7-18); Bilirubin, Total 0.3 mg/dL (0.2-1.0); C-Reactive Protein 7.37 mg/dL (0.0-0.3); CO2 26.6 mmol/L (21.0-32.0); CREATININE 1.2 mg/dL (0.70-1.30); Calcium 8.4 mg/dL (8.5-10.1); Chloride 100 mmol/L (98-107); Creatine Kinase 36 U/L (39-308); Estimated GFR 58.89 (mL/min/1.73m2); Glucose 161 mg/dL (74-106); Potassium 4.6 mmol/L (3.5-5.1); Sodium 135 mmol/L (136-145); Total Protein 6.8 g/dL (6.4-8.2)
[2021-11-03] MEDS: REMDESIVIR 100 MG in Normal Saline 250 ML 250 MG IVPB (12:44)
[2021-11-03] MEDS: Doxycycline Hyclate 100 MG CAP PO ×2 (12:44→21:07)
--- NOTE | 2021-11-03 12:51 | W.PM.PROGNOT ---
Date of Service Date of service: 11/03/21 Time of Service: 12:52 Assessment and Plan Assessment and plan (1) COVID-19: Status: Acute Assessment and plan: cont. Remdesivir (d#3/5, however, I will probably extend this given his immunocompromised state); decadron 6 mg daily; given his fungal pneumonia I would not ordinarily give him steroids but he has been chronically on prednisone (he was just recently put on a taper schedule and was moving from 30 mg/d to 20 mg/d) and therefore he needs the decadron. Given that his oxygen requirements have increased above his baseline, I think the decadron is justified to treat any inflammation and to meet his baseline steroid needs. I will add Baricitinib to his regimen. Professional time spent interviewing and examining patient, discussion of goals of care with hospital team (care management, nursing and consulting professionals) was 30 minutes. (2) Pneumonia: Status: Acute Assessment and plan: empiric Rocephin, doxycycline pending workup. empiric voriconazole; repeat sputum culture and fungitell and atypical studies, encourage pulmonary toiletry\ Follow up Strep and Legionella urine antigen have been negative. His repeat sputum only grew heavy growth of NOF and rare fungus. Repeat Fungitel is pending but was positive on his last admission. Initial procalcitonin was normal. If repeat procalcitonin is normal then I would dc both his doxycycline and Rocephin. (3) Acute and chronic respiratory failure with hypoxia: Status: Acute Assessment and plan: cont. home dose of Stiolto; use scheduled Combivent and prn albuterol MDI, supportive care w/ oxygen per nasal cannula; encourage mobilization and use of IS/acapella (4) Pulmonary fibrosis, unspecified: Status: Chronic (5) Hypersensitivity pneumonitis: Status: Acute Assessment and plan: prednisone taper put on hold while he is being treated for his COVID pneumonia and remains on decadron 6 mg daily (30 mg prednisone would be equivalent to 5 mg decadron) Patient remains on Bactrim DS 3 x per week while he is on higher dose steroids (can dc once he is below 20 mg/d) (6) Hiatal hernia with GERD without esophagitis: Status: Acute Assessment and plan: cont. omeprazole (7) DVT prophylaxis: Status: Acute Assessment and plan: enoxaparin 40 mg SC daily Subjective Subjective Interval history since last seen: Ashly is discouraged that he has not made more progress like he did last admission when he responded almost immediately to the antibiotics. I explained to him that he has a few processes working against him including his background chronic lung disease from his pulmonary fibrosis and hypersensitivity pneumonitis and now COVID-19 infection and he has what I believe to be a fungal pneumonia. He says that his cough is not as productive as it was initially. He has no hemoptysis and not able to produce any thick purulent sputum. No chest pains. Ashly does not like the CPAP and has decided that he will not use it and therefore we have discontinued it and taken it out of his room. He remains on HFNC at 40 Lpm and FIO2 OF 49%. Exam Narrative Exam Narrative: Alert and oriented, sitting up at the bedside (he just finished lunch; he has been sitting in the chair all morning according to the patient LUngs: bibasilar fine rales, upper cooper are clear Heart: RRR Abdomen: soft, nontender Legs: no edema Objective Last Vital Signs Temp 36.0 C L 11/03/21 07:25 Pulse 61 11/03/21 07:29 Resp 24 11/03/21 07:25 BP 138/87 11/03/21 07:25 Pulse Ox 92 11/03/21 07:33 Laboratory Results - last 24 hr 11/01/21 11/03/21 11/03/21 13:47 08:15 08:15 WBC 12.42 H RBC 5.08 Hgb 15.0 Hct 45.8 MCV 90 MCH 29.5 MCHC 32.8 RDW 14.5 H Plt Count 221 MPV 10.0 Immature Gran % 0.9 Neutrophils % 92.3 Lymphocytes % 3.2 Monocytes % 3.5 Eosinophils % 0.0 Basophils % 0.1 Nucleated RBC % 0.0 Absolute Neutrophils 11.46 H Absolute Lymphocytes 0.40 L Absolute Monocytes 0.43 Absolute Eosinophils 0.00 Absolute Basophils 0.01 Sodium 135 L Potassium 4.6 Chloride 100 Carbon Dioxide 26.6 Anion Gap 8.4 BUN 32 H Creatinine 1.2 Est GFR (CKD-EPI 2020) 58.89 Glucose 161 H Calcium 8.4 L Total Bilirubin 0.3 AST 31 ALT 29 Alkaline Phosphatase 126 H Creatine Kinase 36 L C-Reactive Protein 7.37 H Total Protein 6.8 Albumin 2.4 L Ur Strep pneumoniae Ag Negative
[2021-11-03 13:50] LABS: Procalcitonin < 0.1 ng/mL
[2021-11-03] MEDS: cefTRIAXone 1 GM/50 ML BAG IVPB (14:31)
[2021-11-03] MEDS: Enoxaparin 40 MG/0.4 ML SYR SC (14:31)
[2021-11-04] VITALS (15 sets, daily range): BP systolic 127–146; BP diastolic 79–90; PULSE 57–99; RESP 18–26; TEMP 31–36.3; O2SAT 91–98
[2021-11-04] MEDS: Omeprazole 20 MG CAPCR PO (08:07)
[2021-11-04] MEDS: Dexamethasone 4 MG TAB 6 MG PO (08:07)
[2021-11-04] MEDS: Doxycycline Hyclate 100 MG CAP PO (08:07)
[2021-11-04] MEDS: Lactobacillus Acidophilus CAP 1 CAP PO (08:07)
[2021-11-04] MEDS: Ipratropium/Albuterol 4 GM 120 PUFF INH IH ×4 (08:08→19:58)
[2021-11-04] MEDS: Tiotropium/Olodaterol 10 PUFF INHALER 2 PUFF IH (08:08)
[2021-11-04 08:57] LABS: Abs Immature Grans 0.15 10^3/uL (0.0-0.06); Absolute Lymphocyte Count 0.35 10^3/uL (1.2-3.4); Absolute Neutrophil Count 13.36 10^3/uL (1.2-6.7); Basophils % 0.1; HCT 47.2 % (40.0-50.0); Lymphocytes % 2.4; MCH 29.2 pg (27.0-33.0); MCHC 31.8 % (32.0-36.0); MCV 92 fL (80-95); Monocytes % 5.3; Neutrophils % 91.2; Platelet Count 241 10^3/uL (130-400); RBC 5.13 10^6/uL (4.36-5.78); RDW 14.5 % (11.8-14.1); RDW-SD 49.7 fL; WBC 14.65 10^3/uL (4.4-10.8)
[2021-11-04 09:00] LABS: Absolute Basophil Count 0.01 10^3/uL (0.0-0.2); Absolute Monocyte Count 0.78 10^3/uL (0.1-0.8)
[2021-11-04 09:16] LABS: ALT 34 U/L (16-63); AST 34 U/L (15-37); Albumin 2.4 g/dL (3.4-5.0); Alkaline Phosphatase 139 U/L (46-116); Anion Gap 8.3 mmol/L (3-11); BUN 36 mg/dL (7-18); Bilirubin, Total 0.3 mg/dL (0.2-1.0); C-Reactive Protein 4.77 mg/dL (0.0-0.3); CO2 26.7 mmol/L (21.0-32.0); CREATININE 1.1 mg/dL (0.70-1.30); Calcium 8.5 mg/dL (8.5-10.1); Chloride 101 mmol/L (98-107); Creatine Kinase 30 U/L (39-308); Estimated GFR 65.38 (mL/min/1.73m2); Glucose 126 mg/dL (74-106); LDH 514 U/L (85-227); Potassium 4.5 mmol/L (3.5-5.1); Sodium 136 mmol/L (136-145); Total Protein 6.9 g/dL (6.4-8.2)
[2021-11-04 09:28] LABS: D-Dimer 3323 ng/mlFEU (<500)
[2021-11-04 09:42] LABS: Ferritin 570 ng/mL (26-388)
[2021-11-04] MEDS: Normal Saline Flush 10 ML SYR IVP ×2 (11:54→19:59)
[2021-11-04] MEDS: REMDESIVIR 100 MG in Normal Saline 250 ML 250 MG IVPB (11:54)
[2021-11-04 14:03] LABS: HIV-1/2 Ag & Ab Screen Negative (Negative)
[2021-11-04] MEDS: Enoxaparin 40 MG/0.4 ML SYR SC (14:08)
[2021-11-04 16:39] LABS: Mycoplasma Pneumoniae PCR Negative; Specimen source Sputum
--- NOTE | 2021-11-04 16:59 | PGE_ITS ---
Date of Service Date of service: 11/04/21 Time of Service: 16:59 Assessment and Plan Assessment and plan (1) COVID-19: Status: Acute Assessment and plan: cont. Remdesivir (d#4/5, however, I will probably extend this given his immunocompromised state); decadron 6 mg daily; given his fungal pneumonia I would not ordinarily give him steroids but he has been chronically on prednisone (he was just recently put on a taper schedule and was moving from 30 mg/d to 20 mg/d) and therefore he needs the decadron. Given that his oxygen requirements have increased above his baseline, I think the decadron is justified to treat any inflammation and to meet his baseline steroid needs. I have held off Baricitinib d/t his fungal pneumonia. I have added lasix to his regimen givne his peripheral edema (probably related to his high dose steroids) Professional time spent interviewing and examining patient, discussion of goals of care with hospital team (care management, nursing and consulting professionals) was 20 minutes. (2) Pneumonia: Status: Acute Assessment and plan: Rocephin and doxycycline discontiued as his repeat procalcitonin remains negative and antibiotics have made no difference in his care. Continue Voriconazole as his repeat sputum is still growing rare fungus., encourage pulmonary toiletry Follow up Strep and Legionella urine antigen have been negative. His repeat sputum only grew heavy growth of NOF and rare fungus. Repeat Fungitel is pending but was positive on his last admission. (3) Acute and chronic respiratory failure with hypoxia: Status: Acute Assessment and plan: cont. home dose of Stiolto; use scheduled Combivent and prn albuterol MDI, supportive care w/ oxygen per nasal cannula; encourage mobilization and use of IS/acapella (4) Pulmonary fibrosis, unspecified: Status: Chronic (5) Hypersensitivity pneumonitis: Status: Acute Assessment and plan: prednisone taper put on hold while he is being treated for his COVID pneumonia and remains on decadron 6 mg daily (30 mg prednisone would be equivalent to 5 mg decadron) Patient remains on Bactrim DS 3 x per week while he is on higher dose steroids (can dc once he is below 20 mg/d) (6) Hiatal hernia with GERD without esophagitis: Status: Acute Assessment and plan: cont. omeprazole (7) DVT prophylaxis: Status: Acute Assessment and plan: enoxaparin 40 mg SC daily Subjective Subjective Interval history since last seen: Ashly states that he still feels weak, has not energy, still dyspneic w/ any a ctivity although he has tolerated sitting up in his chair. He is coughing more purulent sputum, brown/huynh and thick. Recent sputum has shown repeat fungus. He is on Vfen. I have stopped his antibiotics as his procalcitonin remains normal. I am still awaiting the rest of his fungal studies. He is on HFNC at 45 LPM and 45% FIO2. Exam Narrative Exam Narrative: He is alert, oriented x 3 No acute respiratory distress, not using accessory respiratory muscles and he is able to carry a prolonged conversations Lungs: diffuse bilateral dry cellophane type rales; no rhonchi and no wheezing Heart: RRR Abdomen: soft, nontender Legs: 1+ edema Objective Last Vital Signs Temp 36.3 C L 11/04/21 12:15 Pulse 92 H 11/04/21 12:15 Resp 24 11/04/21 12:15 BP 131/81 11/04/21 12:15 Pulse Ox 91 L 11/04/21 12:15 Laboratory Results - last 24 hr 11/01/21 11/03/21 11/04/21 07:25 Unknown 07:53 WBC RBC Hgb Hct MCV MCH MCHC RDW Plt Count MPV Immature Gran % Neutrophils % Lymphocytes % Monocytes % Eosinophils % Basophils % Nucleated RBC % Absolute Neutrophils Absolute Lymphocytes Absolute Monocytes Absolute Eosinophils Absolute Basophils D-Dimer Sodium 136 Potassium 4.5 Chloride 101 Carbon Dioxide 26.7 Anion Gap 8.3 BUN 36 H Creatinine 1.1 Est GFR (CKD-EPI 2020) 65.38 Glucose 126 H Calcium 8.5 Ferritin 570 H Total Bilirubin 0.3 AST 34 ALT 34 Alkaline Phosphatase 139 H Lactate Dehydrogenase 514 H Creatine Kinase 30 L C-Reactive Protein 4.77 H Total Protein 6.9 Albumin 2.4 L HIV 1&2 Ag/Ab, 4th Gen Negative Add-On Test Request Cancelled 11/04/21 11/04/21 07:53 07:53 WBC 14.65 H RBC 5.13 Hgb 15.0 Hct 47.2 MCV 92 MCH 29.2 MCHC 31.8 L RDW 14.5 H Plt Count 241 MPV 10.0 Immature Gran % 1.0 Neutrophils % 91.2 Lymphocytes % 2.4 Monocytes % 5.3 Eosinophils % 0.0 Basophils % 0.1 Nucleated RBC % 0.0 Absolute Neutrophils 13.36 H Absolute Lymphocytes 0.35 L Absolute Monocytes 0.78 Absolute Eosinophils 0.00 Absolute Basophils 0.01 D-Dimer 3323 H Sodium Potassium Chloride Carbon Dioxide Anion Gap BUN Creatinine Est GFR (CKD-EPI 2020) Glucose Calcium Ferritin Total Bilirubin AST ALT Alkaline Phosphatase Lactate Dehydrogenase Creatine Kinase C-Reactive Protein Total Protein Albumin HIV 1&2 Ag/Ab, 4th Gen Add-On Test Request
[2021-11-05] VITALS (9 sets, daily range): BP systolic 115–152; BP diastolic 75–94; PULSE 80–117; RESP 18–28; TEMP 31–36.2; O2SAT 91–95
[2021-11-05 07:16] LABS: Abs Immature Grans 0.14 10^3/uL (0.0-0.06); Absolute Basophil Count 0.02 10^3/uL (0.0-0.2); Absolute Monocyte Count 0.58 10^3/uL (0.1-0.8); Basophils % 0.2; HCT 46.5 % (40.0-50.0); HGB 14.8 g/dL (13.5-17.5); Immature Grans % 1.2; Lymphocytes % 2.7; MCH 29.2 pg (27.0-33.0); MCHC 31.8 % (32.0-36.0); MCV 92 fL (80-95); Monocytes % 4.8; Neutrophils % 91.1; Platelet Count 224 10^3/uL (130-400); RBC 5.07 10^6/uL (4.36-5.78); RDW 14.6 % (11.8-14.1); RDW-SD 49.2 fL; WBC 12.05 10^3/uL (4.4-10.8)
[2021-11-05 07:20] LABS: Absolute Lymphocyte Count 0.33 10^3/uL (1.2-3.4); Absolute Neutrophil Count 10.98 10^3/uL (1.2-6.7)
[2021-11-05 07:50] LABS: ALT 36 U/L (16-63); AST 36 U/L (15-37); Albumin 2.3 g/dL (3.4-5.0); Alkaline Phosphatase 124 U/L (46-116); Anion Gap 7.1 mmol/L (3-11); BUN 34 mg/dL (7-18); Bilirubin, Total 0.3 mg/dL (0.2-1.0); C-Reactive Protein 2.99 mg/dL (0.0-0.3); CO2 27.9 mmol/L (21.0-32.0); CREATININE 1.1 mg/dL (0.70-1.30); Calcium 8.6 mg/dL (8.5-10.1); Chloride 102 mmol/L (98-107); Creatine Kinase 31 U/L (39-308); Estimated GFR 65.38 (mL/min/1.73m2); Glucose 142 mg/dL (74-106); LDH 519 U/L (85-227); Potassium 4.6 mmol/L (3.5-5.1); Sodium 137 mmol/L (136-145); Total Protein 6.4 g/dL (6.4-8.2)
[2021-11-05] MEDS: Furosemide 20 MG TAB PO ×2 (08:02→15:47)
[2021-11-05] MEDS: Omeprazole 20 MG CAPCR PO (08:03)
[2021-11-05] MEDS: Lactobacillus Acidophilus CAP 1 CAP PO (08:03)
[2021-11-05] MEDS: Dexamethasone 4 MG TAB 6 MG PO (08:03)
[2021-11-05] MEDS: Ipratropium/Albuterol 4 GM 120 PUFF INH IH ×3 (09:15→15:47)
[2021-11-05] MEDS: Tiotropium/Olodaterol 10 PUFF INHALER 2 PUFF IH (09:16)
[2021-11-05] MEDS: REMDESIVIR 100 MG in Normal Saline 250 ML 250 MG IVPB (11:29)
[2021-11-05] MEDS: Sulfameth/Trimeth DS TAB 1 TAB PO (11:29)
[2021-11-05] MEDS: Normal Saline Flush 10 ML SYR IVP ×2 (11:29→20:05)
--- NOTE | 2021-11-05 12:59 | CMPROGNOTE_ITS ---
- If Service Date Differs Date of service: 11/05/21 Time of Service: 13:00 Care Management Progress Note S/O: Remains on remdesivir, and voriconazole as his repeat sputum is still growing rare fungus, encourage pulmonary toiletry, per MD. He continues to be treated with steroids and followed closely by respiratory, encouraging mobilization and use of IS/acapella. CM continues to follow. A: 86 year old male re-admitted to [facility] 11/01/21 for COVID Pneumonia. P: Oniel continues to be closely monitored and treated; CM continues to follow. No additional services anticipated at this time, Oniel will return home, follow up with outpatient providers and transport via private vehicle with his daughter.
[2021-11-05] MEDS: Enoxaparin 40 MG/0.4 ML SYR SC (13:26)
[2021-11-05 14:23] LABS: Fungitell Qualitative Positive (Negative); Fungitell Quantitative Value 215 pg/mL (<60 pg/mL)
--- NOTE | 2021-11-05 19:32 | PUCON_ITS ---
General Date Of Service Date of service: 11/05/21 Time of Service: 12:30 Reason for Consult: Hypoxic respiratory failure Assessment and Plan Assessment and plan (1) COVID-19: Status: Acute (2) Acute and chronic respiratory failure with hypoxia: Status: Acute (3) Hypersensitivity pneumonitis: Status: Acute (4) Fungal pneumonia: Status: Acute Assessment and plan: This is an 86 yo man with progressive chronic hypersensitivity pneumonitis who was on chronic prednisone who was recently admitted for pneumonia who recovered very quickly from this and discharged home. He had a follow up visit with me planned but prior to this he returned with a COVID infection and his previously drawn Fungitell was found to be positive. This was repeated and it again returned positive. His sputume cultures have also returned positive for fungus (awaiting speciation). He is being covered empirically with voriconazole. He is also receiving Decadron and remdesivir. I do agree that voriconazole is likely the best empiric option to cover the most likely culprits. Hopefully we will be able to get speciation from the sputum samples as he is too tenuous for bronchoscopy at this time. Fungal Pneumonia - agree with voriconazole - recommend voriconazole level - await speciation and resistances - Quantiferon - await aspergillus antigen and other non invasive serologies - too tenuous for bronch currently Hypoxic respiratory failure - HFNC during the day - CPAP at night - albuterol QID - Stiolto daily COVID - remdesivir - on Decadron - ideally will titrate this down quickly Chronic hypersensitivity pneumonitis - was on chronic steroids - once COVID resolving, I would like to titrate the steroids, especially with the fungal pneumonia History of Present Illness Narrative: This is an 86 yo man who is admitted after a recent hospitalization through to be pneumonia with a fast recovery after one day of antibiotics. He was discharged. He returns after feeling unwell and found to have COVID. In there interim his Fungitell did return positive as well, but with the remainder of his non invasive work up negative. I opted not to bronch him given his clinical improvement, age and baseline significant lung disease. His repeat Fungitell returns positive once again, and higher than the previous result. He has been started on voriconazole. His sputum cultures have also returned with fungus' but no speciation has been resulted. Dr. Garza has requested this however. He is also being treated for COVID with Decadron 6mg (has been on chronic steroids for many many years for an underlying chronic hypersensitivity pneumonitis) and remdesivir. He is feeling short of breath, particularly with movement. He is requiring HFNC and has not been using CPAP at night as initially he did not want to, but after some counselling as to the reasoning behind it, he is in agreement to try it. Review of Systems All systems reviewed & are unremarkable except as noted in HPI and below PFSH All Active Problems (Updated 11/05/21 @ 19:42 by Marla Segura MD) Fungal pneumonia (Acute) DVT prophylaxis (Acute) Acute and chronic respiratory failure with hypoxia (Acute) COVID-19 (Acute) Chronic kidney disease, stage 3 (Acute) Iatrogenic hyperthyroidism (Acute) Prediabetes (Acute) Pulmonary nodules (Acute) Hypersensitivity pneumonitis (Acute) Edema of both lower extremities (Acute) Chronic respiratory failure with hypoxia (Chronic) Pneumonia (Acute) Pulmonary fibrosis, unspecified (Chronic ~07/2021) 08/09/21 Dr aCm Pulmonology, [facility] Chronic diarrhea (Acute ~03/2021) 04/12/21 [facility]. Oscar WANG Sciatica (Acute) Hiatal hernia with GERD without esophagitis (Acute) Carpal tunnel syndrome (Acute) Mixed hyperlipidemia (Acute) Testicular hypofunction (Acute) Anemia (Chronic) Sensorineural hearing loss of both ears (Acute) Hypothyroidism (Chronic) Pulmonary fibrosis (Acute) Aortic valve replaced (Acute ~05/21/16) Hypertension (Chronic) Status post cataract extraction and insertion of intraocular lens of left eye (Chronic 01/05/18) Status post cataract extraction and insertion of intraocular lens of right eye (Chronic 01/05/18) Optic disc cupping (Chronic) Epiretinal membrane (ERM) of left eye (Chronic) Hypertensive retinopathy, grade 2 (Chronic) Medical History Cortical cataract of both eyes Malaria Nuclear cataract of both eyes Surgical History H/O colonoscopy (~12/2019) H/O esophagogastroduodenoscopy Heart valve replaced (~05/2016) Aortic valve History of lung biopsy (~2005) Family History Father Heart attack Mother Heart attack Daughter Cancer Hodgkin's Lymphoma Grandson Cancer synovial sarcoma Social History Smoking/Tobacco Use Status: Former Tobacco Use Quit Date: 02/17/09 Tobacco: How many years used: 3 Smoking risk assessment performed?: Yes Alcohol Intake: never Drug use: Never Substance use type: does not use Adopted: No Foster care: No Household members: family Housing: house Number of Children: 4 number of grandchildren: 17 Communication Needs: Hard of Hearing Do you need help understanding health information?: Often Sexually active: No What is your relationship status?: Panel score (0-1 are the most socially isolated patients): 0 Ceci/Christianity: Alevism Do you feel safe at home: Yes Do you feel safe in your relationship?: Yes Visit Medication and Allergies Active Medications Generic Name Dose Route Start Last Admin Trade Name Freq PRN Reason Stop Dose Admin Acetaminophen 0 mg 11/01/21 12:06 Acetaminophen 325 Mg Tab PO Q4H PRN PRN Acidophilus/Pectin 1 cap 11/02/21 08:30 11/05/21 08:03 Lactobacillus Acidophilus Cap PO 1 cap DAILY MARIBEL Administration Al Hydrox/Mg Hydrox/Simethicone 30 ml 11/01/21 12:06 Mylanta Suspension 30 Ml Cup PO Q2H PRN PRN Albuterol/Ipratropium 1 puff 11/01/21 20:00 11/05/21 15:47 Ipratropium/Albuterol 4 Gm 120 Puff Inh IH 1 puff QID MARIBEL Administration Device 1 each 11/01/21 20:00 Inhaler, Assist Device DIRECTED MARIBEL Dexamethasone 6 mg 11/04/21 08:30 11/05/21 08:03 Dexamethasone 4 Mg Tab PO 6 mg DAILY MARIBEL Administration Dimethicone/Zinc Oxide 0 gm 11/01/21 12:00 Chantal Protect Cream 142 Gm Tube TP PRN PRN Docusate Sodium 100 mg 11/01/21 12:06 11/02/21 09:32 Docusate Sodium 100 Mg Cap PO 100 mg TID PRN PRN Administration Enoxaparin Sodium 40 mg 11/01/21 14:00 11/05/21 13:26 Enoxaparin 40 Mg/0.4 Ml Syr SC 40 mg Q24H MARIBEL Administration Furosemide 20 mg 11/05/21 08:30 11/05/21 15:47 Furosemide 20 Mg Tab PO 20 mg BID@0830,1600 MARIBEL Administration Guaifenesin 600 mg 11/01/21 19:37 Guaifenesin 600 Mg Tabcr PO BID PRN PRN Cough Sodium Chloride 500 mls @ 0 mls/hr 11/01/21 12:00 Saline 500ml Bag IV PRN PRN As Directed Remdesivir 100 mg/ Sodium 250 mls @ 250 mls/hr 11/06/21 12:00 Chloride IVPB 11/09/21 12:59 Q24H MARIBEL IV Miscellaneous Supplies 1 each 11/01/21 12:00 Iv Access IV DIRECTED MARIBEL Magnesium Hydroxide 30 ml 11/01/21 12:06 Milk Of Magnesia 30 Ml Cup PO DAILY PRN PRN Omeprazole 20 mg 11/02/21 08:30 11/05/21 08:03 Omeprazole 20 Mg Capcr PO 20 mg DAILY MARIBEL Administration Polyethylene Glycol 17 gm 11/01/21 12:06 11/02/21 09:32 Polyethylene Glycol 3350 17 Gm Packet PO 17 gm DAILY PRN PRN Administration Constipation Sodium Chloride 0 ml 11/01/21 12:00 11/05/21 11:29 Normal Saline Flush 10 Ml Syr IVP 20 ml PRN PRN Administration Tiotropium [place]/Olodaterol 2 puff 11/02/21 08:30 11/05/21 09:16 Tiotropium/Olodaterol 10 Puff Inhaler IH 2 inh DAILY MARIBEL Administration Trimethoprim/Sulfamethoxazole 1 tab 11/02/21 10:00 11/05/21 11:29 Sulfameth/Trimeth Ds Tab PO 1 tab MoWeFr MARIBEL Administration Voriconazole 300 mg 11/02/21 20:00 11/05/21 08:02 Voriconazole 200 Mg Tab PO 300 mg Q12H MARIBEL Administration Allergies No Known Allergies Allergy (Verified 11/01/21 09:24) Exam Narrative Exam Narrative: Gen: NAD, normal respiratory effort, well-nourished HENT: PERRL, nasal turbinates normal without erythema or inflammation, moist oral mucosa, Mallampati 2, No LAD or JVD Chest: No respiratory distress, normal appearance of chest, clear to auscultat ion bilaterally, bilateral crackles, no wheezes, normal inspiratory effort Heart: regular rate and rhythym, no murmurs, rubs or gallops Abdomen: Non-distended, soft, non tender Extremities: No clubbing, 2+ edema, cyanosis, rashes Neuro: AAOx3 , non focal Psych: cooperative, appropriate mental affect Results Last Vital Signs Temp 36.2 C L 11/05/21 15:52 Pulse 86 11/05/21 15:52 Resp 26 H 11/05/21 15:52 BP 128/75 11/05/21 15:52 Pulse Ox 92 11/05/21 15:52 Labs Result diagrams: 11/05/21 07:00 11/05/21 07:00 Labs: Laboratory Results - last 24 hr 11/01/21 11/02/21 11/02/21 07:25 07:25 12:20 WBC RBC Hgb Hct MCV MCH MCHC RDW Plt Count MPV Immature Gran % Neutrophils % Lymphocytes % Monocytes % Eosinophils % Basophils % Nucleated RBC % Absolute Neutrophils Absolute Lymphocytes Absolute Monocytes Absolute Eosinophils Absolute Basophils Sodium Potassium Chloride Carbon Dioxide Anion Gap BUN Creatinine Est GFR (CKD-EPI 2020) Glucose Calcium Total Bilirubin AST ALT Alkaline Phosphatase Lactate Dehydrogenase Creatine Kinase C-Reactive Protein Total Protein Albumin M. pneumoniae Source Sputum M. pneumoniae (PCR) Negative Aspergillus Ag (EIA) <0.500 B-(1,3)-D-Glucan Quant 215 A B-(1,3)-D-Glucan Qual Positive A 11/05/21 11/05/21 07:00 07:00 WBC 12.05 H RBC 5.07 Hgb 14.8 Hct 46.5 MCV 92 MCH 29.2 MCHC 31.8 L RDW 14.6 H Plt Count 224 MPV 10.0 Immature Gran % 1.2 Neutrophils % 91.1 Lymphocytes % 2.7 Monocytes % 4.8 Eosinophils % 0.0 Basophils % 0.2 Nucleated RBC % 0.0 Absolute Neutrophils 10.98 H Absolute Lymphocytes 0.33 L Absolute Monocytes 0.58 Absolute Eosinophils 0.00 Absolute Basophils 0.02 Sodium 137 Potassium 4.6 Chloride 102 Carbon Dioxide 27.9 Anion Gap 7.1 BUN 34 H Creatinine 1.1 Est GFR (CKD-EPI 2020) 65.38 Glucose 142 H Calcium 8.6 Total Bilirubin 0.3 AST 36 ALT 36 Alkaline Phosphatase 124 H Lactate Dehydrogenase 519 H Creatine Kinase 31 L C-Reactive Protein 2.99 H Total Protein 6.4 Albumin 2.3 L M. pneumoniae Source M. pneumoniae (PCR) Aspergillus Ag (EIA) B-(1,3)-D-Glucan Quant B-(1,3)-D-Glucan Qual
--- NOTE | 2021-11-05 19:41 | W.PM.PROGNOT ---
Date of Service Date of service: 11/05/21 Time of Service: 19:41 Assessment and Plan Assessment and plan (1) COVID-19: Status: Acute Assessment and plan: cont. Remdesivir d#5/5 but will extend this d/t his immunocompromised state. I have not added Baricitinib d/t his fungal pneumonia. cont. decadron 6 mg daily. continue HFNC. I had previosuly ordered CPAP but he refused this. Ideally he should not be on steroids in setting of fungal pneumonia but he has been chronically on prednisone and was on a taper when he got COVID. Dr. Segura will determine his steroid taper once he has improved from the COVID. Professional time spent interviewing and examining patient, discussion of goals of care with hospital team (care management, nursing and consulting professionals) was 15 minutes. (2) Pneumonia: Status: Acute Assessment and plan: repeat fungitell came back positive at higher titer than the previous one. (215 compared to 109). I spoke w/ lab and asked them to try to speciate the fungus so we can find out if this is an Aspergillus or some idea as to the type so we can target his antifungal. She indicated to me that it is not a Mayra. Patient currently is on Voriconazole w/ level pending. The remainder of his fungal studies is pending. (3) Acute and chronic respiratory failure with hypoxia: Status: Acute Assessment and plan: cont. home dose of Stiolto; use scheduled Combivent and prn albuterol MDI, supportive care w/ oxygen per nasal cannula; encourage mobilization and use of IS/acapella (4) Pulmonary fibrosis, unspecified: Status: Chronic (5) Hypersensitivity pneumonitis: Status: Acute Assessment and plan: prednisone taper put on hold while he is being treated for his COVID pneumonia and remains on decadron 6 mg daily (30 mg prednisone would be equivalent to 5 mg decadron) Patient remains on Bactrim DS 3 x per week while he is on higher dose steroids (can dc once he is below 20 mg/d) (6) Hiatal hernia with GERD without esophagitis: Status: Acute Assessment and plan: cont. omeprazole (7) DVT prophylaxis: Status: Acute Assessment and plan: enoxaparin 40 mg SC daily Subjective Subjective Interval history since last seen: Ashly has no new complaints. Cough is not as productive as it had been. He does not seem as dyspneic as yesterday. He sat up for the afternoon and his dinner. He appreciates the visit from Dr. Segura this morning. I explained to Ashly that his repeat fungal studies have confirmed that he has a fungal pneumonia in the setting of his COVID infection but that we have him on a strong antifungal and that he needs to understand that this will take time to clear, it is not like last time when he improved almost overnight when he was put on antibiotics. Exam Narrative Exam Narrative: He is alert and oriented. He is sitting up in his chair this evening having finished dinner Lungs: bibasilar rales; no rhonchi or wheezing Heart: RRR Abdomen: benign. Legs: 1+ pitting edema Objective Last Vital Signs Temp 36.2 C L 11/05/21 15:52 Pulse 86 11/05/21 15:52 Resp 26 H 11/05/21 15:52 BP 128/75 11/05/21 15:52 Pulse Ox 92 11/05/21 15:52 Laboratory Results - last 24 hr 11/01/21 11/02/21 11/02/21 07:25 07:25 12:20 WBC RBC Hgb Hct MCV MCH MCHC RDW Plt Count MPV Immature Gran % Neutrophils % Lymphocytes % Monocytes % Eosinophils % Basophils % Nucleated RBC % Absolute Neutrophils Absolute Lymphocytes Absolute Monocytes Absolute Eosinophils Absolute Basophils Sodium Potassium Chloride Carbon Dioxide Anion Gap BUN Creatinine Est GFR (CKD-EPI 2020) Glucose Calcium Total Bilirubin AST ALT Alkaline Phosphatase Lactate Dehydrogenase Creatine Kinase C-Reactive Protein Total Protein Albumin M. pneumoniae Source Sputum M. pneumoniae (PCR) Negative Aspergillus Ag (EIA) <0.500 B-(1,3)-D-Glucan Quant 215 A B-(1,3)-D-Glucan Qual Positive A 11/05/21 11/05/21 07:00 07:00 WBC 12.05 H RBC 5.07 Hgb 14.8 Hct 46.5 MCV 92 MCH 29.2 MCHC 31.8 L RDW 14.6 H Plt Count 224 MPV 10.0 Immature Gran % 1.2 Neutrophils % 91.1 Lymphocytes % 2.7 Monocytes % 4.8 Eosinophils % 0.0 Basophils % 0.2 Nucleated RBC % 0.0 Absolute Neutrophils 10.98 H Absolute Lymphocytes 0.33 L Absolute Monocytes 0.58 Absolute Eosinophils 0.00 Absolute Basophils 0.02 Sodium 137 Potassium 4.6 Chloride 102 Carbon Dioxide 27.9 Anion Gap 7.1 BUN 34 H Creatinine 1.1 Est GFR (CKD-EPI 2020) 65.38 Glucose 142 H Calcium 8.6 Total Bilirubin 0.3 AST 36 ALT 36 Alkaline Phosphatase 124 H Lactate Dehydrogenase 519 H Creatine Kinase 31 L C-Reactive Protein 2.99 H Total Protein 6.4 Albumin 2.3 L M. pneumoniae Source M. pneumoniae (PCR) Aspergillus Ag (EIA) B-(1,3)-D-Glucan Quant B-(1,3)-D-Glucan Qual
[2021-11-05] MEDS: Albuterol HFA 8 GM 60 PUFF INH IH (21:05)
[2021-11-06] VITALS (13 sets, daily range): BP systolic 112–148; BP diastolic 76–92; PULSE 79–95; RESP 7–20; TEMP 31–36.8; O2SAT 90–93
[2021-11-06 06:25] LABS: Abs Immature Grans 0.21 10^3/uL (0.0-0.06); Absolute Basophil Count 0.02 10^3/uL (0.0-0.2); Absolute Lymphocyte Count 0.34 10^3/uL (1.2-3.4); Basophils % 0.2; HCT 45.6 % (40.0-50.0); HGB 15.2 g/dL (13.5-17.5); Immature Grans % 1.9; Lymphocytes % 3.1; MCH 29.6 pg (27.0-33.0); MCHC 33.3 % (32.0-36.0); MCV 89 fL (80-95); MPV 9.7 fL (8.0-11.0); Monocytes % 3.1; Neutrophils % 91.7; Platelet Count 206 10^3/uL (130-400); RBC 5.14 10^6/uL (4.36-5.78); RDW 14.3 % (11.8-14.1); RDW-SD 46.4 fL; WBC 11.12 10^3/uL (4.4-10.8)
[2021-11-06 06:28] LABS: Absolute Monocyte Count 0.34 10^3/uL (0.1-0.8)
[2021-11-06 06:54] LABS: ALT 42 U/L (16-63); AST 36 U/L (15-37); Albumin 2.4 g/dL (3.4-5.0); Alkaline Phosphatase 142 U/L (46-116); Anion Gap 6.4 mmol/L (3-11); BUN 40 mg/dL (7-18); Bilirubin, Total 0.2 mg/dL (0.2-1.0); C-Reactive Protein 2.37 mg/dL (0.0-0.3); CO2 28.6 mmol/L (21.0-32.0); CREATININE 1.1 mg/dL (0.70-1.30); Calcium 8.2 mg/dL (8.5-10.1); Chloride 101 mmol/L (98-107); Creatine Kinase 34 U/L (39-308); Estimated GFR 65.38 (mL/min/1.73m2); Glucose 148 mg/dL (74-106); LDH 552 U/L (85-227); Potassium 4.7 mmol/L (3.5-5.1); Sodium 136 mmol/L (136-145); Total Protein 6.1 g/dL (6.4-8.2)
[2021-11-06] MEDS: Furosemide 20 MG TAB PO ×2 (08:05→16:56)
[2021-11-06] MEDS: Lactobacillus Acidophilus CAP 1 CAP PO (08:06)
[2021-11-06] MEDS: Dexamethasone 4 MG TAB 6 MG PO (08:06)
[2021-11-06] MEDS: Omeprazole 20 MG CAPCR PO (08:06)
[2021-11-06] MEDS: Albuterol HFA 8 GM 60 PUFF INH IH ×4 (09:00→21:48)
[2021-11-06] MEDS: Docusate Sodium 100 MG CAP PO ×3 (09:01→21:46)
[2021-11-06] MEDS: Polyethylene Glycol 3350 17 GM PACKET PO (09:01)
[2021-11-06] MEDS: Tiotropium/Olodaterol 10 PUFF INHALER 2 PUFF IH (09:03)
--- NOTE | 2021-11-06 10:00 | CMPROGNOTE_ITS ---
- If Service Date Differs Date of service: 11/06/21 Time of Service: 10:00 Care Management Progress Note S/O: Ashly continues to be closely monitored and treated. He requires Hi-Flow O2, telemetry and is being treated with remdesivir and voriconazole and IV ABX. He continues to be treated with steroids and followed closely by respiratory, encouraging mobilization and use of IS/acapella. CM continues to follow. A: 86 year old male re-admitted to [facility] 11/01/21 for COVID Pneumonia. P: Oniel continues to be closely monitored and treated; CM continues to follow. No additional services anticipated at this time, Oniel will return home, follow up with outpatient providers and transport via private vehicle with his daughter.
[2021-11-06] MEDS: REMDESIVIR 100 MG in Normal Saline 250 ML 250 MG IVPB (12:03)
[2021-11-06] MEDS: Enoxaparin 40 MG/0.4 ML SYR SC (13:40)
--- NOTE | 2021-11-06 19:41 | W.PM.PROGNOT ---
Date of Service Date of service: 11/06/21 Time of Service: 17:50 Assessment and Plan Assessment and plan (1) COVID-19: Status: Acute Assessment and plan: Continue remdesivir (course extended). Agree with abstaining from baricitinib due to concomittent fungal pneumonia. Continue decadron 6 mg daily. Encourage IS, acapella, proning. Wean HFNC as tolerated. Agrees to try CPAP tonight. (2) Pneumonia: Status: Acute Assessment and plan: Fungal. Continue empiric voriconazole while awaiting speciation data. (3) Acute and chronic respiratory failure with hypoxia: Status: Acute Assessment and plan: Due to above, as above. Continue Stiolto; use scheduled Combivent and prn albuterol. Encourage pulmonary toilet. (4) Pulmonary fibrosis, unspecified: Status: Chronic Assessment and plan: As above (5) Hypersensitivity pneumonitis: Status: Acute Assessment and plan: Will need a lengthy steroid taper. He is steroid dependent as outpatient. (6) Hiatal hernia with GERD without esophagitis: Status: Acute Assessment and plan: continue omeprazole (7) DVT prophylaxis: Status: Acute Assessment and plan: enoxaparin 40 mg SC daily (8) Discharge planning issues: Status: Acute Assessment and plan: DNR/DNI Discussed with daughter who is hopeful that Ashly can have home health on discharge. Will consult PT here. Will retest COVID-19 PCR 10 days from original test. Subjective Subjective Interval history since last seen: Ashly states that he is not feeling better or worse, but he does feel lifeless. He states that he has been bringing up a lot of sputum when coughing. He has been thinking about using CPAP and thinks he will try it tonight - I notified RT. No dizziness, chest pain, nausea. Shortness of breath is better. I told him I did not know how to tell which of his conditions is making him so tired. Exam Narrative Exam Narrative: General: Pleasant elderly male how is on humidified heated high flow NC, no dyspnea/tachypnea/cyanosis, A&Ox3 HEENT: EOMI, MMM Heart: RRR, no m/r/g Lungs: Diminished breath sounds B Abdomen: soft, nontender, nondistended Extremities: +1 BLE edema in TEDS Objective Last Vital Signs Temp 36.4 C L 11/06/21 15:16 Pulse 87 11/06/21 15:16 Resp 20 11/06/21 15:16 BP 130/88 11/06/21 15:16 Pulse Ox 91 L 11/06/21 15:16 Laboratory Results - last 24 hr 11/06/21 11/06/21 06:08 06:08 WBC 11.12 H RBC 5.14 Hgb 15.2 Hct 45.6 MCV 89 MCH 29.6 MCHC 33.3 RDW 14.3 H Plt Count 206 MPV 9.7 Immature Gran % 1.9 Neutrophils % 91.7 Lymphocytes % 3.1 Monocytes % 3.1 Eosinophils % 0.0 Basophils % 0.2 Nucleated RBC % 0.0 Absolute Neutrophils 10.20 H Absolute Lymphocytes 0.34 L Absolute Monocytes 0.34 Absolute Eosinophils 0.00 Absolute Basophils 0.02 Sodium 136 Potassium 4.7 Chloride 101 Carbon Dioxide 28.6 Anion Gap 6.4 BUN 40 H Creatinine 1.1 Est GFR (CKD-EPI 2020) 65.38 Glucose 148 H Calcium 8.2 L Total Bilirubin 0.2 AST 36 ALT 42 Alkaline Phosphatase 142 H Lactate Dehydrogenase 552 H Creatine Kinase 34 L C-Reactive Protein 2.37 H Total Protein 6.1 L Albumin 2.4 L
[2021-11-06] MEDS: Senna TAB 1 TAB PO (21:46)
[2021-11-06 22:03] LABS: Result Negative
[2021-11-07] VITALS (18 sets, daily range): BP systolic 116–137; BP diastolic 71–89; PULSE 79–108; RESP 6–22; TEMP 31–36.8; O2SAT 92–95
[2021-11-07 07:35] LABS: Abs Immature Grans 0.31 10^3/uL (0.0-0.06); Absolute Basophil Count 0.03 10^3/uL (0.0-0.2); Absolute Lymphocyte Count 0.25 10^3/uL (1.2-3.4); Absolute Neutrophil Count 9.97 10^3/uL (1.2-6.7); Basophils % 0.3; HCT 47.4 % (40.0-50.0); HGB 15.9 g/dL (13.5-17.5); Immature Grans % 2.8; Lymphocytes % 2.3; MCH 29.7 pg (27.0-33.0); MCHC 33.5 % (32.0-36.0); MCV 88 fL (80-95); MPV 9.7 fL (8.0-11.0); Monocytes % 4.5; Neutrophils % 90.1; Platelet Count 201 10^3/uL (130-400); RBC 5.36 10^6/uL (4.36-5.78); RDW 14.6 % (11.8-14.1); RDW-SD 46.7 fL; WBC 11.06 10^3/uL (4.4-10.8)
[2021-11-07 07:50] LABS: Anion Gap 7.5 mmol/L (3-11); BUN 40 mg/dL (7-18); C-Reactive Protein 1.83 mg/dL (0.0-0.3); CO2 28.5 mmol/L (21.0-32.0); CREATININE 1.1 mg/dL (0.70-1.30); Calcium 8.4 mg/dL (8.5-10.1); Chloride 99 mmol/L (98-107); Estimated GFR 65.38 (mL/min/1.73m2); Glucose 158 mg/dL (74-106); Magnesium 1.8 mg/dL (1.8-2.4); Potassium 4.5 mmol/L (3.5-5.1); Sodium 135 mmol/L (136-145)
[2021-11-07 08:01] LABS: INR 1.1 (0.9-1.1); Prothrombin Time 11.1 sec (9.3-11.0)
[2021-11-07 08:30] LABS: D-Dimer 2058 ng/mlFEU (<500)
--- NOTE | 2021-11-07 09:51 | CMPROGNOTE_ITS ---
- If Service Date Differs Date of service: 11/07/21 Time of Service: 09:51 Care Management Progress Note S/O: Ashly continues to be closely monitored and treated. He is currently 93% on Hi-Flow NC, on telemetry and is being treated with remdesivir and voriconazole and IV ABX. He continues to be treated with steroids and followed closely by respiratory, encouraging mobilization and use of IS/acapella. CM continues to follow. A: 86 year old male re-admitted to [facility] 11/01/21 for COVID Pneumonia. P: Oniel continues to be closely monitored and treated; CM continues to follow. No additional services anticipated at this time, Oniel will return home, follow up with outpatient providers and transport via private vehicle with his daughter.
[2021-11-07] MEDS: Milk of Magnesia 30 ML CUP PO (09:55)
[2021-11-07] MEDS: Polyethylene Glycol 3350 17 GM PACKET PO (09:55)
[2021-11-07] MEDS: Normal Saline Flush 10 ML SYR IVP ×2 (09:55→12:41)
[2021-11-07] MEDS: Furosemide 20 MG TAB PO ×2 (09:56→15:53)
[2021-11-07] MEDS: Docusate Sodium 100 MG CAP PO ×3 (09:56→20:15)
[2021-11-07] MEDS: Lactobacillus Acidophilus CAP 1 CAP PO (09:56)
[2021-11-07] MEDS: Dexamethasone 4 MG TAB 6 MG PO (09:56)
[2021-11-07] MEDS: Omeprazole 20 MG CAPCR PO (09:56)
[2021-11-07] MEDS: Sulfameth/Trimeth DS TAB 1 TAB PO (10:02)
[2021-11-07] MEDS: Tiotropium/Olodaterol 10 PUFF INHALER 2 PUFF IH (10:30)
[2021-11-07] MEDS: Albuterol HFA 8 GM 60 PUFF INH IH ×4 (10:30→20:15)
[2021-11-07] MEDS: REMDESIVIR 100 MG in Normal Saline 250 ML 250 MG IVPB (12:45)
[2021-11-07 13:06] LABS: Voriconazole, S 8.1 mcg/mL (1.0 - 5.5)
[2021-11-07] MEDS: Enoxaparin 40 MG/0.4 ML SYR SC (14:25)
--- NOTE | 2021-11-07 14:35 | PGE_ITS ---
Assessment and Plan Assessment and plan (1) COVID-19: Status: Acute (2) Acute and chronic respiratory failure with hypoxia: Status: Acute (3) Hypersensitivity pneumonitis: Status: Acute (4) Fungal pneumonia: Status: Acute Assessment and plan: This is an 86 yo man with progressive chronic hypersensitivity pneumonitis who w as on chronic prednisone who was recently admitted for pneumonia who recovered very quickly from this and discharged home. He had a follow up visit with me planned but prior to this he returned with a COVID infection and his previously drawn Fungitell was found to be positive. This was repeated and it again returned positive. His sputum cultures have also returned positive for fungus (awaiting speciation-but most likely aspergillus - non yeast, non pantera). He is being covered empirically with voriconazole. He is also receiving Decadron and remdesivir. I do agree that voriconazole is likely the best empiric option to cover the most likely culprits. Hopefully we will be able to get speciation from the sputum samples as he is too tenuous for bronchoscopy at this time. I do think it is important to wean off the steroids given the fungal infection. Fungal Pneumonia - agree with voriconazole - recommend voriconazole level - await speciation and resistances - recommend weaning off steroids: Decadron to 5mg for 3 days, then 4mg for 3 days, then 3mg for 3 days, then 2mg for 3 days, then 1 mg for 3 days - if he cannot tolerate a wean completely off, would stop at lowest dose possible while symptoms are controlled - too tenuous for bronch currently Hypoxic respiratory failure - HFNC during the day - CPAP at night if can be tolerated - albuterol QID - Stiolto daily COVID - remdesivir - on Decadron - ideally will titrate this down quickly as above Chronic hypersensitivity pneumonitis - was on chronic steroids - once COVID resolving, I would like to titrate the steroids, especially with the fungal pneumonia General Date Of Service Date of service: 11/07/21 Time of Service: 09:25 Subjective 24 Hour Events: Ashly feels unchanged. He still has dyspnea above his baseline but continues to work with IS and the [employer]. He did try the CPAP overnight but it was very uncomfortable for him and he states the mask kept slipping off as he sleeps on his side. Exam Narrative Exam Narrative: Gen:?NAD, normal respiratory effort, well-nourished HENT:?PERRL, nasal turbinates normal without erythema or inflammation, moist oral? mucosa, Mallampati 2, No LAD or JVD Chest:?No respiratory distress, normal appearance of chest, clear to auscultati on bilaterally, bilateral crackles, no wheezes, normal inspiratory effort Heart:?regular rate and rhythym, no murmurs, rubs or gallops Abdomen:?Non-distended, soft, non tender Extremities:?No clubbing, 2+ edema, cyanosis, rashes Neuro:?AAOx3 , non focal Psych:?cooperative, appropriate mental affect Objective Last Vital Signs Temp 36.0 C L 11/07/21 14:34 Pulse 92 H 11/07/21 14:34 Resp 21 11/07/21 14:34 BP 123/79 11/07/21 14:34 Pulse Ox 92 11/07/21 14:34 Laboratory Results - last 24 hr 11/03/21 11/05/21 11/07/21 10:45 23:37 07:05 WBC RBC Hgb Hct MCV MCH MCHC RDW Plt Count MPV Immature Gran % Neutrophils % Lymphocytes % Monocytes % Eosinophils % Basophils % Nucleated RBC % Absolute Neutrophils Absolute Lymphocytes Absolute Monocytes Absolute Eosinophils Absolute Basophils PT INR D-Dimer Sodium 135 L Potassium 4.5 Chloride 99 Carbon Dioxide 28.5 Anion Gap 7.5 BUN 40 H Creatinine 1.1 Est GFR (CKD-EPI 2020) 65.38 Glucose 158 H Calcium 8.4 L Magnesium 1.8 C-Reactive Protein 1.83 H Legionella Source result Legionella DNA (PCR) Negative TB Test Ag - Nil 1 Cancelled TB Test Ag - Nil 2 Cancelled TB Test (QFT) Interp Cancelled 11/07/21 11/07/21 07:05 07:05 WBC 11.06 H RBC 5.36 Hgb 15.9 Hct 47.4 MCV 88 MCH 29.7 MCHC 33.5 RDW 14.6 H Plt Count 201 MPV 9.7 Immature Gran % 2.8 Neutrophils % 90.1 Lymphocytes % 2.3 Monocytes % 4.5 Eosinophils % 0.0 Basophils % 0.3 Nucleated RBC % 0.0 Absolute Neutrophils 9.97 H Absolute Lymphocytes 0.25 L Absolute Monocytes 0.50 Absolute Eosinophils 0.00 Absolute Basophils 0.03 PT 11.1 H INR 1.1 D-Dimer 2057 H Sodium Potassium Chloride Carbon Dioxide Anion Gap BUN Creatinine Est GFR (CKD-EPI 2020) Glucose Calcium Magnesium C-Reactive Protein Legionella Source Legionella DNA (PCR) TB Test Ag - Nil 1 TB Test Ag - Nil 2 TB Test (QFT) Interp Results Medications Medications: Active Medications Generic Name Dose Route Start Last Admin Trade Name Freq PRN Reason Stop Dose Admin Acetaminophen 0 mg 11/01/21 12:06 Acetaminophen 325 Mg Tab PO Q4H PRN PRN Acidophilus/Pectin 1 cap 11/02/21 08:30 11/07/21 09:56 Lactobacillus Acidophilus Cap PO 1 cap DAILY MARIBEL Administration Al Hydrox/Mg Hydrox/Simethicone 30 ml 11/01/21 12:06 Mylanta Suspension 30 Ml Cup PO Q2H PRN PRN Albuterol Sulfate 2 puff 11/05/21 20:00 11/07/21 13:21 Albuterol Hfa 8 Gm 60 Puff Inh IH 2 puffs QID MARIBEL Administration Bisacodyl 10 mg 11/05/21 23:49 Bisacodyl 10 Mg Supp NV DAILY PRN PRN Device 1 each 11/01/21 20:00 Inhaler, Assist Device MC DIRECTED MARIBEL Device 1 each 11/05/21 20:00 Inhaler, Assist Device MC DIRECTED MARIBEL Dexamethasone 6 mg 11/04/21 08:30 11/07/21 09:56 Dexamethasone 4 Mg Tab PO 6 mg DAILY MARIBEL Administration Dimethicone/Zinc Oxide 0 gm 11/01/21 12:00 Chantal Protect Cream 142 Gm Tube TP PRN PRN Docusate Sodium 100 mg 11/06/21 08:30 11/07/21 14:25 Docusate Sodium 100 Mg Cap PO 100 mg TID MARIBEL Administration Enoxaparin Sodium 40 mg 11/01/21 14:00 11/07/21 14:25 Enoxaparin 40 Mg/0.4 Ml Syr SC 40 mg Q24H MARIBEL Administration Furosemide 20 mg 11/05/21 08:30 11/07/21 09:56 Furosemide 20 Mg Tab PO 20 mg BID@0830,1600 MARIBEL Administration Guaifenesin 600 mg 11/01/21 19:37 Guaifenesin 600 Mg Tabcr PO BID PRN PRN Cough Sodium Chloride 500 mls @ 0 mls/hr 11/01/21 12:00 Saline 500ml Bag IV PRN PRN As Directed Remdesivir 100 mg/ Sodium 250 mls @ 250 mls/hr 11/06/21 12:00 11/07/21 12:45 Chloride IVPB 11/09/21 12:59 250 mls/hr Q24H MARIBEL Administration IV Miscellaneous Supplies 1 each 11/01/21 12:00 Iv Access IV DIRECTED MARIBEL Levalbuterol HCl 1.25 mg 11/07/21 13:06 Levalbuterol 1.25 Mg/3 Ml Upd Vial UPD Q4H PRN PRN Magnesium Hydroxide 30 ml 11/01/21 12:06 11/07/21 09:55 Milk Of Magnesia 30 Ml Cup PO 30 ml DAILY PRN PRN Administration Omeprazole 20 mg 11/02/21 08:30 11/07/21 09:56 Omeprazole 20 Mg Capcr PO 20 mg DAILY MARIBEL Administration Polyethylene Glycol 17 gm 11/06/21 08:30 11/07/21 09:55 Polyethylene Glycol 3350 17 Gm Packet PO 17 gm DAILY MARIBEL Administration Sennosides 1 tab 11/06/21 22:00 11/06/21 21:46 Senna Tab PO 1 tab HS MARIBEL Administration Sodium Chloride 0 ml 11/01/21 12:00 11/07/21 12:41 Normal Saline Flush 10 Ml Syr IVP 40 ml PRN PRN Administration Tiotropium [place]/Olodaterol 2 puff 11/02/21 08:30 11/07/21 10:30 Tiotropium/Olodaterol 10 Puff Inhaler IH 1 inh DAILY MARIBEL Administration Trimethoprim/Sulfamethoxazole 1 tab 11/09/21 10:00 Sulfameth/Trimeth Ds Tab PO MoWeFr@1000 MARIBEL Voriconazole 300 mg 11/02/21 20:00 11/07/21 09:56 Voriconazole 200 Mg Tab PO 300 mg Q12H MARIBEL Administration Allergies No Known Allergies Allergy (Verified 11/01/21 09:24) Labs Result Diagrams: 11/07/21 07:05 11/07/21 07:05 Labs: 11/01/21 11:30 Blood Blood Culture - Final NO GROWTH 120 HOURS 11/01/21 11:25 Blood Blood Culture - Final NO GROWTH 120 HOURS 11/01/21 13:47 Sputum Sputum Culture - Preliminary Normal Camila Fungus 11/01/21 13:47 Sputum Gram Stain - Final Laboratory Tests Range/Units 11/01/21 11/01/21 11/01/21 07:25 07:25 09:20 WBC (4.4-10.8) 10^3/uL RBC (4.36-5.78) 10^6/uL Hgb (13.5-17.5) g/dL Hct (40.0-50.0) % MCV (80-95) fL MCH (27.0-33.0) pg MCHC (32.0-36.0) % RDW (11.8-14.1) % Plt Count (130-400) 10^3/uL MPV (8.0-11.0) fL Immature Gran % Neutrophils % Lymphocytes % Monocytes % Eosinophils % Basophils % Nucleated RBC % (0.0-0.3) % Absolute Neutrophils (1.2-6.7) 10^3/uL Absolute Lymphocytes (1.2-3.4) 10^3/uL Absolute Monocytes (0.1-0.8) 10^3/uL Absolute Eosinophils (0.0-0.7) 10^3/uL Absolute Basophils (0.0-0.2) 10^3/uL PT (9.3-11.0) sec INR (0.9-1.1) APTT (21.0-27.5) sec D-Dimer (<500) ng/mlFEU VBG Lactate (0.6-1.4) mmol/L Sodium (136-145) mmol/L 136 Potassium (3.5-5.1) mmol/L 3.7 Chloride (98-107) mmol/L 100 Carbon Dioxide (21.0-32.0) mmol/L 31.7 Anion Gap (3-11) mmol/L 4.3 BUN (7-18) mg/dL 22 H Creatinine (0.70-1.30) mg/dL 1.1 Est GFR (CKD-EPI 2020) (mL/min/1.73m2) 65.38 Glucose (74-106) mg/dL 75 Calcium (8.5-10.1) mg/dL 8.6 Magnesium (1.8-2.4) mg/dL 1.6 L Ferritin (26-388) ng/mL Total Bilirubin (0.2-1.0) mg/dL 0.3 AST (15-37) U/L 45 H ALT (16-63) U/L 38 Alkaline Phosphatase (46-116) U/L 142 H Lactate Dehydrogenase (85-227) U/L Creatine Kinase (39-308) U/L Troponin I (<or=60) ng/L 59 C-Reactive Protein (0.0-0.3) mg/dL Total Protein (6.4-8.2) g/dL 7.2 Albumin (3.4-5.0) g/dL 2.4 L Procalcitonin ng/mL COVID-19 Source SARS-CoV-2 (PCR) (Negative) Hep Bs Antigen (Negative) Hep Bs Antibody (See Note) Hep Bs Antibody, Quant (See Note) mIU/mL Hep B Core Total Ab (Negative) Hepatitis C Antibody (Negative) HIV 1&2 Ag/Ab, 4th Gen (Negative) Negative Influenza Type A (PCR) (Negative) Influenza Type B (PCR) (Negative) Legionella Source Urine Legionella Ag (Negative) Legionella DNA (PCR) M. pneumoniae Source M. pneumoniae (PCR) Aspergillus Ag (EIA) (<0.5) index <0.500 RSV (PCR) (Negative) Ur Strep pneumoniae Ag (Negative) TB Test Ag - Nil 1 TB Test Ag - Nil 2 TB Test (QFT) Interp B-(1,3)-D-Glucan Quant (<60 pg/mL) pg/mL B-(1,3)-D-Glucan Qual (Negative) Add-On Test Request Range/Units 11/01/21 11/01/21 11/01/21 09:20 09:25 11:30 WBC (4.4-10.8) 10^3/uL 16.77 H RBC (4.36-5.78) 10^6/uL 5.18 Hgb (13.5-17.5) g/dL 15.4 Hct (40.0-50.0) % 48.4 MCV (80-95) fL 93 MCH (27.0-33.0) pg 29.7 MCHC (32.0-36.0) % 31.8 L RDW (11.8-14.1) % 14.5 H Plt Count (130-400) 10^3/uL 188 MPV (8.0-11.0) fL 10.0 Immature Gran % 1.2 Neutrophils % 88.7 Lymphocytes % 6.4 Monocytes % 3.2 Eosinophils % 0.3 Basophils % 0.2 Nucleated RBC % (0.0-0.3) % 0.0 Absolute Neutrophils (1.2-6.7) 10^3/uL 14.87 H Absolute Lymphocytes (1.2-3.4) 10^3/uL 1.07 L Absolute Monocytes (0.1-0.8) 10^3/uL 0.54 Absolute Eosinophils (0.0-0.7) 10^3/uL 0.05 Absolute Basophils (0.0-0.2) 10^3/uL 0.03 PT (9.3-11.0) sec INR (0.9-1.1) APTT (21.0-27.5) sec D-Dimer (<500) ng/mlFEU VBG Lactate (0.6-1.4) mmol/L 1.6 H Sodium (136-145) mmol/L Potassium (3.5-5.1) mmol/L Chloride (98-107) mmol/L Carbon Dioxide (21.0-32.0) mmol/L Anion Gap (3-11) mmol/L BUN (7-18) mg/dL Creatinine (0.70-1.30) mg/dL Est GFR (CKD-EPI 2020) (mL/min/1.73m2) Glucose (74-106) mg/dL Calcium (8.5-10.1) mg/dL Magnesium (1.8-2.4) mg/dL Ferritin (26-388) ng/mL Total Bilirubin (0.2-1.0) mg/dL AST (15-37) U/L ALT (16-63) U/L Alkaline Phosphatase (46-116) U/L Lactate Dehydrogenase (85-227) U/L Creatine Kinase (39-308) U/L Troponin I (<or=60) ng/L C-Reactive Protein (0.0-0.3) mg/dL Total Protein (6.4-8.2) g/dL Albumin (3.4-5.0) g/dL Procalcitonin ng/mL < 0.1 COVID-19 Source Not Applicable SARS-CoV-2 (PCR) (Negative) Positive A Hep Bs Antigen (Negative) Hep Bs Antibody (See Note) Hep Bs Antibody, Quant (See Note) mIU/mL Hep B Core Total Ab (Negative) Hepatitis C Antibody (Negative) HIV 1&2 Ag/Ab, 4th Gen (Negative) Influenza Type A (PCR) (Negative) Negative Influenza Type B (PCR) (Negative) Negative Legionella Source Urine Legionella Ag (Negative) Legionella DNA (PCR) M. pneumoniae Source M. pneumoniae (PCR) Aspergillus Ag (EIA) (<0.5) index RSV (PCR) (Negative) Negative Ur Strep pneumoniae Ag (Negative) TB Test Ag - Nil 1 TB Test Ag - Nil 2 TB Test (QFT) Interp B-(1,3)-D-Glucan Quant (<60 pg/mL) pg/mL B-(1,3)-D-Glucan Qual (Negative) Add-On Test Request Range/Units 11/01/21 11/01/21 11/01/21 11:30 11:30 11:30 WBC (4.4-10.8) 10^3/uL RBC (4.36-5.78) 10^6/uL Hgb (13.5-17.5) g/dL Hct (40.0-50.0) % MCV (80-95) fL MCH (27.0-33.0) pg MCHC (32.0-36.0) % RDW (11.8-14.1) % Plt Count (130-400) 10^3/uL MPV (8.0-11.0) fL Immature Gran % Neutrophils % Lymphocytes % Monocytes % Eosinophils % Basophils % Nucleated RBC % (0.0-0.3) % Absolute Neutrophils (1.2-6.7) 10^3/uL Absolute Lymphocytes (1.2-3.4) 10^3/uL Absolute Monocytes (0.1-0.8) 10^3/uL Absolute Eosinophils (0.0-0.7) 10^3/uL Absolute Basophils (0.0-0.2) 10^3/uL PT (9.3-11.0) sec 9.9 INR (0.9-1.1) 1.0 APTT (21.0-27.5) sec 25.4 D-Dimer (<500) ng/mlFEU 3264 H VBG Lactate (0.6-1.4) mmol/L Sodium (136-145) mmol/L Potassium (3.5-5.1) mmol/L Chloride (98-107) mmol/L Carbon Dioxide (21.0-32.0) mmol/L Anion Gap (3-11) mmol/L BUN (7-18) mg/dL Creatinine (0.70-1.30) mg/dL Est GFR (CKD-EPI 2020) (mL/min/1.73m2) Glucose (74-106) mg/dL Calcium (8.5-10.1) mg/dL Magnesium (1.8-2.4) mg/dL Ferritin (26-388) ng/mL 750 H Total Bilirubin (0.2-1.0) mg/dL AST (15-37) U/L ALT (16-63) U/L Alkaline Phosphatase (46-116) U/L Lactate Dehydrogenase (85-227) U/L 563 H Creatine Kinase (39-308) U/L 53 Troponin I (<or=60) ng/L C-Reactive Protein (0.0-0.3) mg/dL Total Protein (6.4-8.2) g/dL Albumin (3.4-5.0) g/dL Procalcitonin ng/mL COVID-19 Source SARS-CoV-2 (PCR) (Negative) Hep Bs Antigen (Negative) Hep Bs Antibody (See Note) Hep Bs Antibody, Quant (See Note) mIU/mL Hep B Core Total Ab (Negative) Hepatitis C Antibody (Negative) HIV 1&2 Ag/Ab, 4th Gen (Negative) Influenza Type A (PCR) (Negative) Influenza Type B (PCR) (Negative) Legionella Source Urine Legionella Ag (Negative) Legionella DNA (PCR) M. pneumoniae Source M. pneumoniae (PCR) Aspergillus Ag (EIA) (<0.5) index RSV (PCR) (Negative) Ur Strep pneumoniae Ag (Negative) TB Test Ag - Nil 1 TB Test Ag - Nil 2 TB Test (QFT) Interp B-(1,3)-D-Glucan Quant (<60 pg/mL) pg/mL B-(1,3)-D-Glucan Qual (Negative) Add-On Test Request Range/Units 11/01/21 11/01/21 11/01/21 11:30 11:30 13:47 WBC (4.4-10.8) 10^3/uL RBC (4.36-5.78) 10^6/uL Hgb (13.5-17.5) g/dL Hct (40.0-50.0) % MCV (80-95) fL MCH (27.0-33.0) pg MCHC (32.0-36.0) % RDW (11.8-14.1) % Plt Count (130-400) 10^3/uL MPV (8.0-11.0) fL Immature Gran % Neutrophils % Lymphocytes % Monocytes % Eosinophils % Basophils % Nucleated RBC % (0.0-0.3) % Absolute Neutrophils (1.2-6.7) 10^3/uL Absolute Lymphocytes (1.2-3.4) 10^3/uL Absolute Monocytes (0.1-0.8) 10^3/uL Absolute Eosinophils (0.0-0.7) 10^3/uL Absolute Basophils (0.0-0.2) 10^3/uL PT (9.3-11.0) sec INR (0.9-1.1) APTT (21.0-27.5) sec D-Dimer (<500) ng/mlFEU VBG Lactate (0.6-1.4) mmol/L Sodium (136-145) mmol/L Potassium (3.5-5.1) mmol/L Chloride (98-107) mmol/L Carbon Dioxide (21.0-32.0) mmol/L Anion Gap (3-11) mmol/L BUN (7-18) mg/dL Creatinine (0.70-1.30) mg/dL Est GFR (CKD-EPI 2020) (mL/min/1.73m2) Glucose (74-106) mg/dL Calcium (8.5-10.1) mg/dL Magnesium (1.8-2.4) mg/dL Ferritin (26-388) ng/mL Total Bilirubin (0.2-1.0) mg/dL AST (15-37) U/L ALT (16-63) U/L Alkaline Phosphatase (46-116) U/L Lactate Dehydrogenase (85-227) U/L Creatine Kinase (39-308) U/L Troponin I (<or=60) ng/L C-Reactive Protein (0.0-0.3) mg/dL 7.03 H Total Protein (6.4-8.2) g/dL Albumin (3.4-5.0) g/dL Procalcitonin ng/mL COVID-19 Source SARS-CoV-2 (PCR) (Negative) Hep Bs Antigen (Negative) Negative Hep Bs Antibody (See Note) Negative Hep Bs Antibody, Quant (See Note) mIU/mL <3.1 Hep B Core Total Ab (Negative) Negative Hepatitis C Antibody (Negative) Negative HIV 1&2 Ag/Ab, 4th Gen (Negative) Influenza Type A (PCR) (Negative) Influenza Type B (PCR) (Negative) Legionella Source Urine Legionella Ag (Negative) Legionella DNA (PCR) M. pneumoniae Source M. pneumoniae (PCR) Aspergillus Ag (EIA) (<0.5) index RSV (PCR) (Negative) Ur Strep pneumoniae Ag (Negative) Negative TB Test Ag - Nil 1 TB Test Ag - Nil 2 TB Test (QFT) Interp B-(1,3)-D-Glucan Quant (<60 pg/mL) pg/mL B-(1,3)-D-Glucan Qual (Negative) Add-On Test Request Range/Units 11/01/21 11/02/21 11/02/21 13:47 07:25 07:25 WBC (4.4-10.8) 10^3/uL 9.80 RBC (4.36-5.78) 10^6/uL 5.09 Hgb (13.5-17.5) g/dL 15.0 Hct (40.0-50.0) % 46.7 MCV (80-95) fL 92 MCH (27.0-33.0) pg 29.5 MCHC (32.0-36.0) % 32.1 RDW (11.8-14.1) % 14.4 H Plt Count (130-400) 10^3/uL 190 MPV (8.0-11.0) fL 10.2 Immature Gran % 1.2 Neutrophils % 90.0 Lymphocytes % 5.5 Monocytes % 3.1 Eosinophils % 0.0 Basophils % 0.2 Nucleated RBC % (0.0-0.3) % 0.0 Absolute Neutrophils (1.2-6.7) 10^3/uL 8.82 H Absolute Lymphocytes (1.2-3.4) 10^3/uL 0.54 L Absolute Monocytes (0.1-0.8) 10^3/uL 0.30 Absolute Eosinophils (0.0-0.7) 10^3/uL 0.00 Absolute Basophils (0.0-0.2) 10^3/uL 0.02 PT (9.3-11.0) sec INR (0.9-1.1) APTT (21.0-27.5) sec D-Dimer (<500) ng/mlFEU VBG Lactate (0.6-1.4) mmol/L Sodium (136-145) mmol/L 136 Potassium (3.5-5.1) mmol/L 4.4 Chloride (98-107) mmol/L 99 Carbon Dioxide (21.0-32.0) mmol/L 29.2 Anion Gap (3-11) mmol/L 7.8 BUN (7-18) mg/dL 23 H Creatinine (0.70-1.30) mg/dL 1.0 Est GFR (CKD-EPI 2020) (mL/min/1.73m2) 73.30 Glucose (74-106) mg/dL 111 H Calcium (8.5-10.1) mg/dL 8.4 L Magnesium (1.8-2.4) mg/dL 1.9 Ferritin (26-388) ng/mL Total Bilirubin (0.2-1.0) mg/dL 0.3 AST (15-37) U/L 34 ALT (16-63) U/L 31 Alkaline Phosphatase (46-116) U/L 108 Lactate Dehydrogenase (85-227) U/L Creatine Kinase (39-308) U/L 37 L Troponin I (<or=60) ng/L C-Reactive Protein (0.0-0.3) mg/dL 12.66 H Total Protein (6.4-8.2) g/dL 6.8 Albumin (3.4-5.0) g/dL 2.3 L Procalcitonin ng/mL COVID-19 Source SARS-CoV-2 (PCR) (Negative) Hep Bs Antigen (Negative) Hep Bs Antibody (See Note) Hep Bs Antibody, Quant (See Note) mIU/mL Hep B Core Total Ab (Negative) Hepatitis C Antibody (Negative) HIV 1&2 Ag/Ab, 4th Gen (Negative) Influenza Type A (PCR) (Negative) Influenza Type B (PCR) (Negative) Legionella Source Urine Legionella Ag (Negative) Negative Legionella DNA (PCR) M. pneumoniae Source M. pneumoniae (PCR) Aspergillus Ag (EIA) (<0.5) index RSV (PCR) (Negative) Ur Strep pneumoniae Ag (Negative) TB Test Ag - Nil 1 TB Test Ag - Nil 2 TB Test (QFT) Interp B-(1,3)-D-Glucan Quant (<60 pg/mL) pg/mL B-(1,3)-D-Glucan Qual (Negative) Add-On Test Request Range/Units 11/02/21 11/02/21 11/03/21 07:25 12:20 08:15 WBC (4.4-10.8) 10^3/uL RBC (4.36-5.78) 10^6/uL Hgb (13.5-17.5) g/dL Hct (40.0-50.0) % MCV (80-95) fL MCH (27.0-33.0) pg MCHC (32.0-36.0) % RDW (11.8-14.1) % Plt Count (130-400) 10^3/uL MPV (8.0-11.0) fL Immature Gran % Neutrophils % Lymphocytes % Monocytes % Eosinophils % Basophils % Nucleated RBC % (0.0-0.3) % Absolute Neutrophils (1.2-6.7) 10^3/uL Absolute Lymphocytes (1.2-3.4) 10^3/uL Absolute Monocytes (0.1-0.8) 10^3/uL Absolute Eosinophils (0.0-0.7) 10^3/uL Absolute Basophils (0.0-0.2) 10^3/uL PT (9.3-11.0) sec INR (0.9-1.1) APTT (21.0-27.5) sec D-Dimer (<500) ng/mlFEU VBG Lactate (0.6-1.4) mmol/L Sodium (136-145) mmol/L 135 L Potassium (3.5-5.1) mmol/L 4.6 Chloride (98-107) mmol/L 100 Carbon Dioxide (21.0-32.0) mmol/L 26.6 Anion Gap (3-11) mmol/L 8.4 BUN (7-18) mg/dL 32 H Creatinine (0.70-1.30) mg/dL 1.2 Est GFR (CKD-EPI 2020) (mL/min/1.73m2) 58.89 Glucose (74-106) mg/dL 161 H Calcium (8.5-10.1) mg/dL 8.4 L Magnesium (1.8-2.4) mg/dL Ferritin (26-388) ng/mL Total Bilirubin (0.2-1.0) mg/dL 0.3 AST (15-37) U/L 31 ALT (16-63) U/L 29 Alkaline Phosphatase (46-116) U/L 126 H Lactate Dehydrogenase (85-227) U/L Creatine Kinase (39-308) U/L 36 L Troponin I (<or=60) ng/L C-Reactive Protein (0.0-0.3) mg/dL 7.37 H Total Protein (6.4-8.2) g/dL 6.8 Albumin (3.4-5.0) g/dL 2.4 L Procalcitonin ng/mL COVID-19 Source SARS-CoV-2 (PCR) (Negative) Hep Bs Antigen (Negative) Hep Bs Antibody (See Note) Hep Bs Antibody, Quant (See Note) mIU/mL Hep B Core Total Ab (Negative) Hepatitis C Antibody (Negative) HIV 1&2 Ag/Ab, 4th Gen (Negative) Influenza Type A (PCR) (Negative) Influenza Type B (PCR) (Negative) Legionella Source Urine Legionella Ag (Negative) Legionella DNA (PCR) M. pneumoniae Source Sputum M. pneumoniae (PCR) Negative Aspergillus Ag (EIA) (<0.5) index RSV (PCR) (Negative) Ur Strep pneumoniae Ag (Negative) TB Test Ag - Nil 1 TB Test Ag - Nil 2 TB Test (QFT) Interp B-(1,3)-D-Glucan Quant (<60 pg/mL) pg/mL 215 A B-(1,3)-D-Glucan Qual (Negative) Positive A Add-On Test Request Range/Units 11/03/21 11/03/21 11/03/21 08:15 10:45 12:54 WBC (4.4-10.8) 10^3/uL 12.42 H RBC (4.36-5.78) 10^6/uL 5.08 Hgb (13.5-17.5) g/dL 15.0 Hct (40.0-50.0) % 45.8 MCV (80-95) fL 90 MCH (27.0-33.0) pg 29.5 MCHC (32.0-36.0) % 32.8 RDW (11.8-14.1) % 14.5 H Plt Count (130-400) 10^3/uL 221 MPV (8.0-11.0) fL 10.0 Immature Gran % 0.9 Neutrophils % 92.3 Lymphocytes % 3.2 Monocytes % 3.5 Eosinophils % 0.0 Basophils % 0.1 Nucleated RBC % (0.0-0.3) % 0.0 Absolute Neutrophils (1.2-6.7) 10^3/uL 11.46 H Absolute Lymphocytes (1.2-3.4) 10^3/uL 0.40 L Absolute Monocytes (0.1-0.8) 10^3/uL 0.43 Absolute Eosinophils (0.0-0.7) 10^3/uL 0.00 Absolute Basophils (0.0-0.2) 10^3/uL 0.01 PT (9.3-11.0) sec INR (0.9-1.1) APTT (21.0-27.5) sec D-Dimer (<500) ng/mlFEU VBG Lactate (0.6-1.4) mmol/L Sodium (136-145) mmol/L Potassium (3.5-5.1) mmol/L Chloride (98-107) mmol/L Carbon Dioxide (21.0-32.0) mmol/L Anion Gap (3-11) mmol/L BUN (7-18) mg/dL Creatinine (0.70-1.30) mg/dL Est GFR (CKD-EPI 2020) (mL/min/1.73m2) Glucose (74-106) mg/dL Calcium (8.5-10.1) mg/dL Magnesium (1.8-2.4) mg/dL Ferritin (26-388) ng/mL Total Bilirubin (0.2-1.0) mg/dL AST (15-37) U/L ALT (16-63) U/L Alkaline Phosphatase (46-116) U/L Lactate Dehydrogenase (85-227) U/L Creatine Kinase (39-308) U/L Troponin I (<or=60) ng/L C-Reactive Protein (0.0-0.3) mg/dL Total Protein (6.4-8.2) g/dL Albumin (3.4-5.0) g/dL Procalcitonin ng/mL < 0.1 COVID-19 Source SARS-CoV-2 (PCR) (Negative) Hep Bs Antigen (Negative) Hep Bs Antibody (See Note) Hep Bs Antibody, Quant (See Note) mIU/mL Hep B Core Total Ab (Negative) Hepatitis C Antibody (Negative) HIV 1&2 Ag/Ab, 4th Gen (Negative) Influenza Type A (PCR) (Negative) Influenza Type B (PCR) (Negative) Legionella Source result Urine Legionella Ag (Negative) Legionella DNA (PCR) Negative M. pneumoniae Source M. pneumoniae (PCR) Aspergillus Ag (EIA) (<0.5) index RSV (PCR) (Negative) Ur Strep pneumoniae Ag (Negative) TB Test Ag - Nil 1 TB Test Ag - Nil 2 TB Test (QFT) Interp B-(1,3)-D-Glucan Quant (<60 pg/mL) pg/mL B-(1,3)-D-Glucan Qual (Negative) Add-On Test Request Range/Units 11/03/21 11/04/21 11/04/21 Unknown 07:53 07:53 WBC (4.4-10.8) 10^3/uL 14.65 H RBC (4.36-5.78) 10^6/uL 5.13 Hgb (13.5-17.5) g/dL 15.0 Hct (40.0-50.0) % 47.2 MCV (80-95) fL 92 MCH (27.0-33.0) pg 29.2 MCHC (32.0-36.0) % 31.8 L RDW (11.8-14.1) % 14.5 H Plt Count (130-400) 10^3/uL 241 MPV (8.0-11.0) fL 10.0 Immature Gran % 1.0 Neutrophils % 91.2 Lymphocytes % 2.4 Monocytes % 5.3 Eosinophils % 0.0 Basophils % 0.1 Nucleated RBC % (0.0-0.3) % 0.0 Absolute Neutrophils (1.2-6.7) 10^3/uL 13.36 H Absolute Lymphocytes (1.2-3.4) 10^3/uL 0.35 L Absolute Monocytes (0.1-0.8) 10^3/uL 0.78 Absolute Eosinophils (0.0-0.7) 10^3/uL 0.00 Absolute Basophils (0.0-0.2) 10^3/uL 0.01 PT (9.3-11.0) sec INR (0.9-1.1) APTT (21.0-27.5) sec D-Dimer (<500) ng/mlFEU VBG Lactate (0.6-1.4) mmol/L Sodium (136-145) mmol/L 136 Potassium (3.5-5.1) mmol/L 4.5 Chloride (98-107) mmol/L 101 Carbon Dioxide (21.0-32.0) mmol/L 26.7 Anion Gap (3-11) mmol/L 8.3 BUN (7-18) mg/dL 36 H Creatinine (0.70-1.30) mg/dL 1.1 Est GFR (CKD-EPI 2020) (mL/min/1.73m2) 65.38 Glucose (74-106) mg/dL 126 H Calcium (8.5-10.1) mg/dL 8.5 Magnesium (1.8-2.4) mg/dL Ferritin (26-388) ng/mL 570 H Total Bilirubin (0.2-1.0) mg/dL 0.3 AST (15-37) U/L 34 ALT (16-63) U/L 34 Alkaline Phosphatase (46-116) U/L 139 H Lactate Dehydrogenase (85-227) U/L 514 H Creatine Kinase (39-308) U/L 30 L Troponin I (<or=60) ng/L C-Reactive Protein (0.0-0.3) mg/dL 4.77 H Total Protein (6.4-8.2) g/dL 6.9 Albumin (3.4-5.0) g/dL 2.4 L Procalcitonin ng/mL COVID-19 Source SARS-CoV-2 (PCR) (Negative) Hep Bs Antigen (Negative) Hep Bs Antibody (See Note) Hep Bs Antibody, Quant (See Note) mIU/mL Hep B Core Total Ab (Negative) Hepatitis C Antibody (Negative) HIV 1&2 Ag/Ab, 4th Gen (Negative) Influenza Type A (PCR) (Negative) Influenza Type B (PCR) (Negative) Legionella Source Urine Legionella Ag (Negative) Legionella DNA (PCR) M. pneumoniae Source M. pneumoniae (PCR) Aspergillus Ag (EIA) (<0.5) index RSV (PCR) (Negative) Ur Strep pneumoniae Ag (Negative) TB Test Ag - Nil 1 TB Test Ag - Nil 2 TB Test (QFT) Interp B-(1,3)-D-Glucan Quant (<60 pg/mL) pg/mL B-(1,3)-D-Glucan Qual (Negative) Add-On Test Request Cancelled Range/Units 11/04/21 11/05/21 11/05/21 07:53 07:00 07:00 WBC (4.4-10.8) 10^3/uL 12.05 H RBC (4.36-5.78) 10^6/uL 5.07 Hgb (13.5-17.5) g/dL 14.8 Hct (40.0-50.0) % 46.5 MCV (80-95) fL 92 MCH (27.0-33.0) pg 29.2 MCHC (32.0-36.0) % 31.8 L RDW (11.8-14.1) % 14.6 H Plt Count (130-400) 10^3/uL 224 MPV (8.0-11.0) fL 10.0 Immature Gran % 1.2 Neutrophils % 91.1 Lymphocytes % 2.7 Monocytes % 4.8 Eosinophils % 0.0 Basophils % 0.2 Nucleated RBC % (0.0-0.3) % 0.0 Absolute Neutrophils (1.2-6.7) 10^3/uL 10.98 H Absolute Lymphocytes (1.2-3.4) 10^3/uL 0.33 L Absolute Monocytes (0.1-0.8) 10^3/uL 0.58 Absolute Eosinophils (0.0-0.7) 10^3/uL 0.00 Absolute Basophils (0.0-0.2) 10^3/uL 0.02 PT (9.3-11.0) sec INR (0.9-1.1) APTT (21.0-27.5) sec D-Dimer (<500) ng/mlFEU 3323 H VBG Lactate (0.6-1.4) mmol/L Sodium (136-145) mmol/L 137 Potassium (3.5-5.1) mmol/L 4.6 Chloride (98-107) mmol/L 102 Carbon Dioxide (21.0-32.0) mmol/L 27.9 Anion Gap (3-11) mmol/L 7.1 BUN (7-18) mg/dL 34 H Creatinine (0.70-1.30) mg/dL 1.1 Est GFR (CKD-EPI 2020) (mL/min/1.73m2) 65.38 Glucose (74-106) mg/dL 142 H Calcium (8.5-10.1) mg/dL 8.6 Magnesium (1.8-2.4) mg/dL Ferritin (26-388) ng/mL Total Bilirubin (0.2-1.0) mg/dL 0.3 AST (15-37) U/L 36 ALT (16-63) U/L 36 Alkaline Phosphatase (46-116) U/L 124 H Lactate Dehydrogenase (85-227) U/L 519 H Creatine Kinase (39-308) U/L 31 L Troponin I (<or=60) ng/L C-Reactive Protein (0.0-0.3) mg/dL 2.99 H Total Protein (6.4-8.2) g/dL 6.4 Albumin (3.4-5.0) g/dL 2.3 L Procalcitonin ng/mL COVID-19 Source SARS-CoV-2 (PCR) (Negative) Hep Bs Antigen (Negative) Hep Bs Antibody (See Note) Hep Bs Antibody, Quant (See Note) mIU/mL Hep B Core Total Ab (Negative) Hepatitis C Antibody (Negative) HIV 1&2 Ag/Ab, 4th Gen (Negative) Influenza Type A (PCR) (Negative) Influenza Type B (PCR) (Negative) Legionella Source Urine Legionella Ag (Negative) Legionella DNA (PCR) M. pneumoniae Source M. pneumoniae (PCR) Aspergillus Ag (EIA) (<0.5) index RSV (PCR) (Negative) Ur Strep pneumoniae Ag (Negative) TB Test Ag - Nil 1 TB Test Ag - Nil 2 TB Test (QFT) Interp B-(1,3)-D-Glucan Quant (<60 pg/mL) pg/mL B-(1,3)-D-Glucan Qual (Negative) Add-On Test Request Range/Units 11/05/21 11/06/21 11/06/21 23:37 06:08 06:08 WBC (4.4-10.8) 10^3/uL 11.12 H RBC (4.36-5.78) 10^6/uL 5.14 Hgb (13.5-17.5) g/dL 15.2 Hct (40.0-50.0) % 45.6 MCV (80-95) fL 89 MCH (27.0-33.0) pg 29.6 MCHC (32.0-36.0) % 33.3 RDW (11.8-14.1) % 14.3 H Plt Count (130-400) 10^3/uL 206 MPV (8.0-11.0) fL 9.7 Immature Gran % 1.9 Neutrophils % 91.7 Lymphocytes % 3.1 Monocytes % 3.1 Eosinophils % 0.0 Basophils % 0.2 Nucleated RBC % (0.0-0.3) % 0.0 Absolute Neutrophils (1.2-6.7) 10^3/uL 10.20 H Absolute Lymphocytes (1.2-3.4) 10^3/uL 0.34 L Absolute Monocytes (0.1-0.8) 10^3/uL 0.34 Absolute Eosinophils (0.0-0.7) 10^3/uL 0.00 Absolute Basophils (0.0-0.2) 10^3/uL 0.02 PT (9.3-11.0) sec INR (0.9-1.1) APTT (21.0-27.5) sec D-Dimer (<500) ng/mlFEU VBG Lactate (0.6-1.4) mmol/L Sodium (136-145) mmol/L 136 Potassium (3.5-5.1) mmol/L 4.7 Chloride (98-107) mmol/L 101 Carbon Dioxide (21.0-32.0) mmol/L 28.6 Anion Gap (3-11) mmol/L 6.4 BUN (7-18) mg/dL 40 H Creatinine (0.70-1.30) mg/dL 1.1 Est GFR (CKD-EPI 2020) (mL/min/1.73m2) 65.38 Glucose (74-106) mg/dL 148 H Calcium (8.5-10.1) mg/dL 8.2 L Magnesium (1.8-2.4) mg/dL Ferritin (26-388) ng/mL Total Bilirubin (0.2-1.0) mg/dL 0.2 AST (15-37) U/L 36 ALT (16-63) U/L 42 Alkaline Phosphatase (46-116) U/L 142 H Lactate Dehydrogenase (85-227) U/L 552 H Creatine Kinase (39-308) U/L 34 L Troponin I (<or=60) ng/L C-Reactive Protein (0.0-0.3) mg/dL 2.37 H Total Protein (6.4-8.2) g/dL 6.1 L Albumin (3.4-5.0) g/dL 2.4 L Procalcitonin ng/mL COVID-19 Source SARS-CoV-2 (PCR) (Negative) Hep Bs Antigen (Negative) Hep Bs Antibody (See Note) Hep Bs Antibody, Quant (See Note) mIU/mL Hep B Core Total Ab (Negative) Hepatitis C Antibody (Negative) HIV 1&2 Ag/Ab, 4th Gen (Negative) Influenza Type A (PCR) (Negative) Influenza Type B (PCR) (Negative) Legionella Source Urine Legionella Ag (Negative) Legionella DNA (PCR) M. pneumoniae Source M. pneumoniae (PCR) Aspergillus Ag (EIA) (<0.5) index RSV (PCR) (Negative) Ur Strep pneumoniae Ag (Negative) TB Test Ag - Nil 1 Cancelled TB Test Ag - Nil 2 Cancelled TB Test (QFT) Interp Cancelled B-(1,3)-D-Glucan Quant (<60 pg/mL) pg/mL B-(1,3)-D-Glucan Qual (Negative) Add-On Test Request Range/Units 11/07/21 11/07/21 11/07/21 07:05 07:05 07:05 WBC (4.4-10.8) 10^3/uL 11.06 H RBC (4.36-5.78) 10^6/uL 5.36 Hgb (13.5-17.5) g/dL 15.9 Hct (40.0-50.0) % 47.4 MCV (80-95) fL 88 MCH (27.0-33.0) pg 29.7 MCHC (32.0-36.0) % 33.5 RDW (11.8-14.1) % 14.6 H Plt Count (130-400) 10^3/uL 201 MPV (8.0-11.0) fL 9.7 Immature Gran % 2.8 Neutrophils % 90.1 Lymphocytes % 2.3 Monocytes % 4.5 Eosinophils % 0.0 Basophils % 0.3 Nucleated RBC % (0.0-0.3) % 0.0 Absolute Neutrophils (1.2-6.7) 10^3/uL 9.97 H Absolute Lymphocytes (1.2-3.4) 10^3/uL 0.25 L Absolute Monocytes (0.1-0.8) 10^3/uL 0.50 Absolute Eosinophils (0.0-0.7) 10^3/uL 0.00 Absolute Basophils (0.0-0.2) 10^3/uL 0.03 PT (9.3-11.0) sec 11.1 H INR (0.9-1.1) 1.1 APTT (21.0-27.5) sec D-Dimer (<500) ng/mlFEU 2058 H VBG Lactate (0.6-1.4) mmol/L Sodium (136-145) mmol/L 135 L Potassium (3.5-5.1) mmol/L 4.5 Chloride (98-107) mmol/L 99 Carbon Dioxide (21.0-32.0) mmol/L 28.5 Anion Gap (3-11) mmol/L 7.5 BUN (7-18) mg/dL 40 H Creatinine (0.70-1.30) mg/dL 1.1 Est GFR (CKD-EPI 2020) (mL/min/1.73m2) 65.38 Glucose (74-106) mg/dL 158 H Calcium (8.5-10.1) mg/dL 8.4 L Magnesium (1.8-2.4) mg/dL 1.8 Ferritin (26-388) ng/mL Total Bilirubin (0.2-1.0) mg/dL AST (15-37) U/L ALT (16-63) U/L Alkaline Phosphatase (46-116) U/L Lactate Dehydrogenase (85-227) U/L Creatine Kinase (39-308) U/L Troponin I (<or=60) ng/L C-Reactive Protein (0.0-0.3) mg/dL 1.83 H Total Protein (6.4-8.2) g/dL Albumin (3.4-5.0) g/dL Procalcitonin ng/mL COVID-19 Source SARS-CoV-2 (PCR) (Negative) Hep Bs Antigen (Negative) Hep Bs Antibody (See Note) Hep Bs Antibody, Quant (See Note) mIU/mL Hep B Core Total Ab (Negative) Hepatitis C Antibody (Negative) HIV 1&2 Ag/Ab, 4th Gen (Negative) Influenza Type A (PCR) (Negative) Influenza Type B (PCR) (Negative) Legionella Source Urine Legionella Ag (Negative) Legionella DNA (PCR) M. pneumoniae Source M. pneumoniae (PCR) Aspergillus Ag (EIA) (<0.5) index RSV (PCR) (Negative) Ur Strep pneumoniae Ag (Negative) TB Test Ag - Nil 1 TB Test Ag - Nil 2 TB Test (QFT) Interp B-(1,3)-D-Glucan Quant (<60 pg/mL) pg/mL B-(1,3)-D-Glucan Qual (Negative) Add-On Test Request
[2021-11-07] MEDS: Levalbuterol 1.25 MG/3 ML UPD VIAL UPD (14:43)
[2021-11-07] MEDS: Senna TAB 1 TAB PO (20:16)
--- NOTE | 2021-11-07 20:51 | PGE_ITS ---
Date of Service Date of service: 11/07/21 Time of Service: 12:00 Assessment and Plan Assessment and plan (1) COVID-19: Status: Acute Assessment and plan: Continue remdesivir (course extended). Agree with abstaining from baricitinib due to concomittent fungal pneumonia. Continue decadron 6 mg daily. Encourage IS, acapella, proning. Wean HFNC as tolerated. CPAP at night if tolerates. (2) Pneumonia: Status: Acute Assessment and plan: Fungal. I have verified with the lab and they did send a fungal culture to [facility], but results are not yet available. Voriconazole level high. Discussed with pharmacy. Will hold for now as I suspect some of Ashly's sensations today may be side effects of voriconazole and will discuss with pulmonology and possibly ID. (3) Acute and chronic respiratory failure with hypoxia: Status: Acute Assessment and plan: Due to above, as above. Continue Stiolto; use scheduled Combivent and prn albuterol. Encourage pulmonary toilet. (4) Pulmonary fibrosis, unspecified: Status: Chronic Assessment and plan: As above (5) Hypersensitivity pneumonitis: Status: Acute Assessment and plan: Will need a lengthy steroid taper. He is steroid dependent as outpatient. (6) Hiatal hernia with GERD without esophagitis: Status: Acute Assessment and plan: continue omeprazole (7) DVT prophylaxis: Status: Acute Assessment and plan: enoxaparin 40 mg SC daily (8) Discharge planning issues: Status: Acute Assessment and plan: DNR/DNI Discussed with daughter Would benefit from Home Health nursing and PT on discharge. PT consulted. 1st positive test 10 days ago at home - retesting today.. Subjective Subjective Interval history since last seen: Ashly states he is not feeling as well today. He is more short of breath and he feels his mental focus is not as good. Otherwise, denies CP, nausea, feels he is thinking straight. He did not like the fact that the CPAP fell apart on him last night but seemed willing to try it again today. Exam Narrative Exam Narrative: General: Pleasant elderly male how is on humidified heated high flow NC, looks midly dyspneic, still able to complete sentences, A&Ox3 HEENT: EOMI, MMM Heart: RRR, no m/r/g Lungs: Diminished breath sounds B - very little N air entry Abdomen: soft, nontender, nondistended Extremities: +1 BLE edema in TEDS, improved. Objective Last Vital Signs Temp 36.0 C L 11/07/21 14:34 Pulse 100 H 11/07/21 17:06 Resp 21 11/07/21 14:34 BP 123/79 11/07/21 14:34 Pulse Ox 93 11/07/21 14:43 Laboratory Results - last 24 hr 11/03/21 11/05/21 11/05/21 10:45 23:37 23:37 WBC RBC Hgb Hct MCV MCH MCHC RDW Plt Count MPV Immature Gran % Neutrophils % Lymphocytes % Monocytes % Eosinophils % Basophils % Nucleated RBC % Absolute Neutrophils Absolute Lymphocytes Absolute Monocytes Absolute Eosinophils Absolute Basophils PT INR D-Dimer Sodium Potassium Chloride Carbon Dioxide Anion Gap BUN Creatinine Est GFR (CKD-EPI 2020) Glucose Calcium Magnesium C-Reactive Protein Voriconazole 8.1 Legionella Source result Legionella DNA (PCR) Negative TB Test Ag - Nil 1 Cancelled TB Test Ag - Nil 2 Cancelled TB Test (QFT) Interp Cancelled 11/07/21 11/07/21 11/07/21 07:05 07:05 07:05 WBC 11.06 H RBC 5.36 Hgb 15.9 Hct 47.4 MCV 88 MCH 29.7 MCHC 33.5 RDW 14.6 H Plt Count 201 MPV 9.7 Immature Gran % 2.8 Neutrophils % 90.1 Lymphocytes % 2.3 Monocytes % 4.5 Eosinophils % 0.0 Basophils % 0.3 Nucleated RBC % 0.0 Absolute Neutrophils 9.97 H Absolute Lymphocytes 0.25 L Absolute Monocytes 0.50 Absolute Eosinophils 0.00 Absolute Basophils 0.03 PT 11.1 H INR 1.1 D-Dimer 8 H Sodium 135 L Potassium 4.5 Chloride 99 Carbon Dioxide 28.5 Anion Gap 7.5 BUN 40 H Creatinine 1.1 Est GFR (CKD-EPI 2020) 65.38 Glucose 158 H Calcium 8.4 L Magnesium 1.8 C-Reactive Protein 1.83 H Voriconazole Legionella Source Legionella DNA (PCR) TB Test Ag - Nil 1 TB Test Ag - Nil 2 TB Test (QFT) Interp
[2021-11-07 20:57] LABS: Source Nasal/Nares
[2021-11-07 21:33] LABS: COVID-19 PCR POSITIVE (Negative)
[2021-11-07 22:09] LABS: Blastomyces Ab, EIA Negative (Negative)
[2021-11-08] VITALS (9 sets, daily range): BP systolic 138–151; BP diastolic 89–100; PULSE 63–91; RESP 18–22; TEMP 31–36.2; O2SAT 92–95
--- NOTE | 2021-11-08 05:59 | NUR.NOTE ---
Nursing Note: No BM overnight. Pt is passing flatus. Patient discussed end of life with this magnetic tape typewriter operator. Patient expressed, My bowels are shutting down, this is another signs of my time being on on this earth Pt reminded he is still passing flatus. and will most likely have BM today with all the bowel care given. VSS, Afebrile. Pt tolerating HFNC well. Pt Smiled and joked around a little tonight as well.
[2021-11-08] MEDS: Albuterol HFA 8 GM 60 PUFF INH IH (07:41)
[2021-11-08] MEDS: Tiotropium/Olodaterol 10 PUFF INHALER 2 PUFF IH (07:41)
--- NOTE | 2021-11-08 09:29 | CMPROGNOTE_ITS ---
- If Service Date Differs Date of service: 11/08/21 Time of Service: 09:29 Care Management Progress Note S/O: Oniel has verbalized wanting to transition to comfort care; Palliative consult with PAUL Cerda to determine where Oniel would like to be, and if remaining at [facility] who he would like permitted for visitation. CM continues to follow. A: 86 year old male re-admitted to [facility] 11/01/21 for COVID Pneumonia. P: Oniel continues to be closely monitored and treated; CM continues to follow. No additional services anticipated at this time, Oniel will return home, follow up with outpatient providers and transport via private vehicle with his daughter.
[2021-11-08] MEDS: Pantoprazole 40 MG VIAL IVP (14:42)
--- NOTE | 2021-11-08 15:55 | W.PALLCONSUL ---
Date of service: 11/08/21 Time of Service: 15:55 History of Present Illness Narrative: Ashly Galindo is an 86 y.o. with multiple comorbidities who is currently postive for COVID-19. He has decided to transition to comfort focused care. Palliative was consulted to help determine next steps including where he prefers to and if he chooses to stay at the hospital, if he wants visitors. Ashly was seen in his hospital room. He reports that he has been talking to family on the phone. Talking on the phone exhausts him. He is clear that he wants to stay at the hospital for end of life care. He does not want to go home on hospice. He is planning to take his oxygen off this evening. He will receive morphine for comfort. When discussing the visitor policy, he states, maybe it is best if I don't have any visitors. He states the only thing he feels bad about r/t not having visitors is that his grandson, Venkat is on his way to come see him. He does not want his family taking from what they are doing for him. He does not think they need to come see him. Assessment and Plan Assessment and plan (1) Acute and chronic respiratory failure with hypoxia: Status: Acute (2) Fungal pneumonia: Status: Acute (3) COVID-19: Status: Acute (4) Chronic kidney disease, stage 3: Status: Acute (5) Pulmonary fibrosis, unspecified: Status: Chronic (6) Palliative care encounter: Status: Acute Assessment and plan: Ashly is a very pleasant 86 year old man with a past medical history significant for acute on chronic respiratory failure with hypoxia, fungal pneumonia, COVID-19, pulmonary fibrosis, chronic kidney disease who is currently hospitalized and transitioning to comfort focused care. The plan is for him to remove his oxygen this evening, he will get morphine for comfort. Palliative was consulted to review his plan and determine where he wanted to and if he wanted to have visitors. He is clear that he wants to at the hospital. He does not want to go home for end-of-life care. He does not want to be a burden to his family. He has also stated that he thinks it would be better if he does not have any visitors. We discussed that he is free to change his mind about visitors at any time. Phone call to his daughter, Smitha to discuss what he has decided. She verbalizes understanding and states that she may still come to the hospital with her son Venkat when he arrives from [place] and see if Ashly allows them to visit. Palliative will follow as needed. Review of Systems Narrative: Denies concerns. [facility] All Active Problems (Updated 11/08/21 @ 18:48 by Zaida Garcia NP) Palliative care encounter (Acute) Discharge planning issues (Acute) Fungal pneumonia (Acute) DVT prophylaxis (Acute) Acute and chronic respiratory failure with hypoxia (Acute) COVID-19 (Acute) Chronic kidney disease, stage 3 (Acute) Iatrogenic hyperthyroidism (Acute) Prediabetes (Acute) Pulmonary nodules (Acute) Hypersensitivity pneumonitis (Acute) Edema of both lower extremities (Acute) Chronic respiratory failure with hypoxia (Chronic) Pneumonia (Acute) Pulmonary fibrosis, unspecified (Chronic ~07/2021) 08/09/21 Dr Cam Pulmonology, [facility] Chronic diarrhea (Acute ~03/2021) 04/12/21 [facility]. Oscar WANG Sciatica (Acute) Hiatal hernia with GERD without esophagitis (Acute) Carpal tunnel syndrome (Acute) Mixed hyperlipidemia (Acute) Testicular hypofunction (Acute) Anemia (Chronic) Sensorineural hearing loss of both ears (Acute) Hypothyroidism (Chronic) Pulmonary fibrosis (Acute) Aortic valve replaced (Acute ~05/21/16) Hypertension (Chronic) Status post cataract extraction and insertion of intraocular lens of left eye (Chronic 01/05/18) Status post cataract extraction and insertion of intraocular lens of right eye (Chronic 01/05/18) Optic disc cupping (Chronic) Epiretinal membrane (ERM) of left eye (Chronic) Hypertensive retinopathy, grade 2 (Chronic) Medical History Cortical cataract of both eyes Malaria Nuclear cataract of both eyes Surgical History H/O colonoscopy (~12/2019) H/O esophagogastroduodenoscopy Heart valve replaced (~05/2016) Aortic valve History of lung biopsy (~2005) Family History Father Heart attack Mother Heart attack Daughter Cancer Hodgkin's Lymphoma Grandson Cancer synovial sarcoma Social History Smoking/Tobacco Use Status: Former Tobacco Use Quit Date: 02/17/09 Tobacco: How many years used: 3 Smoking risk assessment performed?: Yes Alcohol Intake: never Drug use: Never Substance use type: does not use Adopted: No Foster care: No Household members: family Housing: house Number of Children: 4 number of grandchildren: 17 Communication Needs: Hard of Hearing Do you need help understanding health information?: Often Sexually active: No What is your relationship status?: Panel score (0-1 are the most socially isolated patients): 0 Ceci/Islam: Mormonism Do you feel safe at home: Yes Do you feel safe in your relationship?: Yes Exam Narrative Exam Narrative: General: very pleasant, elderly man, laying in bed, wearing oxygen. He is alert and oriented, answers questions appropriately. He appears fatigued. HEENT: normocephalic, atraumatic, EOMI, MMM. Neck: supple. Respiratory: SOB with talking, wearing high flow O2. Extremities: BLE edema. Results Last Vital Signs Temp 36.2 C L 11/08/21 11:30 Pulse 84 11/08/21 12:00 Resp 20 11/08/21 11:30 BP 143/100 H 11/08/21 11:30 Pulse Ox 92 11/08/21 11:30 Labs Result diagrams: 11/07/21 07:05 11/07/21 07:05 Labs: Laboratory Results - last 24 hr 11/05/21 11/05/21 11/07/21 12:22 23:37 19:30 Blastomyces Ab (EIA) Negative COVID-19 Source Nasal/Nares SARS-CoV-2 (PCR) POSITIVE A* Urine Histoplasma Ag Not Detected U Histoplasma Ag Index Not Detected
[2021-11-08 18:04] LABS: Blastomyces Ag Result Not Detected; Blastomyces Ag Value Not Detected
--- NOTE | 2021-11-08 19:01 | W.PM.PROGNOT ---
Date of Service Date of service: 11/08/21 Time of Service: 10:30 Assessment and Plan Assessment and plan (1) COVID-19: Status: Acute Assessment and plan: Ashly elected to go on comfort measures today. He would like to take his oxygen off and start on a morphine drip sometime tonight. Will focus on comfort measures only. Continue decadron 6 mg daily. O2 for comfort only. (2) Pneumonia: Status: Acute Assessment and plan: Fungal. I have verified with the lab and they did send a fungal culture to [facility], but results are not yet available. Voriconazole level high and voriconazole was d/c'ed. Ashly elected to go on comfort measures today, so we will not be resuming antifungal coverage. (3) Acute and chronic respiratory failure with hypoxia: Status: Acute Assessment and plan: Due to above, as above. Continue Stiolto; use scheduled Combivent and prn albuterol. (4) Pulmonary fibrosis, unspecified: Status: Chronic Assessment and plan: As above (5) Hypersensitivity pneumonitis: Status: Acute Assessment and plan: Focusing on comfort measures only (6) Hiatal hernia with GERD without esophagitis: Status: Acute Assessment and plan: continue omeprazole (7) DVT prophylaxis: Status: Acute Assessment and plan: D/c DVT ppx as the patient is now on comfort measures only (8) Discharge planning issues: Status: Acute Assessment and plan: DNR/DNI Discussed with daughter Tracy and with palliative care. Subjective Subjective Interval history since last seen: Ashly states that he is ready for comfort measures. He thinks that his lungs are not recovering and his ready to . He told me that he did not want to return home and would like to here. He thought the idea of taking off the oxygen and going on a morphine drip sounded reasonable. He initiated this conversation. He also admitted to being constipated but specifically declined any more aggressive interventions for this, stating that he is comfortable. He met with palliative care to discuss his wishes as well. Exam Narrative Exam Narrative: General: Pleasant elderly male on humidified heated high flow NC, appears comfortable HEENT: EOMI, MMM Heart: not auscultated Lungs: nonlabored breathing Abdomen: nondistended Extremities: covered in blankets. Objective Last Vital Signs Temp 36.2 C L 11/08/21 11:30 Pulse 84 11/08/21 12:00 Resp 20 11/08/21 11:30 BP 143/100 H 11/08/21 11:30 Pulse Ox 92 11/08/21 11:30 Laboratory Results - last 24 hr 11/05/21 11/05/21 11/07/21 12:22 23:37 19:30 Blastomyces Ab (EIA) Negative COVID-19 Source Nasal/Nares SARS-CoV-2 (PCR) POSITIVE A* Urine Histoplasma Ag Not Detected U Histoplasma Ag Index Not Detected
[2021-11-08] MEDS: MORPHine 250 MG in Normal Saline 245 ML IV (21:45)
--- NOTE | 2021-11-08 21:51 | NUR.NOTE ---
Nursing Note: Patient has chosen to begin comfort measures at this time. Morphine gtt began at 21:45 @ 1mg/hr per orders and as patient wishes. High Flow NC will be titrated off to nasal cannula for comfort reasons only- per patient wishes. Patient is currently resting in bed pain free. Pt understands the process of what is being done and this law writer answered all the patients questions to be best of his ability. Will continue to monitor closely.
[2021-11-08] MEDS: LORazepam 1 MG TAB PO (23:04)
[2021-11-09 00:27] VITALS: RESP 20
[2021-11-09 05:04] VITALS: PULSE 104; RESP 20; O2SAT 84
[2021-11-09] MEDS: LORazepam 20 MG/10 ML VIAL IV/SC ×3 (07:55→10:42)
[2021-11-09] MEDS: Glycopyrrolate 0.2 MG/1 ML VIAL IVP ×2 (07:55→10:42)
--- NOTE | 2021-11-09 10:27 | PDOC.CMPRO ---
- If Service Date Differs Date of service: 11/09/21 Time of Service: 10:27 Care Management Progress Note S/O: A: 86 year old male re-admitted to [facility] 11/01/21 for COVID Pneumonia. P: Hez continues to be closely monitored and treated; CM continues to follow. No additional services anticipated at this time, Oniel will return home, follow up with outpatient providers and transport via private vehicle with his daughter.
[2021-11-09] MEDS: Normal Saline Flush 10 ML SYR IVP (10:45)
[2021-11-09 11:25] LABS: TB Interpretation Negative (Negative); TB2 Ag minus Nil 0.01 IU/mL
--- NOTE | 2021-11-09 12:39 | W.PM.DDS ---
Date of service: 11/09/21 Time of Service: 12:39 Discharge Plan Disposition Patient Disposition: Discharge Details Reason For Visit: COVID Pneumonia Admit Date/Time: 11/01/21 11:59 Admit Provider: Michele Garza Attending Provider: Michele Garza Primary Care Provider: Josie Singh Hospital Course Hospital Course: Mr Galindo was an 86 year old male with PMHx of chroinc hypoxic respiratory failure due to pulmonary fibrosis and hypersensitivity pneumonitis, as well as h/o hypertension, prediabetes, hypothyroidism, who was a patient on [facility] hospitalist service from 11/01/21 until he on 11/09/21 after being admitted with pneumonia and acute on chronic hypoxic respiratory failure due to COVID-19. For this, he was treated with remdesivir, systemic corticosteroids, bronchodilators, humidified heated high flow oxygen and CPAP. There is a also a concern that there could have been an underlying fungal pneumonia, though this was not clinically confirmed (sputum cultures are still pending at the time of writing this note; fungus in sputum could have been due to contamination). Dr Segura of pulmonology participated in the care of the patient, and he did receive a trial of voriconazole. His condition was not improving, however, and on 11/08/21 he elected to go on comfort measures. He peacefully today at 12:02 pm (pronounced at 12:07 pm). We appreciate the opportunity to help take of Ashly in his final days and wish his family well. Discharge Data Cause of : COVID-19 Discharge Sum: Prov Provider Primary care physician: Josie Singh Admitting clinician: Michele Garza Attending physician on admission: Michele Garza Consults: 11/01/21 13:52 Pulmonology Consult [CONS] Routine Consulting Provider: Marla Segura Consultation Status:: Follow-up needed Clarification:: Manage/follow per spec. Reason for consult:: evaluate recurrent pneumonia, COVID + and positive for fungitel study 11/08/21 11:54 Palliative Care Consult [CONS] Routine Consultation Status:: Follow-up needed Clarification:: Manage/follow per spec. Reason for consult:: COVID-19, comfort measures Pronouncing clinician: Facundo Lees Discharge Sum: Diag PCOD Cause of : COVID-19 Contributing Factors (1) Acute and chronic respiratory failure with hypoxia: (2) Pulmonary fibrosis, unspecified: (3) Hypersensitivity pneumonitis: (4) Hiatal hernia with GERD without esophagitis: (5) Prediabetes: (6) Fungal pneumonia: (7) Hypothyroidism: (8) Hypertension: Discharge Sum: Summary Date and Time Admission Date: 11/01/2208/15/22 11:59 Date of : 11/09/21 Time of : 12:02 Summary Details: Mr Galindo was an 86 year old male with PMHx of chroinc hypoxic respiratory failure due to pulmonary fibrosis and hypersensitivity pneumonitis, as well as h/o hypertension, prediabetes, hypothyroidism, who was a patient on [facility] hospitalist service from 11/01/21 until he on 11/09/21 after being admitted with pneumonia and acute on chronic hypoxic respiratory failure due to COVID-19. For this, he was treated with remdesivir, systemic corticosteroids, bronchodilators, humidified heated high flow oxygen and CPAP. There is a also a concern that there could have been an underlying fungal pneumonia, though this was not clinically confirmed (sputum cultures are still pending at the time of writing this note; fungus in sputum could have been due to contamination). Dr Segura of pulmonology participated in the care of the patient, and he did receive a trial of voriconazole. His condition was not improving, however, and on 11/08/21 he elected to go on comfort measures. He peacefully today at 12:02 pm (pronounced at 12:07 pm). We appreciate the opportunity to help take of Ashly in his final days and wish his family well. Additional Data Confirmation of as documented by pronouncing clinician: no pulse, no respirations, no heart sounds and pupils fixed and dilated Family: contacted Attending/PCP notified?: Yes Attending Physician: Michele Saavedra Was code activated?: No Autopsy requested?: No sample examiner notified?: No Organ bank notified?: No Advance directives: No Hospice patient?: No
== END 2021-11-09 12:02 | disposition expired | DRG 177 ==
LOC: ER 12:04 → MS 13:26
PROVIDERS: Internal Medicine; Admitting Provider Internal Medicine; Emergency Provider Physician Assistant; PCP Nurse Practitioner; Visit Provider Internal Medicine
DX: U07.1 COVID-19 (principal); J12.82 Pneumonia due to coronavirus disease 2019; J96.21 Acute and chronic respiratory failure with hypoxia; J16.8 Pneumonia due to other specified infectious organisms; J67.9 Hypersensitivity pneumonitis due to unspecified organic dust; D84.821 Immunodeficiency due to drugs; B48.8 Other specified mycoses; J84.10 Pulmonary fibrosis, unspecified; N18.30 Chronic kidney disease, stage 3 unspecified; R73.03 Prediabetes; R91.8 Other nonspecific abnormal finding of lung field; R60.0 Localized edema; K52.9 Noninfective gastroenteritis and colitis, unspecified; K44.9 Diaphragmatic hernia without obstruction or gangrene; K21.9 Gastro-esophageal reflux disease without esophagitis; D64.9 Anemia, unspecified; E29.1 Testicular hypofunction; H35.039 Hypertensive retinopathy, unspecified eye; M54.30 Sciatica, unspecified side; E78.2 Mixed hyperlipidemia; H90.3 Sensorineural hearing loss, bilateral; E03.9 Hypothyroidism, unspecified; Z95.2 Presence of prosthetic heart valve; I12.9 Hypertensive chronic kidney disease with stage 1 through stage 4 chronic kidney disease, or unspecified chronic kidney disease; Z87.891 Personal history of nicotine dependence; Z51.5 Encounter for palliative care
CPT/HCPCS: 36415; 71275; 80048; 80053; 82550; 84145; 86612; 86698; 86704; 86706; 86803; 87040; 87077; 87107; 87305; 87340; 87389; 87449; 87635; 87637; 87801; 93005; 94640; 96365; 96375; 99285; J1650; 71045; 80299; 82728; 83605; 83615; 83735; 84484; 85025; 85379; 85610; 85730; 86140; 86480; 87070; 87205; 87385; 87581; 87899; 93010; 94660; 94668; 99223; 99231; 99232; J0248; J0696; J2930; J3475; J3490; J7613; J7614; J7620; J8540